=== PATIENT | male | born 1955 | race Caucasian/White ===

== ENCOUNTER → 2017-08-12 08:03 | Outpatient (CLI) | payer BC, SELFPAY ==
[2017-08-12 10:21] LABS: Anion Gap 4 (5-15); BUN 16 mg/dL (7-18); BUN/Creat Ratio 16.6 RATIO (10-20); Calcium,Total 8.4 mg/dL (8.5-10.1); Chloride 105 mmol/L (98-107); Creatinine, Serum 0.96 mg/dL (0.70-1.30); EST Glomerular Filtration Rate 84 mL/min (>60); Est Glom Filt Rate - Afr Amer 101 mL/min (>60); Glucose 102 mg/dL (74-106); Sodium Level 140 mmol/L (136-145)
== END ==
PROVIDERS: Family Provider Family Medicine; PCP Family Medicine; Visit Provider Family Medicine
DX: I10 Essential (primary) hypertension (principal)
CPT/HCPCS: 36415; 80048

== ENCOUNTER → 2018-01-27 08:00 | Outpatient (CLI) | payer OTHER, SELFPAY ==
[2018-01-27 10:52] LABS: ALB/GLOB Ratio 1.2 RATIO (0.9-2.4); AST(SGOT) 18 U/L (15-37); Alanine Aminotransfer ALT/SGPT 27 U/L (16-61); Albumin, Serum 3.8 g/dL (3.2-5.0); Alkaline Phosphatase 65 U/L (45-117); Anion Gap 6 (5-15); BUN 11 mg/dL (7-18); BUN/Creat Ratio 10.7 RATIO (10-20); Calcium,Total 8.5 mg/dL (8.5-10.1); Chloride 106 mmol/L (98-107); Cholesterol 149 mg/dL (200); Creatinine, Serum 1.03 mg/dL (0.70-1.30); EST Glomerular Filtration Rate 77 mL/min (>60); Est Glom Filt Rate - Afr Amer 94 mL/min (>60); Globulin 3.2 g/dL (2.2-4.2); Glucose 103 mg/dL (74-106); High Density Lipoprotein 64 mg/dL; PSA,Total - Annual Screen 0.63 ng/mL (0.00-4.00); Potassium 4.1 mmol/L (3.5-5.1); Sodium Level 142 mmol/L (136-145); Triglycerides 68 mg/dL; Very Low Density Lipoprotein 14 mg/dL (5-40)
== END ==
PROVIDERS: Family Provider Family Medicine; PCP Family Medicine; Visit Provider Family Medicine
DX: E78.5 Hyperlipidemia, unspecified (principal); Z12.5 Encounter for screening for malignant neoplasm of prostate
CPT/HCPCS: 36415; 80053; 80061; 84153; G0103

== ENCOUNTER → 2019-02-01 | Outpatient (CLI) | payer OTHER, SELFPAY ==
[2019-02-01 10:59] LABS: ALB/GLOB Ratio 1.3 RATIO (0.9-2.4); AST(SGOT) 16 U/L (15-37); Alanine Aminotransfer ALT/SGPT 25 U/L (16-61); Alkaline Phosphatase 67 U/L (45-117); Anion Gap 7 (5-15); BUN 11 mg/dL (7-18); BUN/Creat Ratio 11.1 RATIO (10-20); Calcium,Total 8.7 mg/dL (8.5-10.1); Chloride 106 mmol/L (98-107); Cholesterol 147 mg/dL (200); Creatinine, Serum 0.99 mg/dL (0.70-1.30); EST Glomerular Filtration Rate 80 mL/min (>60); Est Glom Filt Rate - Afr Amer 97 mL/min (>60); Globulin 3.1 g/dL (2.2-4.2); Glucose 96 mg/dL (74-106); High Density Lipoprotein 76 mg/dL; PSA,Total - Annual Screen 1.43 ng/mL (0.00-4.00); Potassium 3.8 mmol/L (3.5-5.1); Protein, Total 7.1 g/dL (6.4-8.2); Sodium Level 143 mmol/L (136-145); Triglycerides 74 mg/dL; Very Low Density Lipoprotein 15 mg/dL (5-40)
== END | disposition home or self-care (01) ==
LOC: MFPLAB 08:02
PROVIDERS: Family Provider Family Medicine; PCP Family Medicine; Referring Provider Family Medicine; Visit Provider Family Medicine
DX: I10 Essential (primary) hypertension (principal); Z12.5 Encounter for screening for malignant neoplasm of prostate
CPT/HCPCS: 36415; 80053; 80061; 84153; G0103

== ENCOUNTER → 2019-02-16 | Outpatient (CLI) | payer OTHER, SELFPAY ==
--- NOTE | 2019-02-18 17:04 | STRESSREP_ITS ---
Stress Test Report Date: 02/16/2019 Procedure: Exercise tolerance test/imaging study Indications: Chest pain Consent: Per the patient Procedure: The patient exercised on a Idris protocol for 9 minutes and 30 seconds achieving a peak heart rate of 164 bpm (105 % predicted maximal heart rate) with a peak blood pressure 184/62 mmHg and a peak MET capacity of 10.9 METs. The baseline ECG demonstrated normal sinus rhythm. The peak exercise ECG demonstrated sinus tachycardia with about [address] depression in the inferior and lateral leads. EKG during recovery revealed slow return of ST segments to baseline [There were no cardiac dysrhythmias pretest, during exercise, or recovery]. The functional capacity was considered above average for age. There was [no complaint of chest discomfort during exercise or recovery]. The examination was discontinued secondary to discomfort. Impression: 1. Technically adequate (percent predicted maximal heart rate greater than 85%) exercise tolerance test 2. Stress test is positive for exercise-induced EKG changes of ischemia 3. The test test is negative for exercise-induced chest pain 4. Functional capacity is above average 5. Nuclear images pending Myocardial perfusion imaging study: Technique: The patient was injected with 11.6 mCi of technetium 99m Cardiolite and s ubsequently rest SPECT Cardiolite nuclear imaging was obtained in the horizontal long, vertical long, and short axis views. The patient exercised on a Idris protocol. Please see above for details. The patient was injected with 33.9 mCi of technetium 99m Cardiolite and subsequently stress SPECT Cardiolite nuclear imaging was obtained in the horizontal long, vertical long, and short axis views. A gated Cardiolite study at peak stress was obtained. Interpretation: Rest and stress SPECT Cardiolite nuclear imaging status post realignment, normalization, and attenuation correction, demonstrates mildly decreased radioisotope uptake in the inferior wall on both the rest and stress images prior to attenuation correction. After attenuation correction there appears to be normal overall myocardial radioisotope uptake. The gated Cardiolite study demonstrates [no significant regional wall motion abnormalities]. The reported LVEF is 63 %. Impression: 1. There is[no evidence of significant ischemia or infarction on the nuclear portion of the test. There were however significant EKG changes suggestive of ischemia as noted above. Balanced ischemia can be considered in the differentia l diagnosis]. 2. The gated Cardiolite study reports an LVEF of 63 %. This note was generated with Dragon dictation software. It may contain incorrect words, spelling, and punctuation that were not noted in checking the note before signing.
== END | disposition home or self-care (01) ==
LOC: CVS 06:06
PROVIDERS: Family Provider Family Medicine; PCP Family Medicine; Referring Provider Family Medicine; Visit Provider Family Medicine
DX: R07.9 Chest pain, unspecified (principal)
CPT/HCPCS: 78452; 93017; A9500; A4216

== ENCOUNTER → 2020-02-06 | Outpatient (CLI) | payer MEDICARE, OTHER, SELFPAY ==
[2020-02-06 10:12] LABS: ALB/GLOB Ratio 1.4 RATIO (0.9-2.4); AST(SGOT) 21 U/L (15-37); Alanine Aminotransfer ALT/SGPT 36 U/L (16-61); Alkaline Phosphatase 66 U/L (45-117); Anion Gap 6 (5-15); BUN 14 mg/dL (7-18); Calcium,Total 8.7 mg/dL (8.5-10.1); Chloride 103 mmol/L (98-107); Creatinine, Serum 0.82 mg/dL (0.70-1.30); EST Glomerular Filtration Rate 100 mL/min (>60); Est Glom Filt Rate - Afr Amer 120 mL/min (>60); Globulin 2.9 g/dL (2.2-4.2); Glucose 104 mg/dL (74-106); PSA,Total - Annual Screen 1.03 ng/mL (0.00-4.00); Potassium 4.1 mmol/L (3.5-5.1); Protein, Total 6.9 g/dL (6.4-8.2); Sodium Level 139 mmol/L (136-145)
== END | disposition home or self-care (01) ==
LOC: MFPLAB 08:57
PROVIDERS: PCP Family Medicine; Referring Provider Family Medicine; Visit Provider Family Medicine
DX: E78.5 Hyperlipidemia, unspecified (principal); Z12.5 Encounter for screening for malignant neoplasm of prostate
CPT/HCPCS: 36415; 80053; 84153; G0103

== ENCOUNTER → 2020-02-16 | Outpatient (CLI) | payer MEDICARE, OTHER, SELFPAY ==
--- NOTE | 2020-02-16 08:35 | US_ITS ---
PROCEDURES: ULTRASOUND AORTA REASON FOR EXAM: Male, 64 years old. AAA SCREENING TECHNIQUE: Ultrasound evaluation of the aorta was performed with real-time and static bobo-scale imaging. COMPARISON: None. FINDINGS: There is atherosclerotic plaque formation of the abdominal aorta. Aorta measures: Proximal 1.9 cm. Middle 1.8 cm. Distal 1.8 cm. Aorta measure transversely: Proximal 1.8 cm. Middle 1.5 cm. Distal 1.6 cm. Right iliac artery measures: 1.1 cm. Right iliac artery measure transversely: 1.2 cm. Left iliac artery measures: 1.1 cm. Left iliac artery measure transversely: 1.3 cm. There is no demonstrated aneurysm.. US/Aorta IMPRESSION: Normal abdominal aorta. Electronically Signed: Bobby Hawthorne, at 12:37 EDT , Service support ,
== END | disposition home or self-care (01) ==
LOC: US 08:34
PROVIDERS: PCP Family Medicine; Referring Provider Family Medicine; Visit Provider Family Medicine
DX: Z00.00 Encounter for general adult medical examination without abnormal findings (principal); I10 Essential (primary) hypertension
CPT/HCPCS: 76775

== ENCOUNTER → 2021-02-12 07:16 | Outpatient (CLI) | payer MEDICARE, OTHER, SELFPAY ==
[2021-02-12 10:49] LABS: ALB/GLOB Ratio 1.3 RATIO (0.9-2.4); AST(SGOT) 22 U/L (15-37); Alanine Aminotransfer ALT/SGPT 32 U/L (16-61); Albumin, Serum 3.9 g/dL (3.2-5.0); Alkaline Phosphatase 59 U/L (45-117); Anion Gap 2 (5-15); BUN 17 mg/dL (7-18); BUN/Creat Ratio 18.2 RATIO (10-20); Calcium,Total 8.7 mg/dL (8.5-10.1); Chloride 105 mmol/L (98-107); Cholesterol 165 mg/dL (200); Creatinine, Serum 0.93 mg/dL (0.70-1.30); EST Glomerular Filtration Rate 86 mL/min (>60); Est Glom Filt Rate - Afr Amer 104 mL/min (>60); Glucose 103 mg/dL (74-106); High Density Lipoprotein 80 mg/dL; PSA,Total - Annual Screen 0.77 ng/mL (0.00-4.00); Potassium 3.9 mmol/L (3.5-5.1); Protein, Total 6.9 g/dL (6.4-8.2); Sodium Level 138 mmol/L (136-145); Triglycerides 54 mg/dL; Very Low Density Lipoprotein 11 mg/dL (5-40)
== END ==
PROVIDERS: PCP Family Medicine; Referring Provider Family Medicine; Visit Provider Family Medicine
DX: I10 Essential (primary) hypertension (principal); Z12.5 Encounter for screening for malignant neoplasm of prostate
CPT/HCPCS: 36415; 80053; 80061; 84153; G0103

== ENCOUNTER → 2022-02-12 | Outpatient (CLI) | payer MEDICARE, OTHER, SELFPAY ==
[2022-02-12 11:01] LABS: ALB/GLOB Ratio 1.2 RATIO (0.9-2.4); AST(SGOT) 18 U/L (15-37); Alanine Aminotransfer ALT/SGPT 29 U/L (16-61); Albumin, Serum 3.7 g/dL (3.2-5.0); Alkaline Phosphatase 53 U/L (45-117); Anion Gap 7 (5-15); BUN 15 mg/dL (7-18); BUN/Creat Ratio 16.1 RATIO (10-20); Calcium,Total 8.8 mg/dL (8.5-10.1); Chloride 106 mmol/L (98-107); Cholesterol 147 mg/dL (200); Creatinine, Serum 0.93 mg/dL (0.70-1.30); EST Glomerular Filtration Rate 86 mL/min (>60); Est Glom Filt Rate - Afr Amer 104 mL/min (>60); Glucose 104 mg/dL (74-106); High Density Lipoprotein 67 mg/dL; PSA,Total - Annual Screen 0.84 ng/mL (0.00-4.00); Potassium 3.5 mmol/L (3.5-5.1); Protein, Total 6.7 g/dL (6.4-8.2); Sodium Level 142 mmol/L (136-145); Triglycerides 71 mg/dL; Very Low Density Lipoprotein 14 mg/dL (5-40)
== END | disposition home or self-care (01) ==
LOC: MFPLAB 07:59
PROVIDERS: PCP Family Medicine; Visit Provider Family Medicine
DX: Z00.00 Encounter for general adult medical examination without abnormal findings (principal); Z12.5 Encounter for screening for malignant neoplasm of prostate; I10 Essential (primary) hypertension
CPT/HCPCS: 36415; 80053; 80061; 84153; G0103

== ENCOUNTER 2022-05-23 06:55 | Day surgery (SDC) | payer MEDICARE, OTHER, SELFPAY ==
[2022-05-23 07:17] VITALS: BP 157/68; PULSE 64; RESP 16; TEMP 36.2; O2SAT 100; BMI 21.4
[2022-05-23] MEDS: Lactated Ringers 1,000 ML 15 ML IV (07:20)
--- NOTE | 2022-05-23 07:46 | H&P.OPEN ---
HPI - General HPI Narrative DENYS AGUILAR, is a 67 M who presents for colonoscopy. His last colonoscopy was 10 years ago and was normal. He denies any abdominal pain or blood in the stool. He has no family history of colon cancer. [facility] Medical History (Updated 05/21/22 @ 11:52 by Sherie Potts) Alcohol use Benign essential HTN High cholesterol History of echocardiogram History of stress test Hyperlipidemia, unspecified Hypertension Non-smoker Wears contact lenses Wears glasses Home Medications atorvastatin 10 mg tablet 10 mg PO QHS 12/31/16 [History Last Taken 12/31/16] epinephrine 0.3 mg/0.3 mL injection, auto-injector 0.3 mg (0.3 mL) IM X1 #2 syringes 12/31/16 [Rx Last Taken Unknown] ramipril 10 mg capsule 20 mg PO DAILY 12/31/16 [History Last Taken 05/23/22 05:00] amlodipine 10 mg tablet (Norvasc) 10 mg PO DAILY 04/17/22 [History Last Taken 05/23/22 05:00] aspirin 81 mg tablet,delayed release (Adult Low Dose Aspirin) 81 mg PO DAILY 04/17/22 [History Last Taken Unknown] latanoprost 0.005 % eye drops 1 drp ophthalmic (eye) DAILY 04/17/22 [History Last Taken Unknown] multivitamin 1 tab PO DAILY 04/17/22 [History Last Taken Unknown] omega 8-jtc-lps-fish oil 300 mg-1,000 mg capsule (Fish Oil) 1 cap PO DAILY 04/17/22 [History Last Taken Unknown] psyllium husk 0.4 gram capsule (Daily Fiber) 0.8 g PO DAILY 04/17/22 [History Last Taken Unknown] hydrochlorothiazide 12.5 mg tablet 12.5 mg PO DAILY 05/21/22 [History Last Taken Unknown] Allergy/AdvReac Type Severity Reaction Status Date / Time hornet venom Allergy Swelling Verified 05/23/22 07:16 venom-honey bee Allergy Swelling Verified 05/23/22 07:16 Family History (Updated 04/17/22 @ 08:43 by Sherice Hutson) Brother Renal failure Leukemia Brother Throat cancer Father Lung cancer Mother Heart disease Surgical History (Updated 05/21/22 @ 11:52 by Sherie Potts) History of colonoscopy History of eye surgery History of removal of skin mole History of right knee surgery Social History (Updated 04/17/22 @ 08:44 by Sherice Hutson) household members: spouse current occupational status: retired Smoking Status: Never smoker Past Medical/Surgical History Planned Operation Planned Operative Procedure/s: CSCOPE Previous Hospitalizations/Surgeries HX Hospitalizations: No Any Problems With Anesthesia: No You/Your Family Experience Fever (Hyperthermia) With Anes: No Cholinesterase deficiency: No Cardiovascular Hx Hypertension: Yes (COTNROLLED WITH MED) Hx Cardiac Catheterization: No Respiratory Hx Chronic Obstructive Pulmonary Disease (COPD): No Hx Asthma: No Hx Emphysema: No Hx Sleep Apnea: No Hx Respiratory Tract Infection/Cold (presently): No Do You Snore Loudly (louder than talking or can be heard): No Do You Often Feel Tired/ Fatigued/ Sleepy Dring Daytime?: No Has Anyone Observed You Stop Breathing During Sleep?: No Result (for STOP score): Negative Smoking Status: Never smoker Neurological Hx Seizures: No Hx Back Injury/Pain: No Does patient have nerve stimulator: No Blood Disorder Hx High Cholesterol: No Hx Hepatitis: No Hx Cirrhosis: No Endocrine Hx Diabetes: No Psycho/Social Hx Substance Use: No Hx Alcohol Use: Yes (24 FL OZ OF WINE OR BEER) Hx Anxiety: No Hx Depression: No Miscellaneous Recent Exposure to Contagious Disease: No Allergies hornet venom Allergy (Verified 05/23/22 07:16) Swelling Has Epipen venom-honey bee Allergy (Verified 05/23/22 07:16) Swelling Has Epipen Discharge Is Pt Admitted From a Long Term, or a Chcf: No After D/C, Where Do you Plan to Go: Return Home From the [facility] History Number of Risk Factors: 1 Vital Signs Vital Signs Vital Signs: 05/23/22 07:17 05/23/22 07:17 Temperature 97.1 F L Temperature Source Temporal Pulse Rate 64 Respiratory Rate 16 Respiratory Pattern Normal Blood Pressure 157/68 H Blood Pressure Mean 97 Blood Pressure Source Monitor Blood Pressure Position Sitting Blood Pressure Location Right Arm Pulse Ox 100 Oxygen Delivery Method Room Air Weight Weight: 145 lb 8.081 oz Body Mass Index (BMI) 21.4 Physical Exam Const alert and oriented x3 HEENT normocephalic Eyes PERRL Resp normal respiratory effort and normal air movement Cardio regular rate and regular rhythm GI soft to palpation, non-tender and non-distended Extremity normal to inspection Assessment & Plan Assessment/Plan (1) Encounter for screening for malignant neoplasm of colon: PLAN: I explained endoscopy in detail to the patient. I explained the risks including but not limited to stroke or heart attack with anesthesia, perforation of the GI tract, bleeding, infection. I explained that any of these could necessitate further emergency surgery. The patient understands and all questions were answered sufficiently. The patient wishes to proceed with procedure. Thomas Montoya MD Pager: [facility] [address] [place] [address] [address] [place] [address] Office: Surgery Risks - Colonoscopy Risks Include but are not Limited To: Risks include but are not limited to: Bleeding, perforation requiring further surgery, inability to complete colonoscopy requiring barium enema.
[2022-05-23 08:20] VITALS: BP 157/68; BP 99/60; PULSE 61; RESP 18; TEMP 36.3; O2SAT 98
[2022-05-23 08:25] VITALS: BP 157/68; BP 96/59; PULSE 59; RESP 12; O2SAT 99
[2022-05-23 08:30] VITALS: BP 102/65; BP 157/68; PULSE 61; RESP 12; O2SAT 99
--- NOTE | 2022-05-23 08:32 | OP.COLON_ITS ---
Patient Name: Sohan Sargent Procedure Date: 05/23/2022 7:51 AM Date of : 1955 Age: 67 Procedure: Colonoscopy Indications: Screening for colorectal malignant neoplasm Providers: Thomas Montoya MD Referring MD: Kenny Carlson Medicines: Monitored Anesthesia Care Patient Profile: This is a 67 year old male. Refer to note in patient chart for documentation of history and physical. Last Colonoscopy: none. The patient's first colonoscopy is today. Complications: No immediate complications. Procedure: Pre-Anesthesia Assessment: - Prior to the procedure, a History and Physical was performed, and patient medications and allergies were reviewed. The patient's tolerance of previous anesthesia was also reviewed. The risks and benefits of the procedure and the sedation options and risks were discussed with the patient. All questions were answered, and informed consent was obtained. Prior Anticoagulants: The patient has taken no previous anticoagulant or antiplatelet agents. After reviewing the risks and benefits, the patient was deemed in satisfactory condition to undergo the procedure. After I obtained informed consent, the scope was passed under direct vision. Throughout the procedure, the patient's blood pressure, pulse, and oxygen saturations were monitored continuously. The pediatric colonoscope was introduced through the anus and advanced to the cecum, identified by appendiceal orifice and ileocecal valve. The colonoscopy was performed without difficulty. The patient tolerated the procedure well. The quality of the bowel preparation was good. Scope In: 7:57:34 AM Scope Withdrawal Time 0 hours 5 minutes 6 seconds Scope Out: 8:11:22 AM Total Procedure Duration Time 0 hours 13 minutes 48 seconds Findings: The entire examined colon appeared normal on direct and retroflexion views. Impression: - The entire examined colon is normal on direct and retroflexion views. - No specimens collected. Recommendation: - Discharge patient to home. - Resume previous diet. - Continue present medications. - Repeat colonoscopy in 10 years for screening purposes. Procedure Code(s): --- Professional --- G0121, Colorectal cancer screening; colonoscopy on individual not meeting criteria for high risk Diagnosis Code(s): --- Professional --- Z12.11, Encounter for screening for malignant neoplasm of colon CPT copyright 2017 [employer]. All rights reserved. The codes documented in this report are preliminary and upon certified coder review may be revised to meet current compliance requirements. Thomas Montoya MD 05/23/2022 8:31:54 AM This report has been signed electronically. Number of Addenda: 0 Note Initiated On: 05/23/2022 7:51 AM
--- NOTE | 2022-05-23 08:33 | OP.CCLET_ITS ---
05/23/2022 Kenny Carlson [address] [place] [address] Re : Colonoscopy procedure for Sohan Sargent Dear Dr. Carlson This procedure was performed on Monday, May 23, 2022. My impressions and recommendations are as follows: Impressions : - The entire examined colon is normal on direct and retroflexion views. - No specimens collected. Recommendations : - Discharge patient to home. - Resume previous diet. - Continue present medications. - Repeat colonoscopy in 10 years for screening purposes. My findings are described in the full procedure note, which is enclosed. If I can be of further assistance, please feel free to contact me at Doctor phone number(s): , Work: . Sincerely, Thomas Montoya MD 05/23/2022 8:31:54 AM This report has been signed electronically.
[2022-05-23 08:35] VITALS: BP 107/69; BP 157/68; PULSE 64; RESP 18; TEMP 36.5; O2SAT 100
[2022-05-23 08:59] VITALS: BP 157/68
== END 2022-05-23 09:04 | disposition home or self-care (01) ==
LOC: EN 06:58 → AC 07:00
PROVIDERS: PCP Family Medicine; Referring Provider Family Medicine; Visit Provider Surgery
PROC: 0DJD8ZZ Inspection of Lower Intestinal Tract, Via Natural or Artificial Opening Endoscopic (ICD-10-PCS; CPT 45378; principal; 2022-05-23 07:55)
DX: Z12.11 Encounter for screening for malignant neoplasm of colon (principal); I10 Essential (primary) hypertension; E78.00 Pure hypercholesterolemia, unspecified; Z79.82 Long term (current) use of aspirin; Z79.899 Other long term (current) drug therapy
CPT/HCPCS: G0121; J7120; J2405

== ENCOUNTER → 2023-02-12 | Outpatient (CLI) | payer MEDICARE, OTHER, SELFPAY ==
[2023-02-12 12:59] LABS: ALB/GLOB Ratio 1.2 RATIO (0.9-2.4); AST(SGOT) 22 U/L (15-37); Alanine Aminotransfer ALT/SGPT 37 U/L (16-61); Albumin, Serum 3.9 g/dL (3.2-5.0); Alkaline Phosphatase 62 U/L (45-117); Anion Gap 5 (5-15); BUN 13 mg/dL (7-18); BUN/Creat Ratio 14.9 RATIO (10-20); Chloride 105 mmol/L (98-107); Cholesterol 157 mg/dL (200); Creatinine, Serum 0.87 mg/dL (0.70-1.30); EST Glomerular Filtration Rate 92 mL/min (>60); Est Glom Filt Rate - Afr Amer 112 mL/min (>60); Globulin 3.2 g/dL (2.2-4.2); Glucose 107 mg/dL (74-106); High Density Lipoprotein 72 mg/dL; PSA,Total - Annual Screen 1.26 ng/mL (0.00-4.00); Potassium 3.9 mmol/L (3.5-5.1); Protein, Total 7.1 g/dL (6.4-8.2); Sodium Level 139 mmol/L (136-145); Triglycerides 69 mg/dL; Very Low Density Lipoprotein 14 mg/dL (5-40)
== END | disposition home or self-care (01) ==
LOC: MTLAB 10:12
PROVIDERS: PCP Family Medicine; Visit Provider Family Medicine
DX: E78.5 Hyperlipidemia, unspecified (principal); Z12.5 Encounter for screening for malignant neoplasm of prostate
CPT/HCPCS: 36415; 80053; 80061; 84153; G0103

== ENCOUNTER → 2024-03-10 | Outpatient (CLI) | payer MEDICARE, OTHER, SELFPAY ==
[2024-03-10 12:54] LABS: ALB/GLOB Ratio 1.3 RATIO (0.9-2.4); AST(SGOT) 19 U/L (15-37); Alanine Aminotransfer ALT/SGPT 26 U/L (16-61); Albumin, Serum 4.2 g/dL (3.2-5.0); Alkaline Phosphatase 58 U/L (45-117); Anion Gap 4 (5-15); BUN 14 mg/dL (7-18); BUN/Creat Ratio 15.1 RATIO (10-20); Calcium,Total 9.5 mg/dL (8.5-10.1); Chloride 103 mmol/L (98-107); Cholesterol 171 mg/dL (200); Creatinine, Serum 0.93 mg/dL (0.70-1.30); EST Glomerular Filtration Rate 86 mL/min (>60); Est Glom Filt Rate - Afr Amer 104 mL/min (>60); Globulin 3.2 g/dL (2.2-4.2); Glucose 112 mg/dL (74-106); High Density Lipoprotein 88 mg/dL; PSA,Total - Annual Screen 1.13 ng/mL (0.00-4.00); Potassium 3.9 mmol/L (3.5-5.1); Protein, Total 7.4 g/dL (6.4-8.2); Sodium Level 137 mmol/L (136-145); Triglycerides 59 mg/dL; Very Low Density Lipoprotein 12 mg/dL (5-40)
== END | disposition home or self-care (01) ==
LOC: MFPLAB 10:46
PROVIDERS: PCP Family Medicine; Referring Provider Family Medicine; Visit Provider Family Medicine
DX: I10 Essential (primary) hypertension (principal); Z12.5 Encounter for screening for malignant neoplasm of prostate
CPT/HCPCS: 36415; 80053; 80061; 84153; G0103

== ENCOUNTER → 2024-05-18 | Outpatient (CLI) | payer MEDICARE, OTHER, SELFPAY ==
--- NOTE | 2024-05-18 16:20 | STRESSREP ---
Stress Test Report Exercise myocardial perfusion stress test. 69-year-old man with an abnormal calcium score Stress protocol: Resting EKG demonstrates normal sinus rhythm with a rate of 59 bpm resting blood pressure is 152/76 mmHg. The patient exercised according to the regular Idris protocol for a total duration of 10 minutes attaining a maximum heart rate of 176 bpm which was 117 of maximum predicted heart rate; the maximum workload was 13.4 metabolic equivalents. At rest there were no ST or T wave changes noted to suggest ischemia and at peak exercise upsloping ST changes were noted which were suggestive but not diagnostic of ischemia. During early recovery there was approximately [address] depression noted in V5 and V6. No clinical angina was noted the test was terminated due to the target heart rate being achieved/fatigue. The peak blood pressure was 174/76 mmHg. Rate-pressure product was 23,300. Myocardial perfusion protocol. 11.8 mCi of technetium 99m sestamibi was injected at rest. The patient exercised according to regular Idris protocol for total duration of 10 minutes and at peak exercise 34.3 mCi of technetium 99m sestamibi was injected stress images were obtained stress and rest images were reconstructed in comparing the short axis vertical long and horizontal long axis. Gated images were also obtained. Perfusion SPECT analysis: Review of the stress images demonstrate normal uptake of tracer noted in all areas of the myocardium. The resting images similarly demonstrate normal uptake of tracer noted in all areas of the myocardium. No areas of reversibility are noted to suggest ischemia no previous infarct was noted. Gated SPECT analysis: The gated ejection fraction is 59%. Conclusion: Normal exercise myocardial perfusion stress test at a high workload Preserved ejection fraction. Suggestive but nondiagnostic EKG changes
== END | disposition home or self-care (01) ==
LOC: CVS 05:59
PROVIDERS: PCP Family Medicine; Referring Provider Family Medicine; Visit Provider Family Medicine
DX: I25.10 Atherosclerotic heart disease of native coronary artery without angina pectoris (principal)
CPT/HCPCS: 78452; 93017; A9500; A4216

== ENCOUNTER → 2024-07-06 | Outpatient (CLI) | payer MEDICARE, OTHER, SELFPAY ==
[2024-07-06 11:43] LABS: Hematocrit 37.4 % (40-54); Hemoglobin 13.5 g/dL (13.0-16.5); Mean Corp Hgb Conc 36.1 g/dL (32-36); Mean Corpuscular Volume 91.4 fL (80-94); Platelet Count 197 K/mm3 (150-450); RBC Distribution Width CV 14.9 % (11.6-14.6); RBC Distribution Width SD 49.6 fl (35.1-43.9); Red Blood Count 4.09 M/mm3 (4.6-6.2); White Blood Count 6.2 K/mm3 (4.4-11.0)
[2024-07-06 12:07] LABS: Anion Gap 5 (5-15); BUN 14 mg/dL (7-18); BUN/Creat Ratio 15.9 RATIO (10-20); Calcium,Total 9.3 mg/dL (8.5-10.1); Chloride 102 mmol/L (98-107); Creatinine, Serum 0.88 mg/dL (0.70-1.30); EST Glomerular Filtration Rate 91 mL/min (>60); Est Glom Filt Rate - Afr Amer 110 mL/min (>60); Glucose 105 mg/dL (74-106); Potassium 3.8 mmol/L (3.5-5.1); Sodium Level 139 mmol/L (136-145)
== END | disposition home or self-care (01) ==
LOC: LAB 10:58
PROVIDERS: PCP Family Medicine; Referring Provider Internal Medicine Cardiovascular Disease; Visit Provider Internal Medicine Cardiovascular Disease
DX: I25.10 Atherosclerotic heart disease of native coronary artery without angina pectoris (principal); I10 Essential (primary) hypertension; R93.1 Abnormal findings on diagnostic imaging of heart and coronary circulation; E78.5 Hyperlipidemia, unspecified
CPT/HCPCS: 36415; 80048; 85027

== ENCOUNTER 2024-07-18 08:06 | Day surgery (SDC) | payer MEDICARE, OTHER, SELFPAY ==
[2024-07-15 08:23] VITALS: BMI 25.4
--- NOTE | 2024-07-18 10:19 | CL.D_ITS ---
Patient Name: DENYS AGUILAR Study Date: 07/18/2024 Performing: James Norris MD Ht: 63 inches 160.02 cm : 1955 Wt: 144.01 lbs 65.32 kg Age: 69 Gender: male BSA: 1.68 PROCEDURE(S) PERFORMED DC01-(99205)LHC/COR/LV IC12-(74117/C9600)MANJIT W/WO PTCA, SINGLE CORONARY ARTERY CLINICAL PROFILE AND INDICATIONS Indications: Suspected CAD Heart Failure: None Stress/Imaging Coronary Calcium Score: Yes Calcium Score: 2300Calcium Score: 2300 CAD Presentations: No Sxs, no angina. CONCLUSIONS Severe two-vessel disease with high-grade stenosis noted of the mid right coronary artery and moderate left anterior descending artery stenosis with calcification. RECOMMENDATIONS Consider PCI to the right coronary artery and aggressively manage the rest of the vessels with medical therapy. DESCRIPTION OF PROCEDURE The patient arrived to the procedure lab. The risks and benefits of the procedure as well as a full description of our services here and current unavailability of surgical backup were fully explained to the patient and/or their significant other prior to the catheterization. The Timeout was completed, verifying the correct patient and procedure. The patient's procedural site was prepped and draped in the usual fashion. Local anesthetic was given subcutaneously to right radial region with Lidocaine 2%. Using a modified Seldinger technique, arterial access was obtained via the right radial artery, a 6Fr sheath was inserted. Left Coronary Artery selective angiography was performed in multiple views using a 5 Fr. 4.0 [place] catheter. Right Coronary Artery selective angiography was then performed in multiple views using a 5 Fr. 4.0 [place] catheter. Left Ventriculography was performed in HAYES projection using a 5 Fr. [place] catheter. LV to AO pullback pressures were then recorded. CORONARY ANGIOGRAPHY DOMINANCE: Right Dominant LEFT HEART ASSESSMENT Left Ventricular Ejection Fraction: by LV Gram 65 % Normal LV wall motion Normal Left Ventricular systolic function LEFT MAIN: Mild calcification, Mild luminal irregularities LEFT ANTERIOR DESCENDING ARTERY: Moderate calcification, Medium size vessel with 3 diagonal branches with no significant stenosis and calcification noted in the proximal and mid regions. At the takeoff of the third diagonal branch there is an area of stenosis of approximately 60 to 70%. CIRCUMFLEX ARTERY: Mild luminal irregularities less than 30% RIGHT CORONARY ARTERY: Dominant vessel with significant calcification in the midsegment irregular lesion of approximately 80%. The vessel then continues and gives of a posterior descending into posterolateral vessels with mild disease only. COMPLICATIONS PROCEDURE MEDICATIONS Fentanyl 50 mcg IV Versed 1 mg IV Versed 1 mg IV Oxygen: 2 L/min via nasal cannula Brilinta 180 mg PO @ 07/18/2024 10:11:01 Heparin given IA 07/18/2024 09:24:05 Heparin 3000 unit(s) IV 07/18/2024 10:13:10 Verapamil 2.5mg, Ntg 100mcgs, 3000 units of Heparin given IA 07/18/2024 09:24:05 SUMMARY OF HEMODYNAMIC DATA Time AIR REST ECG 08:25:45 AO 156/75 (107) SA 09:50:06 AO 123/66 (91) 09:52:24 LV 135/11, 22 09:56:55 LV 133/11, 21 09:57:00 LV 130/9, 22 09:57:29 LV 122/10, 22 09:57:38 LVp 126/9, 28 09:57:42 AOp 138/63 (95) 09:57:49 AO 139/63 (91) 10:14:24 10:14:33 Signed By James Norris MD On 07/18/2024 10:18:16 James Norris MD
--- NOTE | 2024-07-18 11:03 | CRPHASE1 ---
Patient Communication Patient Information Former Patient:: Phase II PHII Cardiac Rehab Discussed with Patient:: Yes Guide to Cardiac Rehab Given to Patient:: Yes Cardiac Rehab Facility Choice List Given to Patient:: Yes Communication to Cardiac Rehab Choice Program Other:: Communication Given to CR Management Architect:: Hammad Zuñiga Refer Phase II Cardiac Rehab:: Yes Sessions:: 36 sessions - 2 days/wk, 18 weeks Post Discharge Phase I Charge:: Level I - Education Medical/Surgical History Medical History HI:: No Angina:: No CAD:: Yes Congestive Heart Failure: Cardiomyopathy:: No Valve Disease/Replacement:: No Pulmonary:: No COPD:: No Asthma:: No YARY:: No Diabetes:: No Diabetes Type I:: No Diabetes Type II:: No Hypertension:: Yes Dyslipidemia:: Yes Arrhythmias:: No EPS:: No CVA/TIA: CEA:: No PE:: No DVT:: No PVD:: No PAD:: No Arthritis:: No GI:: No GERD:: No Cancer:: No Renal:: No Thyroid:: No Depression:: No Anxiety:: No Surgical History CABG: No PTCA:: Yes ICD:: No Pacemaker:: No Orthopedic:: No Cardiac Rehabilitation Info Program Information Cardiac Rehabilitation Program Information: Cardiac Rehab The cardiac rehab team at [facility] consists of highly skilled exercise physiologists, nurses, respiratory therapists and physicians working together with you. Our purpose is to help you have a full recovery and achieve the goals you set for yourself. Over the years many of our patients have returned to activities they assumed they would never do again! We can help restore your confidence and motivation to make lifestyle changes that can have a significant impact on your health and quality of life! We can help answer questions and concerns you may have about exercise, lifestyle, medications, diet, stress and anxiety which are common following a hospitalization. WE monitor ECG and vital signs during exercise and discuss your progress with you and report to your physician(s). Cardiac Rehab is proven to help reduce readmissions, improve functional capacity and lower recurrence of problems with your heart. Our Cardiac Rehab program is Certified by the [place] [employer] Pulmonary [employer] (AACVPR) and Accredited by the [employer] through our [facility]. You can contact us at . We invite you to call us with your questions or to get started in our program. If you have other questions or concerns be sure to ask your physician/provider during your follow-up visit. WE look forward to seeing you!
--- NOTE | 2024-07-18 11:05 | CRPHASE1 ---
Cardiac Rehabilitation Info Program Information Cardiac Rehabilitation Program Information: Cardiac Rehab The cardiac rehab team at [facility] consists of highly skilled exercise physiologists, nurses, respiratory therapists and physicians working together with you. Our purpose is to help you have a full recovery and achieve the goals you set for yourself. Over the years many of our patients have returned to activities they assumed they would never do again! We can help restore your confidence and motivation to make lifestyle changes that can have a significant impact on your health and quality of life! We can help answer questions and concerns you may have about exercise, lifestyle, medications, diet, stress and anxiety which are common following a hospitalization. WE monitor ECG and vital signs during exercise and discuss your progress with you and report to your physician(s). Cardiac Rehab is proven to help reduce readmissions, improve functional capacity and lower recurrence of problems with your heart. Our Cardiac Rehab program is Certified by the [employer]-Vascular and Pulmonary Rehabilitation (AACVPR) and Accredited by the [employer] through our [facility]. You can contact us at . We invite you to call us with your questions or to get started in our program. If you have other questions or concerns be sure to ask your physician/provider during your follow-up visit. WE look forward to seeing you!
--- NOTE | 2024-07-18 11:06 | CRPH1.INST_ITS ---
General Education Discussed with Patient CAD and cardiac anatomy and function:: Patient communicates acknowledgment and Family communicates acknowledgment Explanation of diagnoses and procedures:: Patient communicates acknowledgment and Family communicates acknowledgment Sign/Symptoms of UT:: Patient communicates acknowledgment and Family communicates acknowledgment Antiplatelet therapy: Patient communicates acknowledgment and Family communicates acknowledgment Proper use of NTG-SL: Patient communicates acknowledgment and Family communicates acknowledgment Emergency procedures and activation of EMS: Patient communicates acknowledgment and Family communicates acknowledgment Compliance of all prescribed medications: Patient communicates acknowledgment and Family communicates acknowledgment Smoking Risk Factors Patient Nicotine/Smoking Risk Factors Are:: Never smoked Dyslipidemia Risk Factors Patient Dyslipidemia Risk Factors Are:: Total Cholesterol Recommendations Recommendations Include:: Lipid profile not available Response Code Dyslipidemia Response Code:: Patient communicates acknowledgment and Family communicates acknowledgment Overweight/Obesity Risk Factors Patient Overweight/Obesity Risk Factors Are:: BMI Normal [18-25 & < 65 years o ld] Recommendations Recommendations Include:: Exercise 5-7 times/week Response Code Overweight/Obesity:: Patient communicates acknowledgment Hypertension Recommendations Recommendations Include:: Maintain BP <130/85 and Decrease/maintain normal body weight Response Code Hypertension:: Patient communicates acknowledgment and Family communicates acknowledgment Heart Disease Risk Factors Patient Heart Disease Risk Factors Are:: Previous cardiac event Recommendations Recommendations Include:: Educated family members of their risk and Educated family members of importance of prevention of heart disease Response Code Heart Disease Response Code:: Patient communicates acknowledgment and Family communicates acknowledgment Diabetes Risk Factors Patient Diabetes Risk Factors Are:: No documented hx of diabetes Metabolic Syndrome Recommendations Recommendations Include:: Reinforce compliance to risk factor modifications Response Code Metabolic Syndrome Response Code:: Patient communicates acknowledgment and Family communicates acknowledgment Sedentary Recommendations Recommendations Include:: Benefits of regular exercise Response Code Sedentary Response Code:: Patient communicates acknowledgment and Family communicates acknowledgment Stress Risk Factors Patient Stress Risk Factors Are:: Patient denies stress as a risk factor
--- NOTE | 2024-07-20 11:59 | CL.I_ITS ---
Patient Name: DENYS AGUILAR Study Date: 07/18/2024 Performing: Regan Zuñiga MD Ht: 63 inches 160.02 cm : 1955 Wt: 144.2 lbs 65.32 kg Age: 69 Gender: male BSA: 1.68 PROCEDURE(S) PERFORMED IC12-(12244/C9600)MANJIT W/WO PTCA, SINGLE CORONARY ARTERY CLINICAL PROFILE AND CO-MORBIDITIES Indications: Suspected CAD Heart Failure: None Stress/Imaging Coronary Calcium Score: Yes Calcium Score: 2300 Calcium Score: 2300 CAD Presentations: No Sxs, no angina. CONCLUSIONS Successful MANJIT to mRCA RECOMMENDATIONS DESCRIPTION OF PROCEDURE The patient arrived to the procedure lab. The risks and benefits of the procedure as well as a full description of our services here and current unavailability of surgical backup were fully explained to the patient and/or their significant other prior to the catheterization. The Timeout was completed, verifying the correct patient and procedure. The patient's procedural site was prepped and draped in the usual fashion. Local anesthetic was given subcutaneously to right radial region with Lidocaine 2% Using a modified Seldinger technique,arterial access was obtained via the right radial artery, a 6Fr sheath was inserted. Left Coronary Artery selective angiography was performed in multiple views using a 5 Fr. 4.0 [place] catheter. Right Coronary Artery selective angiography was then performed in multiple views using a 5 Fr. 4.0 [place] catheter. Left Ventriculography was performed in HAYES projection using a 5 Fr. Pigtail catheter. LV to AO pullback pressures were then recorded.The images were reviewed and options discussed. A decision was then made to proceed with an Intervention, IVUS or other adjunct procedure. AR 2 Guide catheter was inserted and engaged into the RCA. {L1} BMW Guide wire was advanced to the RCA. Angiogram performed pre balloon dilatation. EMERGE 2.5 X 15 Balloon catheter was inserted. Balloon catheter was advanced across lesion in the right coronary, mid. PTCA balloon inflated at 10 atms for 24 secs. PTCA balloon inflated at 10 atms for 20 secs. PTCA balloon inflated at 12 atms for 18 secs. PTCA balloon inflated at 12 atms for 12 secs. Angiogram performed post balloon dilatation. KELSEA FRONTIER 2.75 X 22 Drug Eluting stent was inserted. Drug Eluting stent was advanced across the lesion in the right coronary, mid. Angiogram performed post stent deployment. The arterial sheath was pulled and a TR Band was applied for hemostasis 10 ml of air INTERVENTION INFORMATION LESION SITE: RCA (Mid) Lesion Complexity: High/C, chronic total occlusion: No, lesion at bifurcation: No, thrombus present: No, lesion length: 21 mm, culprit lesion: Yes, Previously treated lesion: No Pre Stenosis: 85 % Pre intervention LEROY flow: 3 PROCEDURE: Drug Eluting Stent with pre dilatation. Post Stenosis: 0 % Post intervention LEROY flow: 3 Lesion Devices: [place] .014 190cm BMW Shaw Straight Cordis 6 Fr AR2 100cm Guide Catheter Jayme Sci EMERGE MR 2.50x15 BALLOON Medtronic 2.75 x 22 KELSEA FRONTIER MANJIT COMPLICATIONS No Complications PROCEDURE MEDICATIONS Fentanyl 50 mcg IV Versed 1 mg IV Versed 1 mg IV Oxygen: 2 L/min via nasal cannula Brilinta 180 mg PO @ 07/18/2024 10:11:01 Heparin given IA 07/18/2024 09:24:05 Heparin 3000 unit(s) IV 07/18/2024 10:13:10 Plavix 300 mg PO 07/18/2024 16:36:55 Verapamil 2.5mg, Ntg 100mcgs, 3000 units of Heparin given IA 07/18/2024 09:24:05 SUMMARY OF HEMODYNAMIC DATA Time AIR REST ECG 08:25:45 AO 156/75 (107) SA 09:50:06 AO 123/66 (91) 09:52:24 LV 135/11, 22 09:56:55 LV 133/11, 21 09:57:00 LV 130/9, 22 09:57:29 LV 122/10, 22 09:57:38 LVp 126/9, 28 09:57:42 AOp 138/63 (95) 09:57:49 AO 139/63 (91) 10:14:24 AIR REST 10:14:33 Signed By Regan Zuñiga MD On 07/20/2024 11:58:47 Regan Zuñiga MD
== END 2024-07-18 16:37 | disposition home or self-care (01) ==
PROVIDERS: PCP Family Medicine; Referring Provider Internal Medicine Cardiovascular Disease; Visit Provider Internal Medicine Cardiovascular Disease
DX: I25.10 Atherosclerotic heart disease of native coronary artery without angina pectoris (principal); I10 Essential (primary) hypertension; E78.5 Hyperlipidemia, unspecified; R93.1 Abnormal findings on diagnostic imaging of heart and coronary circulation; Z82.49 Family history of ischemic heart disease and other diseases of the circulatory system; Z79.82 Long term (current) use of aspirin; Z79.899 Other long term (current) drug therapy
CPT/HCPCS: 92928; 93005; 93458; 99152; 99153; C1887; Q9967; C1725; C1769; C1874; C1894; C9600; J1327

== ENCOUNTER → 2024-07-21 | Outpatient (CLI) | payer MEDICARE, OTHER, SELFPAY ==
--- NOTE | 2024-07-21 08:00 | CR.HP_ITS ---
CR - History & Physical General Arrival date:: 07/21/24 Arrival time:: 08:01 Date of Referral:: 07/18/24 Date of CR Evaluation:: 07/21/24 Referring Physician: Dr. Norris Primary Diagnosis: PCI with stent History of Present Cardiac Event Onset Date PTCA or coronary stenting:: Yes (07/18/24 onset) Medications Ambulatory Orders ?Medication ?Instructions ?Recorded epinephrine 0.3 mg/0.3 mL 0.3 mg (0.3 mL) IM X1 #2 syr inges 12/31/16 injection, auto-injector ramipril 10 mg capsule 20 mg PO DAILY 12/31/16 amlodipine 10 mg tablet (Norvasc) 10 mg PO DAILY 04/17 aspirin 81 mg tablet,delayed 81 mg PO DAILY 04/17/22 release (Adult Low Dose Aspirin) latanoprost 0.005 % eye drops 1 drp ophthalmic (eye) D AILY 04/17/22 omega 1-lcm-xgh-fish oil 300 1 cap PO DAILY 04/17/22 mg-1,000 mg capsule (Fish Oil) psyllium husk 0.4 gram capsule 0.8 g PO DAILY 04/17/22 (Daily Fiber) hydrochlorothiazide 12.5 mg tablet 12.5 mg PO DAILY multivitamin 1 tab PO DAILY 07/06/24 timolol maleate 0.5 % eye drops drp ophthalmic (eye) c ontrol eye 07/06/24 pressure atorvastatin 40 mg tablet 40 mg PO DAILY control coles terol 07/18/24 #60 tabs clopidogrel 75 mg tablet (Plavix) 75 mg PO QDAY #90 ta bs 07/18/24 Allergies Allergies hornet venom Allergy (Verified 07/06/24 10:01) Swelling Has Epipen venom-honey bee Allergy (Verified 07/06/24 10:01) Swelling Has Epipen Sleep Disorder Evaluation Hx of Sleep Apnea: No Do you snore loudly (louder than talking or can be heard through closed doors)?: No
--- NOTE | 2024-07-21 08:00 | PCM.CR.HP2 ---
CR - History & Physical General Arrival date:: 07/21/24 Arrival time:: 08:01 Date of Referral:: 07/18/24 Date of CR Evaluation:: 07/21/24 Referring Physician: Dr. Norris Primary Diagnosis: PCI with stent History of Present Cardiac Event Onset Date PTCA or coronary stenting:: Yes (07/18/24 onset) Medications Ambulatory Orders ?Medication ?Instructions ?Recorded epinephrine 0.3 mg/0.3 mL 0.3 mg (0.3 mL) IM X1 #2 syringes 12/31/16 injection, auto-injector ramipril 10 mg capsule 20 mg PO DAILY 12/31/16 amlodipine 10 mg tablet (Norvasc) 10 mg PO DAILY 04/17/22 aspirin 81 mg tablet,delayed 81 mg PO DAILY 04/17/22 release (Adult Low Dose Aspirin) latanoprost 0.005 % eye drops 1 drp ophthalmic (eye) DAILY 04/17/22 omega 8-uus-dsc-fish oil 300 1 cap PO DAILY 04/17/22 mg-1,000 mg capsule (Fish Oil) psyllium husk 0.4 gram capsule 0.8 g PO DAILY 04/17/22 (Daily Fiber) hydrochlorothiazide 12.5 mg tablet 12.5 mg PO DAILY 05/21/22 multivitamin 1 tab PO DAILY 07/06/24 timolol maleate 0.5 % eye drops drp ophthalmic (eye) control eye 07/06/24 pressure atorvastatin 40 mg tablet 40 mg PO DAILY control colesterol 07/18/24 #60 tabs clopidogrel 75 mg tablet (Plavix) 75 mg PO QDAY #90 tabs 07/18/24 Allergies Allergies hornet venom Allergy (Verified 07/06/24 10:01) Swelling Has Epipen venom-honey bee Allergy (Verified 07/06/24 10:01) Swelling Has Epipen Sleep Disorder Evaluation Hx of Sleep Apnea: No Do you snore loudly (louder than talking or can be heard through closed doors)?: No Do you often feel tired/ fatigued/ sleepy during daytime?: No Has anyone observed you stop breathing during sleep?: No History of Hypertension (for STOP score): Yes STOP Results: Negative Advanced Directives Advanced Directives Power of 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: Yes Living Will: Yes Advance Directives Information Provided: Yes Advance Directives on File: No DNR Order?:: No Past Medical History Covid-19 Screening Physicial Symptoms Other Clinical Concerns Exposure Risk Pertinent Comorbidities 65 years or older:: Yes Has a serious heart condition:: Yes Past Medical Illness Past Medical History Arteriosclerotic cardiovascular disease (ASCVD) I25.10 Elevated coronary artery calcium score R93.1 Hyperlipidemia, unspecified E78.5 Benign essential HTN I10 Past Surgical History Past Surgical History (Updated 07/18/24 @ 17:01 by Helga Cuellar) Stented coronary artery (07/18/24) Z95.5 2.75 X [address] MANJIT to RCA History of removal of skin mole Z98.890, Z87.2 History of right knee surgery Z98.890 History of eye surgery Z98.890 History of colonoscopy Z98.890 Family History Summary Family History Brother Renal failure Leukemia Brother Throat cancer Father Lung cancer Mother Heart disease History of coronary artery bypass graft x 3, Onset Age: 51 Social History Smoking History Smoking Status: Never smoker Alcohol Use Alcohol Usage: Yes Substance Abuse Hx Substance Use: No Occupation Occupation (List type of work in comments):: Retired Social Environment Status Marital Status: Current Living Arrangements Living Environment:: Spouse Children How many children do you have?: 2 Do any of your children live nearby?: Yes Safety Do you feel safe in your surroundings?: Yes Assistance Do you need any assistance at home?: no Review of Systems Review of Systems Hints Review of Present Symptoms: Reports Appetite - Normal, Appetite - Special Diet and Sleep - Normal; Denies Shortness of Breath at Rest, Shortness of Breath with Exertion, PVD, Operative Discomfort, Angina, Wound Healing, Dizziness/Lightheadedness, Fatigue, Heart Arrhythmia/Irregularities or Sexual Changes Pain Is Patient Pain Free?: Yes Risk Factor Assessment Chief Complaint Chief Complaint: PCI with stent Vital Signs Pulse Ox: 100 Blood Pressure: 142/70 Pulse Pulse Rate: 55 Hypertension How long have you been treated?: 20 years Blood Pressure Sitting - Right Arm: 142/70 Obesity Height: 5 ft 8 in Weight:: 144 lb Weight in Pounds: 144.0 lbs Body Mass Index (BMI): 21.9 Nutritional Referral for Obesity: No Physical Inactivity Physical Inactivity: Reg Exercise 30 min/day Risk Stratification Risk Guidelines: Lowest Risk: Risk Factor for Smoking, Moderate Risk: Risk Factor for Diabetes, Risk Factor for Obesity, Risk Factor for Sedentary Lifestyle and Risk Factor for Depression and Highest Risk: Risk Factor for Dyslipidemia and Risk Factor for Hypertension For Smoking Smoking Risk Guidelines For Dyslipidemia Dyslipidemia Risk Guidelines For Diabetes Mellitus Diabetes Risk Guidelines For Obesity/Overweight Obesity/Overweight Risk Guidelines For Hypertension Hypertension Risk Guidelines For Sedentary Lifestyle Sedentary Lifestyle Risk Guidelines For Depression Depression Risk Guidelines Family History Family History Brother Renal failure Leukemia Brother Throat cancer Father Lung cancer Mother Heart disease History of coronary artery bypass graft x 3, Onset Age: 51 Motivation Motivation to Participate On a scale of 1 to 10, how prepared are you to commit to attending program?: 8 What do you see as barriers to successfully being able to complete the program?: nothing What do you see as the benefits of succesfully completing the program? In other words, what do you hope to get out of participating in the program?: knowledge Are there issues you are dealing with that will interfere with completing the program?: no Do you have a spouse or signficant other, family or friends who will help support you to complete the program?: yes
--- NOTE | 2024-07-21 08:06 | CR.ITP_ITS ---
Diagnosis General Information Admitting Diagnosis: PCI with stent Personal Learning Style:: Audio/Visual Barriers to Learning: No Barriers Stage of change r/t lifestyle modifications:: Contemplation Gave educational material for:: Treating Heart Disease, How The Heart Works, What it means to have Heart Disease, How Coronary Artery Disease is Diagnosed, Heart Procedures, What Heart Medications Do, Risk Factors & Modifications, Living an Active Life, Nutrition, Emotions & Heart Disease, Stress Management & Relaxation and Sleep Disorders & Heart Disease Education/Goals Cardiac Rehabilitation Goals Personal Goals: Initial Assessment: Improve management of stress and emotions, Improve knowledge of cardiac disease, Improve diet and eating habits (eat healthier) and Control risk factors (learn risk factor modification) Scale for measuring improvement of personal goals Diagnosis & Disease Process Outcomes/Goals: Pt IDs own risk factors & lifestyle modifications by Session 10, Verbalizes symptoms of angina & response by session 3., Pt independently manages and Other Additional Outcomes/Goals: Plan/Interventions: Assist Pt to ID & engage in lifestyle modification to reduce CVD risk, Instruct on individual risk factors, Review symptoms of angina & emergency actions, Review secondary diagnosis & identify educational needs. and Other see comment 30 day Reassessments:: Not Met 30 day Reassessments:: Not Met 30 day Reassessments:: Not Met 30 day Reassessments:: Not Met Final Reassessments:: Not Met Safety Referral to Physical Therapy: No Referral to [facility] Case Management: No Fall Risk Assessed:: Yes Assistive Devices:: None Exercise - Initial Assessment Visit Date of Eval: 07/21/24 (initial eval) Mets: Pre-: >3 METS for 30 minutes by discharge, >5 METS for 30 minutes by discharge, >7 METS for 30 minutes by discharge and Unable to meet goal due to: (see comment below) Physician Prescribed Exercise Modalities: Treadmill, Rower, Schwinn Airdyne AD-7, SciFit Stepper, SciFit Pro- II Ergometer and SciFit Lateral [place] Frequency: 3x/week for 12 weeks [36 sessions] Intensity: 60-80% of age predicted maximum heart rate reserve Duration: 30 - 45 minutes Current METSs:: 3 Target Heart Rate:: 90-113 Resting Blood Pressure: 142/70 EKG Type: SB Outcomes & Goals Goals:: Verbalizes understanding of THR, RPE & goal METS by session 6, Documents in home exercise log/reports 30 min aerobic 5 day/wk by DC, Demonstrates accurate pulse taking by DC and Other additional outcome/goals: see below Intervention & Plan Exercise Program Goals: Instruct on personal THR & RPE, Instruct on MET level & personal MET goal, Show patient to take own pulse /validate performance until accurate, Instruct on home exercise and Other additional plan/int Physical Activity Home Exercise Physical Activity - Home Exercise: Safe Exercise, Warm-up, Self-monitoring, Cool-Down, Home Exercise > 30 min Daily and Sitting Time <3 hours/daily Outcomes & Goals Outcomes/Goals: Demonstrates correct Warm-up/exercise Cool-Down (S3) if = 2.5 METs, Verbalizes symptoms of exercise intolerance by Session 3 (S3), Demonstrate safe equipment use (S3) & follows exercise prescrition (6) and Other: See below Intervention & Plan Plan/Intervention: Instruct warm-up & cool-down if exercising at > 2 METs, Instruct on symptoms of exercise intolerance & actions to take, Instruct & monitor on saf, Assess intial functional capacity & safety risk and Other See below Nutrition - Initial Assessment Program Goals Nutrition Program Goals Patient has diagnosis of Hyperlipidemia (ICD E78)?: Yes Visit Date of Eval: 07/21/24 (initial eval ) Cholesterol/Lipids (Other Core Measures) Determine presence & major risk factors that modify LDL goal: Hypertension or hypertensive medication, Low HDL cholesterol <40 mg/dL*, Family history of premature CHD in Male < 55 years: female <65 yearsFa and Age men > 45 years; women >/= 55 years Outcomes/Goals: Pt IDs own risk factors & lifestyle modifications by Session 10, Verbalizes symptoms of angina & response by session 3., Pt independently manages and Other Additional Outcomes/Goals: Intervention/Plan: Advocate for lipid panel cholesterol medication if applicable, Instruct on personal lipid levels & lipid goals/NCEP guidelines, Instruct on cholesterol and Other additional plan/int Referral to dietitian:: No Diabetes (Other Core Measures) Diabetes Type: Not Applicable Weight Mgt (Other Care) Height: 5 ft 8 in Weight:: 144 lb BMI: 21.9 Diagnosis Overweight/Obesity BMI> 30% ICD-10 E66: No Diagnosis High BMI/Morbid Obesity BMI> 35% ICD-10 Z68: No Outcomes/Goals: Pt sets, maintains & shows weight loss goal & trend during rehab and Other additional outcomes/goals Intervention/Plan: Instruct on ideal BMI & set weight loss goal w/patient, Assist pt to ID & incorporate diet changes for weight loss by S9, Refer to Structured Weight Loss program as appropriate, Encourage goal of using 250- 300dcal per session for weight loss and Other additional plan/interventions Healthy Eating Habits Will attend diet classes:: Yes Outcomes/Goals:: Consume diet rich in vegs,fruits,whole grain/high fiber,fish,lean meat, Limit sat/trans fats,cholesterol & added salts & sugars and Other additional outcome/goals: Intervention/Plan:: Assess current eating habits and Other Additional plan/interventions Education Gave educational materials for:: Signs & symptoms of hypoglycemia, Signs & symptoms of hyperglycemia, Relate diabetes to coronary artery disease and Healthy eating Core - Initial Assessment Visit Date of Eval: 07/21/24 (initial eval ) Medication Compliance Preventative Medication(s):: Aspirin, Clopidogrel/P2Y12 inhibit and Statin/lipid H/O mental health issues: depression, anxiety, or addiction?: No Doesn?t believe in the benefits of treatment?: No Believes medications are unnecessary or harmful?: No Has a concern about medication side effects?: No Expresses concern over the cost of medications?: No Outcomes/Goals: Verbalizes medications,desired effect & common side effects @ DC, Pt self-reports following medication regimen, Keeps card in wallet w/medications listed by DC and Other additional outcome/goals: Interventions/plans: Instruct on medication effects & side effects, Review medication list w/patient every two weeks, Instruct importance of taking meds as ordered & assist problem solving and Other additional Tobacco Use Tobacco Use: Non-smoker Hypertension Hypertension Diagnosis:: Hypertension ICD-10 I10 Resting Blood Pressure:: 142/70 [place] [employer] Hypertension Guidelines Outcomes/Goals: Able to verbalize/achieve optimal blood pressure <130/80, Incorporates diet changes & exercise for blood pressure control by DC and Other additional outcomes/goals Interventions/plan: Instruct on optimal blood pressure, hypertension & medications, Instruct on effects of sodium, alcohol, stress, exercise &hypertension and Other additional plan/interventions Tobacco Cessation Referral Smoking Cessation Referral:: No Individual Education/Counseling:: No Education Schedule Given:: Yes Psychosocial - Initial Assess VIsit Date of Eval: 07/21/24 (initial eval) History of previous Mental disease:: No Target Goals Target Goals Psychosocial Test Tool Used:: [employer] QOL Cardiac and PHQ-9 Questionnaire phq-9 Severity Referral to Behavioral Health PS - Interventions: Yes: Attend Stress Management Classes Outcomes/Goals: See list Psychosocial Outcomes/Goals:: ID's personal stressors & 2 strategies to manage stress by discharge and Other Additional outcome/goals: Intervention/Plan: See List Interventions/Plan:: Assess stressors,coping strategies & signs of derpression on admission, Instruct/assist pt to develop coping & personal stress Mgt strategies, Refer to Behavioral Health if appropriate, Refer to Physician if appropriate, Instruct patient to recognize signs & symptoms of depression, In struct patient to recog and Other additional plan/intervention Patient Health Questionnaire PHQ-9 Screening Initial Assessment: 1. Little interest or pleasure in doing things: Not at all 2. Feeling down, depressed, or hopeless: Not at all 3. Trouble falling or staying asleep, or sleeping too much: Not at all 4. Feeling tired or having little energy: Not at all 5. Poor appetite or overeating: Not at all 6. Feeling bad about yourself -- or that you are a failure or have let yourself or your family down: Not at all 7. Trouble concentrating on things, such as reading the newspaper or watching television: Not at all 8. Moving or speaking so slowly that other people could have noticed. Or the opposite - being so fidgety or restless that you have been moving around a lot more than usual: Not at all 9. Thoughts that you would be better off , or of hurting yourself in some way: Not at all How difficult have these problems made it for you to do your work, take care of things at home, or get along with other people?: Not difficult at all Total Score: 0 STEFAN-Q SV Test Statements CAD is a disease of the arteries in the heart: False Examples of risk factors for heart disease: True Angina is chest pain or discomfort: I Don't Know The benefits of resistance training include: True Eating more meat and dairy products: False Anti-platelet medications such as aspirin are important: False The only effective way to manage stress: False An exercise warm-up slowly increases heart rate: True Prepared, processed foods usually have high sodium: True Depression is common after a heart attack: True The statin medications lower cholesterol: True To control blood pressure, lower the amount of sodium: True If someone gets chest discomfort during walking: False Transfats are partially hydrogenated vegetable oils: True Sleep apnea that is not treated increases the risk: False To control cholesterol, one should become a vegetarian: False Someone knows if he/she is exercising at the right level: True Diabetes cannot be prevented with exercise & health eating: I Don't Know Stress is a large risk for heart attack: True A diet that can help lower blood pressure is rich in: True Total Score Total Correct Responses: 17 Self-Efficacy 6-Item Scale Initial Assessment: We would like to know how confident you are in doing certain activities. Please select your confidence level for: Fatigue Select Number: 8 Physical Discomfort or Pain Select Number: 7 Emotional Distress Select Number: 9 Other Symptoms or Health Problems Select Number: 7 Different Tasks and Activities Select Number: 8 Medication Select Number: 8 Total Score:: 7 Nutrition Survey Nutrition Survey Instructions Scoring Instructions Nutrition Survey Initial: Have you lost >10 lbs over the past 2 months without trying?: No Are you following a special diet at home for diabetes, low fat, or low salt?: No Are you interested in meeting with a dietitian for help understanding your diet?: Yes Do you eat less than 3 meals a day?: No Do you eat fatty meats (boss, sausage, ribs, etc), fried foods, desserts, large amounts of salad dressings, margarine, butter, or cheese most days?: No Do you have food allergies? [Enter types in comment field]: No Do you eat in restaurants more than 3 times a week?: No Do you season food with salt, seasoning salt, or garlic salt?: No Do you used canned, boxed, frozen meals, or soups, seasoning packets?: Yes Total Score:: 2 Exercise - 30-day Assessment Physician Prescribed Exercise Modalities: Treadmill, Rower, Schwinn Airdyne AD-7, SciFit Stepper, SciFit Pro- II Ergometer and SciFit Lateral Wind Turbine Engineer Exercise - 60-day Assessment Physician Prescribed Exercise Modalities: Treadmill, Rower, Schwinn Airdyne AD-7, SciFit Stepper, SciFit Pro- II Ergometer and SciFit Lateral [place] Exercise - 90-day Assessment Physician Prescribed Exercise Modalities: Treadmill, Rower, Schwinn Airdyne AD-7, SciFit Stepper, SciFit Pro- II Ergometer and SciFit Lateral Wind Turbine Engineer Exercise - Final/Discharge Physician Prescribed Exercise Modalities: Treadmill, Rower, Cara Airdyne AD-7, SciFit Stepper, SciFit Pro- II Ergometer and SciFit Lateral [place] Frequency: 3x/week for 12 weeks [36 sessions] Intensity: 60-80% of age predicted maximum heart rate reserve Current METSs:: 3 Target Heart Rate:: 90-113 Nutrition - 30-Day Assessment Weight Mgt (Other Care) Height: 5 ft 8 in Weight:: 144 lb BMI: 21.9 Nutrition - 60-Day Assessment Weight Mgt (Other Care) Height: 5 ft 8 in Weight:: 144 lb BMI: 21.9 Core - Final Assessment Hypertension Resting Blood Pressure:: 142/70 [place] [employer] Hypertension Guidelines Core - 60-Day Assessment Hypertension Resting Blood Pressure:: 142/70 [place] [employer] Hypertension Guidelines Psychosocial - 30-Day Assess Target Goals Target Goals Referral to Behavioral Health PS - Interventions: Yes: Attend Stress Management Classes Psychosocial - 60-Day Assess Target Goals Target Goals Referral to Behavioral Health PS - Interventions: Yes: Attend Stress Management Classes Psychosocial - 90-Day Assess Target Goals Target Goals Referral to Behavioral Health PS - Interventions: Yes: Attend Stress Management Classes Psychosocial - Final Assessmen Target Goals Target Goals Referral to Behavioral Health PS - Interventions: Yes: Attend Stress Management Classes Nutrition - 90-Day Assessment Weight Mgt (Other Care) Height: 5 ft 8 in Weight:: 144 lb BMI: 21.9 Nutrition - Final Assessment Program Goals Patient has diagnosis of Hyperlipidemia (ICD E78)?: Yes Weight Mgt (Other Care) Height: 5 ft 8 in Weight:: 144 lb BMI: 21.9
[2024-07-21 08:20] VITALS: BP 142/70; PULSE 55; O2SAT 100; BMI 21.9
[2024-07-21 08:57] VITALS: BP 142/70; BMI 21.9
== END | disposition home or self-care (01) ==
PROVIDERS: PCP Family Medicine; Referring Provider Internal Medicine Cardiovascular Disease; Visit Provider Internal Medicine Cardiovascular Disease
DX: I25.10 Atherosclerotic heart disease of native coronary artery without angina pectoris (principal); E78.5 Hyperlipidemia, unspecified; I10 Essential (primary) hypertension; Z95.5 Presence of coronary angioplasty implant and graft; Z79.82 Long term (current) use of aspirin; Z79.02 Long term (current) use of antithrombotics/antiplatelets; Z79.899 Other long term (current) drug therapy

== ENCOUNTER 2024-07-25 08:03 | Outpatient (RCR) | payer MEDICARE, OTHER, SELFPAY ==
[2024-07-21 08:57] VITALS: BMI 21.9
== END 2024-08-05 23:59 ==
LOC: CR 08:03
PROVIDERS: PCP Family Medicine; Referring Provider Internal Medicine Cardiovascular Disease; Visit Provider Internal Medicine Cardiovascular Disease
DX: Z95.5 Presence of coronary angioplasty implant and graft (principal); I25.10 Atherosclerotic heart disease of native coronary artery without angina pectoris; R93.1 Abnormal findings on diagnostic imaging of heart and coronary circulation; E78.5 Hyperlipidemia, unspecified; I10 Essential (primary) hypertension
CPT/HCPCS: 93798

== ENCOUNTER 2024-09-05 08:00 | Outpatient (RCR) | payer MEDICARE, OTHER, SELFPAY ==
[2024-07-21 08:57] VITALS: BMI 21.9
--- NOTE | 2024-08-18 08:02 | CR.ITP_ITS ---
Exercise - Initial Assessment Visit Session #:: 5 Physician Prescribed Exercise Modalities: Treadmill, Schwinn Airdyne AD-7 and SciFit Stepper Nutrition - Initial Assessment Weight Mgt (Other Care) Height: 5 ft 8 in Weight:: 143 lb BMI: 21.7 Psychosocial - Initial Assess Target Goals Target Goals Referral to Behavioral Health PS - Interventions: Yes: Attend Stress Management Classes Patient Health Questionnaire PHQ-9 Screening 30-Day Re-eval Assessment: 1. Little interest or pleasure in doing things: Not at all 2. Feeling down, depressed, or hopeless: Not at all 3. Trouble falling or staying asleep, or sleeping too much: Not at all 4. Feeling tired or having little energy: Not at all 5. Poor appetite or overeating: Not at all 6. Feeling bad about yourself -- or that you are a failure or have let yourself or your family down: Not at all 7. Trouble concentrating on things, such as reading the newspaper or watching television: Not at all 8. Moving or speaking so slowly that other people could have noticed. Or the opposite - being so fidgety or restless that you have been moving around a lot more than usual: Not at all 9. Thoughts that you would be better off , or of hurting yourself in some way: Not at all How difficult have these problems made it for you to do your work, take care of things at home, or get along with other people?: Not difficult at all Total Score: 0 Self-Efficacy 6-Item Scale 30-Day Re-eval Assessment: We would like to know how confident you are in doing certain activities. Please select your confidence level for: Fatigue Select Number: 8 Physical Discomfort or Pain Select Number: 7 Emotional Distress Select Number: 9 Other Symptoms or Health Problems Select Number: 7 Different Tasks and Activities Select Number: 8 Medication Select Number: 8 Total Score:: 7 Nutrition Survey Nutrition Survey Instructions Scoring Instructions Exercise - 30-day Assessment Visit Date of Eval: 08/18/24 Session #:: 5 Physician Prescribed Exercise Modalities: Treadmill, Schwinn Airdyne AD-7 and SciFit Stepper Frequency: 3x/week for 12 weeks [36 sessions] Intensity: 60-80% of age predicted maximum heart rate reserve Duration: 30 - 45 minutes Current METSs:: 6.4 Target Heart Rate:: 90-113 Current RPE:: 10-11 Maximum Excercise HR:: 87 Resting Blood Pressure: 124/48 Maximum Exercise Blood Pressure: 130/64 EKG Type: NSR-STrare PVC, PAC Outcomes & Goals Goals:: Verbalizes understanding of THR, RPE & goal METS by session 6, Documents in home exercise log/reports 30 min aerobic 5 day/wk by DC, Demonstrates accurate pulse taking by DC and Other additional outcome/goals: see below Intervention & Plan Exercise Program Goals: Instruct on personal THR & RPE, Instruct on MET level & personal MET goal, Show patient to take own pulse /validate performance until accurate, Instruct on home exercise and Other additional plan/int Physical Activity Home Exercise Physical Activity - Home Exercise: Safe Exercise, Warm-up, Self-monitoring, Cool-Down, Home Exercise > 30 min Daily and Sitting Time <3 hours/daily Outcomes & Goals Outcomes/Goals: Demonstrates correct Warm-up/exercise Cool-Down (S3) if = 2.5 METs, Verbalizes symptoms of exercise intolerance by Session 3 (S3), Demonstrate safe equipment use (S3) & follows exercise prescrition (6) and Other: See below Intervention & Plan Plan/Intervention: Instruct warm-up & cool-down if exercising at > 2 METs, Instruct on symptoms of exercise intolerance & actions to take, Instruct & monitor on saf, Assess intial functional capacity & safety risk and Other See below 30-day Reassessments 30 day Reassessments:: Progressing Reassessment Notes & Comments:: RPE explained to pt. Pt demonstrates understand ing. Exercise - 60-day Assessment Physician Prescribed Exercise Modalities: Treadmill, Schwinn Airdyne AD-7 and SciFit Stepper Exercise - 90-day Assessment Physician Prescribed Exercise Modalities: Treadmill, Schwinn Airdyne AD-7 and SciFit Stepper Exercise - Final/Discharge Physician Prescribed Exercise Modalities: Treadmill, Schwinn Airdyne AD-7 and SciFit Stepper Nutrition - 30-Day Assessment Program Goals Nutrition Program Goals Patient has diagnosis of Hyperlipidemia (ICD E78)?: Yes Visit Date of Eval: 08/18/24 Session #:: 5 Cholesterol/Lipids (Other Core Measures) Determine presence & major risk factors that modify LDL goal: Hypertension or hypertensive medication, Low HDL cholesterol <40 mg/dL*, Family history of premature CHD in Male < 55 years: female <65 yearsFa and Age men > 45 years; women >/= 55 years Outcomes/Goals: Pt IDs own risk factors & lifestyle modifications by Session 10, Verbalizes symptoms of angina & response by session 3., Pt independently manages and Other Additional Outcomes/Goals: Intervention/Plan: Advocate for lipid panel cholesterol medication if applicab le, Instruct on personal lipid levels & lipid goals/NCEP guidelines, Instruct on cholesterol and Other additional plan/int Referral to dietitian:: No Diabetes (Other Core Measures) Diabetes Type: Not Applicable Weight Mgt (Other Care) Height: 5 ft 8 in Weight:: 143 lb BMI: 21.7 Diagnosis Overweight/Obesity BMI> 30% ICD-10 E66: No Diagnosis High BMI/Morbid Obesity BMI> 35% ICD-10 Z68: No Outcomes/Goals: Pt sets, maintains & shows weight loss goal & trend during rehab and Other additional outcomes/goals Intervention/Plan: Instruct on ideal BMI & set weight loss goal w/patient, Assist pt to ID & incorporate diet changes for weight loss by S9, Refer to Structured Weight Loss program as appropriate, Encourage goal of using 250-30 0dcal per session for weight loss and Other additional plan/interventions Healthy Eating Habits Will attend diet classes:: Yes Outcomes/Goals:: Consume diet rich in vegs,fruits,whole grain/high fiber,fish,lean meat, Limit sat/trans fats,cholesterol & added salts & sugars and Other additional outcome/goals: Intervention/Plan:: Assess current eating habits and Other Additional plan/interventions 30-day Reassessments:: Progressing Reassessment Notes & Comments:: Pt is scheduled to attend nutrition class. Low sodium heart healthy diet encouraged. Education Gave educational materials for:: Signs & symptoms of hypoglycemia, Signs & symptoms of hyperglycemia, Relate diabetes to coronary artery disease and Healthy eating Nutrition - 60-Day Assessment Weight Mgt (Other Care) Height: 5 ft 8 in Weight:: 143 lb BMI: 21.7 Core - 30-Day Assessment Visit Date of Eval: 08/18/24 Session #:: 5 Medication Compliance Preventative Medication(s):: Aspirin, Clopidogrel/P2Y12 inhibit and Statin/lipid H/O mental health issues: depression, anxiety, or addiction?: No Doesn?t believe in the benefits of treatment?: No Believes medications are unnecessary or harmful?: No Has a concern about medication side effects?: No Outcomes/Goals: Verbalizes medications,desired effect & common side effects @ DC, Pt self-reports following medication regimen, Keeps card in wallet w/medications listed by DC and Other additional outcome/goals: Interventions/plans: Instruct on medication effects & side effects, Review medication list w/patient every two weeks, Instruct importance of taking meds as ordered & assist problem solving and Other additional Tobacco Use Tobacco Use: Non-smoker Hypertension Hypertension Diagnosis:: Hypertension ICD-10 I10 Resting Blood Pressure:: 124/48 [place] [employer] Hypertension Guidelines Peak Exercise Blood Pressure:: 130/64 Outcomes/Goals: Able to verbalize/achieve optimal blood pressure <130/80, Incorporates diet changes & exercise for blood pressure control by DC and Other additional outcomes/goals Interventions/plan: Instruct on optimal blood pressure, hypertension & medications, Instruct on effects of sodium, alcohol, stress, exercise &hypertension and Other additional plan/interventions 30 day Reassessments:: Progressing Reassessment Notes & Comments:: BP's are slightly elevated. Low sodium diet encouraged to help lower BP. Tobacco Cessation Referral Smoking Cessation Referral:: No Individual Education/Counseling:: No Education Schedule Given:: Yes Psychosocial - 30-Day Assess VIsit Date of Eval: 08/18/24 Session #:: 5 History of previous Mental disease:: No Target Goals Target Goals Psychosocial Test Tool Used:: [employer] QOL Cardiac and PHQ-9 Questionnaire phq-9 Severity Referral to Behavioral Health PS - Interventions: Yes: Attend Stress Management Classes Outcomes/Goals: See list Psychosocial Outcomes/Goals:: ID's personal stressors & 2 strategies to manage stress by discharge and Other Additional outcome/goals: Intervention/Plan: See List Interventions/Plan:: Assess stressors,coping strategies & signs of derpression on admission, Instruct/assist pt to develop coping & personal stress Mgt strategies, Refer to Behavioral Health if appropriate, Refer to Physician if a ppropriate, Instruct patient to recognize signs & symptoms of depression, Instruct patient to recog and Other additional plan/intervention 30-day Reassessments: 30 day Reassessments:: Met Reassessment Notes & Comments:: Pt denies any psychosocial issues. Psychosocial - 60-Day Assess Target Goals Target Goals Referral to Behavioral Health PS - Interventions: Yes: Attend Stress Management Classes Outcomes/Goals: See list Psychosocial Outcomes/Goals:: ID's personal stressors & 2 strategies to manage stress by discharge and Other Additional outcome/goals: Psychosocial - 90-Day Assess Target Goals Target Goals Referral to Behavioral Health PS - Interventions: Yes: Attend Stress Management Classes Psychosocial - Final Assessmen Target Goals Target Goals Referral to Behavioral Health PS - Interventions: Yes: Attend Stress Management Classes Nutrition - 90-Day Assessment Weight Mgt (Other Care) Height: 5 ft 8 in Weight:: 143 lb BMI: 21.7 Nutrition - Final Assessment Weight Mgt (Other Care) Height: 5 ft 8 in Weight:: 143 lb BMI: 21.7
[2024-08-18 08:10] VITALS: BP 124/48
[2024-08-18 08:16] VITALS: BP 124/48; BMI 21.7
== END 2024-09-05 23:59 ==
LOC: CR 08:00
PROVIDERS: PCP Family Medicine; Referring Provider Internal Medicine Cardiovascular Disease; Visit Provider Internal Medicine Cardiovascular Disease
DX: Z95.5 Presence of coronary angioplasty implant and graft (principal); I25.10 Atherosclerotic heart disease of native coronary artery without angina pectoris; R93.1 Abnormal findings on diagnostic imaging of heart and coronary circulation; E78.5 Hyperlipidemia, unspecified; I10 Essential (primary) hypertension
CPT/HCPCS: 93798

== ENCOUNTER 2024-10-05 08:00 | Outpatient (RCR) | payer MEDICARE, OTHER, SELFPAY ==
[2024-08-18 08:16] VITALS: BMI 21.7
[2024-09-06 00:49] VITALS: BP 124/48
--- NOTE | 2024-09-16 08:05 | PCM.CR.ITP ---
Exercise - Initial Assessment Physician Prescribed Exercise Modalities: Treadmill, Rower, Chrisinn Airdyne AD-7, SciFit Stepper, SciFit Pro-II Ergometer and SciFit Lateral Firepot Operator And Tender Nutrition - Initial Assessment Weight Mgt (Other Care) Height: 5 ft 8 in Weight:: 142 lb BMI: 21.6 Core - Initial Assessment Hypertension Resting Blood Pressure:: 104/54 [place] [employer] Hypertension Guidelines Psychosocial - Initial Assess Target Goals Target Goals Referral to Behavioral Health PS - Interventions: Yes: Attend Stress Management Classes and No: Referral to Behavioral Health if PHQ-9 score >9:, No: Referral to [facility] and No: Referral to Physician if PHQ-9 if score is 5-9: Patient Health Questionnaire PHQ-9 Screening 60-Day Re-eval Assessment: 1. Little interest or pleasure in doing things: Not at all 2. Feeling down, depressed, or hopeless: Not at all 3. Trouble falling or staying asleep, or sleeping too much: Not at all 4. Feeling tired or having little energy: Not at all 5. Poor appetite or overeating: Not at all 6. Feeling bad about yourself -- or that you are a failure or have let yourself or your family down: Not at all 7. Trouble concentrating on things, such as reading the newspaper or watching television: Not at all 8. Moving or speaking so slowly that other people could have noticed. Or the opposite - being so fidgety or restless that you have been moving around a lot more than usual: Not at all 9. Thoughts that you would be better off , or of hurting yourself in some way: Not at all How difficult have these problems made it for you to do your work, take care of things at home, or get along with other people?: Not difficult at all Total Score: 0 Self-Efficacy 6-Item Scale 60-Day Re-eval Assessment: We would like to know how confident you are in doing certain activities. Please select your confidence level for: Fatigue Select Number: 8 Physical Discomfort or Pain Select Number: 7 Emotional Distress Select Number: 9 Other Symptoms or Health Problems Select Number: 7 Different Tasks and Activities Select Number: 8 Medication Select Number: 8 Total Score:: 7 Nutrition Survey Nutrition Survey Instructions Scoring Instructions Exercise - 30-day Assessment Physician Prescribed Exercise Modalities: Treadmill, Rower, Schwinn Airdyne AD-7, SciFit Stepper, SciFit Pro-II Ergometer and SciFit Lateral Firepot Operator And Tender Exercise - 60-day Assessment Visit Date of Eval: 09/16/24 Session #:: 22 Physician Prescribed Exercise Modalities: Treadmill, Rower, Schwinn Airdyne AD-7, SciFit Stepper, SciFit Pro-II Ergometer and SciFit Lateral [place] Frequency: 3x/week for 12 weeks [36 sessions] Intensity: 60-80% of age predicted maximum heart rate reserve Duration: 30 - 45 minutes METs - Progression 0.5-1.0 weekly:: 0.5-1.0 Current METSs:: 6-7 Target Heart Rate:: 90-113 Target RPE 11-14 Current RPE:: 11-14 Current RPE:: 12 Maximum Excercise HR:: 96 Resting Blood Pressure: 136/54 Maximum Exercise Blood Pressure: 156/64 EKG Type: NSR-ST with PVCs, short periods of bigeminy, couplets, rare PAC Current Physical Activity or Exercising minutes: 35 Outcomes & Goals Goals:: Verbalizes understanding of THR, RPE & goal METS by session 6, Documents in home exercise log/reports 30 min aerobic 5 day/wk by DC and Demonstrates accurate pulse taking by DC Intervention & Plan Exercise Program Goals: Instruct on personal THR & RPE, Instruct on MET level & personal MET goal, Show patient to take own pulse /validate performance until accurate and Instruct on home exercise Exercise - 90-day Assessment Physician Prescribed Exercise Modalities: Treadmill, Rower, Schwinn Airdyne AD-7, SciFit Stepper, SciFit Pro-II Ergometer and SciFit Lateral Firepot Operator And Tender Exercise - Final/Discharge Physician Prescribed Exercise Modalities: Treadmill, Rower, Schwinn Airdyne AD-7, SciFit Stepper, SciFit Pro-II Ergometer and SciFit Lateral [place] Nutrition - 30-Day Assessment Weight Mgt (Other Care) Height: 5 ft 8 in Weight:: 142 lb BMI: 21.6 Nutrition - 60-Day Assessment Program Goals Nutrition Program Goals Patient has diagnosis of Hyperlipidemia (ICD E78)?: Yes Visit Date of Eval: 09/16/24 Session #:: 22 Cholesterol/Lipids (Other Core Measures) Total Triglycerides (mg/dL): 59 Total Cholesterol: 171 LDL Cholesterol (mg/dL): 71 HDL Cholesterol (mg/dL): 88 Lipid Medication: atorvastatin 40mg QD Determine presence & major risk factors that modify LDL goal: Hypertension or hypertensive medication and Age men > 45 years; women >/= 55 years Outcomes/Goals: Pt IDs own risk factors & lifestyle modifications by Session 10, Verbalizes symptoms of angina & response by session 3. and Pt independently manages Intervention/Plan: Advocate for lipid panel cholesterol medication if applicable, Instruct on personal lipid levels & lipid goals/NCEP guidelines and Instruct on cholesterol Referral to dietitian:: No 30-day Reassessments:: Met Reassessment Notes & Comments:: PT taking prescribed medication as prescribed Diabetes (Other Core Measures) Diabetes Type: Not Applicable Weight Mgt (Other Care) Height: 5 ft 8 in Weight:: 142 lb BMI: 21.6 Diagnosis Overweight/Obesity BMI> 30% ICD-10 E66: No Diagnosis High BMI/Morbid Obesity BMI> 35% ICD-10 Z68: No Outcomes/Goals: Pt sets, maintains & shows weight loss goal & trend during rehab Intervention/Plan: Instruct on ideal BMI & set weight loss goal w/patient and Assist pt to ID & incorporate diet changes for weight loss by S9 30 day Reassessments:: Met Reassessment Notes & Comments:: Pt at ideal BMI currently, instruct on healthy eating patterns and diet changes for weight loss if needed Healthy Eating Habits Will attend diet classes:: Yes Outcomes/Goals:: Consume diet rich in vegs,fruits,whole grain/high fiber,fish,lean meat and Limit sat/trans fats,cholesterol & added salts & sugars Intervention/Plan:: Assess current eating habits 30-day Reassessments:: Met Reassessment Notes & Comments:: Pt attending and participating in diet and healthy living classes Education Gave educational materials for:: Signs & symptoms of hypoglycemia, Signs & symptoms of hyperglycemia, Relate diabetes to coronary artery disease and Healthy eating Core - Final Assessment Hypertension Resting Blood Pressure:: 104/54 [place] [employer] Hypertension Guidelines Core - 60-Day Assessment Visit Date of Eval: 09/16/24 Session #:: 22 Medication Compliance Preventative Medication(s):: SOPHIA inhibitor, Clopidogrel/P2Y12 inhibit and Statin/lipid H/O mental health issues: depression, anxiety, or addiction?: No Doesn?t believe in the benefits of treatment?: No Believes medications are unnecessary or harmful?: No Has a concern about medication side effects?: No Expresses concern over the cost of medications?: No Outcomes/Goals: Verbalizes medications,desired effect & common side effects @ DC, Pt self-reports following medication regimen and Keeps card in wallet w/medications listed by DC Interventions/plans: Instruct on medication effects & side effects, Review medication list w/patient every two weeks and Instruct importance of taking meds as ordered & assist problem solving 30-day Reassessments:: Progressing Reassessment Notes & Comments:: Pt takes medications as prescribed, pt attending medication education classes Tobacco Use Tobacco Use: Non-smoker Hypertension Hypertension Diagnosis:: Hypertension ICD-10 I10 Resting Blood Pressure:: 136/54 Resting Blood Pressure:: 104/54 [place] [employer] Hypertension Guidelines Peak Exercise Blood Pressure:: 156/64 Outcomes/Goals: Able to verbalize/achieve optimal blood pressure <130/80 and Incorporates diet changes & exercise for blood pressure control by DC Interventions/plan: Instruct on optimal blood pressure, hypertension & medications and Instruct on effects of sodium, alcohol, stress, exercise &hypertension 30 day Reassessments:: Progressing Reassessment Notes & Comments:: Pt educated on heart healthy diet, low sodium, importance of taking BP medications Tobacco Cessation Referral Smoking Cessation Referral:: No Individual Education/Counseling:: No Education Schedule Given:: Yes Psychosocial - 30-Day Assess Target Goals Target Goals Referral to Behavioral Health PS - Interventions: Yes: Attend Stress Management Classes and No: Referral to Behavioral Health if PHQ-9 score >9:, No: Referral to [facility] and No: Referral to Physician if PHQ-9 if score is 5-9: Outcomes/Goals: See list Psychosocial Outcomes/Goals:: ID's personal stressors & 2 strategies to manage stress by discharge Psychosocial - 60-Day Assess VIsit Date of Eval: 09/16/24 Session #:: 22 Not Applicable: No History of previous Mental disease:: No History of Emotional Disorders: None Target Goals Target Goals Psychosocial Test Tool Used:: PHQ-9 Questionnaire phq-9 Severity See PHQ-9 Score: 0 Total Score:: 0 Referral to Behavioral Health PS - Interventions: Yes: Attend Stress Management Classes and No: Referral to Behavioral Health if PHQ-9 score >9:, No: Referral to [facility] and No: Referral to Physician if PHQ-9 if score is 5-9: Outcomes/Goals: See list Psychosocial Outcomes/Goals:: ID's personal stressors & 2 strategies to manage stress by discharge Intervention/Plan: See List Interventions/Plan:: Assess stressors,coping strategies & signs of derpression on admission, Instruct/assist pt to develop coping & personal stress Mgt strategies, Refer to Behavioral Health if appropriate, Refer to Physician if appropriate and Instruct patient to recognize signs & symptoms of depression 30-day Reassessments: 30 day Reassessments:: Met Psychosocial - 90-Day Assess Target Goals Target Goals Referral to Behavioral Health PS - Interventions: Yes: Attend Stress Management Classes and No: Referral to Behavioral Health if PHQ-9 score >9:, No: Referral to [facility] and No: Referral to Physician if PHQ-9 if score is 5-9: Psychosocial - Final Assessmen Target Goals Target Goals Referral to Behavioral Health PS - Interventions: Yes: Attend Stress Management Classes and No: Referral to Behavioral Health if PHQ-9 score >9:, No: Referral to [facility] and No: Referral to Physician if PHQ-9 if score is 5-9: Nutrition - 90-Day Assessment Weight Mgt (Other Care) Height: 5 ft 8 in Weight:: 142 lb BMI: 21.6 Nutrition - Final Assessment Weight Mgt (Other Care) Height: 5 ft 8 in Weight:: 142 lb BMI: 21.6
[2024-09-16 08:14] VITALS: BP 136/54
[2024-09-16 08:31] VITALS: BP 104/54; BP 136/54; BMI 21.6
== END 2024-10-05 23:59 ==
LOC: CR 08:00
PROVIDERS: PCP Family Medicine; Referring Provider Internal Medicine Cardiovascular Disease; Visit Provider Internal Medicine Cardiovascular Disease
DX: Z95.5 Presence of coronary angioplasty implant and graft (principal); I25.10 Atherosclerotic heart disease of native coronary artery without angina pectoris; R93.1 Abnormal findings on diagnostic imaging of heart and coronary circulation; E78.5 Hyperlipidemia, unspecified; I10 Essential (primary) hypertension
CPT/HCPCS: 93798

== ENCOUNTER 2024-11-04 08:00 | Outpatient (RCR) | payer MEDICARE, OTHER, SELFPAY ==
[2024-09-16 08:31] VITALS: BMI 21.6
[2024-10-06 00:18] VITALS: BP 104/54; BP 124/48; BP 136/54
--- NOTE | 2024-10-14 06:55 | CR.ITP_ITS ---
Exercise - Initial Assessment Physician Prescribed Exercise Modalities: Treadmill, Schwinn Airdyne AD-7 and SciFit Stepper Nutrition - Initial Assessment Weight Mgt (Other Care) Height: 5 ft 8 in Weight:: 142 lb BMI: 21.6 Psychosocial - Initial Assess Target Goals Target Goals Referral to Behavioral Health PS - Interventions: Yes: Attend Stress Management Classes Patient Health Questionnaire PHQ-9 Screening 90-Day Re-eval Assessment: 1. Little interest or pleasure in doing things: Not at all 2. Feeling down, depressed, or hopeless: Not at all 3. Trouble falling or staying asleep, or sleeping too much: Not at all 4. Feeling tired or having little energy: Not at all 5. Poor appetite or overeating: Not at all 6. Feeling bad about yourself -- or that you are a failure or have let yourself or your family down: Not at all 7. Trouble concentrating on things, such as reading the newspaper or watching television: Not at all 8. Moving or speaking so slowly that other people could have noticed. Or the opposite - being so fidgety or restless that you have been moving around a lot more than usual: Not at all 9. Thoughts that you would be better off , or of hurting yourself in some way: Not at all How difficult have these problems made it for you to do your work, take care of things at home, or get along with other people?: Not difficult at all Total Score: 0 Self-Efficacy 6-Item Scale 90-Day Re-eval Assessment: We would like to know how confident you are in doing certain activities. Please select your confidence level for: Fatigue Select Number: 8 Physical Discomfort or Pain Select Number: 7 Emotional Distress Select Number: 9 Other Symptoms or Health Problems Select Number: 7 Different Tasks and Activities Select Number: 8 Medication Select Number: 8 Total Score:: 7 Nutrition Survey Nutrition Survey Instructions Scoring Instructions Exercise - 30-day Assessment Physician Prescribed Exercise Modalities: Treadmill, Schwinn Airdyne AD-7 and SciFit Stepper Exercise - 60-day Assessment Physician Prescribed Exercise Modalities: Treadmill, Schwinn Airdyne AD-7 and SciFit Stepper Exercise - 90-day Assessment Visit Date of Eval: 10/14/24 Session #:: 28 Physician Prescribed Exercise Modalities: Treadmill, Schwinn Airdyne AD-7 and SciFit Stepper Frequency: 3x/week for 12 weeks [36 sessions] Intensity: 60-80% of age predicted maximum heart rate reserve Duration: 30 - 45 minutes Current METSs:: 8.5 Target Heart Rate:: 90-120 Current RPE:: 12-15 Maximum Excercise HR:: 120 Resting Blood Pressure: 140/60 Maximum Exercise Blood Pressure: 148/60 EKG Type: SB to ST w/ rare PVC and occas PAC's Outcomes & Goals Goals:: Verbalizes understanding of THR, RPE & goal METS by session 6, Documents in home exercise log/reports 30 min aerobic 5 day/wk by DC, Demonstrates accurate pulse taking by DC and Other additional outcome/goals: see below Intervention & Plan Exercise Program Goals: Instruct on personal THR & RPE, Instruct on MET level & personal MET goal, Show patient to take own pulse /validate performance until accurate, Instruct on home exercise and Other additional plan/int Physical Activity Home Exercise Physical Activity - Home Exercise: Safe Exercise, Warm-up, Self-monitoring, Cool-Down, Home Exercise > 30 min Daily and Sitting Time <3 hours/daily Outcomes & Goals Outcomes/Goals: Demonstrates correct Warm-up/exercise Cool-Down (S3) if = 2.5 METs, Verbalizes symptoms of exercise intolerance by Session 3 (S3), Demonstrate safe equipment use (S3) & follows exercise prescrition (6) and Other: See below Intervention & Plan Plan/Intervention: Instruct warm-up & cool-down if exercising at > 2 METs, Instruct on symptoms of exercise intolerance & actions to take, Instruct & monitor on saf, Assess intial functional capacity & safety risk and Other See below 30-day Reassessments 30 day Reassessments:: Progressing Reassessment Notes & Comments:: Pt has done very well. He continues to increase his exercise tolerance safely. Will continue to encourage and increase workloads as tolerated. Exercise - Final/Discharge Physician Prescribed Exercise Modalities: Treadmill, Schwinn Airdyne AD-7 and SciFit Stepper Nutrition - 30-Day Assessment Weight Mgt (Other Care) Height: 5 ft 8 in Weight:: 142 lb BMI: 21.6 Nutrition - 60-Day Assessment Weight Mgt (Other Care) Height: 5 ft 8 in Weight:: 142 lb BMI: 21.6 Core - 30-Day Assessment Hypertension [place] [employer] Hypertension Guidelines Reassessment Notes & Comments:: Pt's BP's are within AHA normal limits on some days. Will continue to monitor and send report to pt's physician if necessary. Core - Final Assessment Hypertension [place] [employer] Hypertension Guidelines Reassessment Notes & Comments:: Pt's BP's are within AHA normal limits on some days. Will continue to monitor and send report to pt's physician if necessary. Core - 90 Day Assessment Visit Date of Eval: 10/14/24 Session #:: 28 Medication Compliance Preventative Medication(s):: Aspirin, Clopidogrel/P2Y12 inhibit and Statin/lipid H/O mental health issues: depression, anxiety, or addiction?: No Doesn?t believe in the benefits of treatment?: No Believes medications are unnecessary or harmful?: No Has a concern about medication side effects?: No Expresses concern over the cost of medications?: No Outcomes/Goals: Verbalizes medications,desired effect & common side effects @ DC, Pt self-reports following medication regimen, Keeps card in wallet w/medications listed by DC and Other additional outcome/goals: Interventions/plans: Instruct on medication effects & side effects, Review medication list w/patient every two weeks, Instruct importance of taking meds as ordered & assist problem solving and Other additional 30-day Reassessments:: Met Reassessment Notes & Comments:: Pt is taking meds as prescribed. Tobacco Use Tobacco Use: Non-smoker Hypertension Hypertension Diagnosis:: Hypertension ICD-10 I10 Resting Blood Pressure:: 140/60 [place] [employer] Hypertension Guidelines Peak Exercise Blood Pressure:: 148/60 Outcomes/Goals: Able to verbalize/achieve optimal blood pressure <130/80, Incorporates diet changes & exercise for blood pressure control by DC and Other additional outcomes/goals Interventions/plan: Instruct on optimal blood pressure, hypertension & medications, Instruct on effects of sodium, alcohol, stress, exercise &hypertension and Other additional plan/interventions 30 day Reassessments:: Progressing Reassessment Notes & Comments:: Pt's BP's are within AHA normal limits on some days. Will continue to monitor and send report to pt's physician if necessary. Tobacco Cessation Referral Smoking Cessation Referral:: No Individual Education/Counseling:: No Education Schedule Given:: Yes Psychosocial - 30-Day Assess Target Goals Target Goals Referral to Behavioral Health PS - Interventions: Yes: Attend Stress Management Classes Psychosocial - 60-Day Assess Target Goals Target Goals Referral to Behavioral Health PS - Interventions: Yes: Attend Stress Management Classes Psychosocial - 90-Day Assess VIsit Date of Eval: 10/14/24 Session #:: 28 History of previous Mental disease:: No Target Goals Target Goals Psychosocial Test Tool Used:: [employer] QOL Cardiac and PHQ-9 Questionnaire phq-9 Severity See PHQ-9 Score: 0 Referral to Behavioral Health PS - Interventions: Yes: Attend Stress Management Classes Outcomes/Goals: See list Psychosocial Outcomes/Goals:: ID's personal stressors & 2 strategies to manage stress by discharge and Other Additional outcome/goals: Intervention/Plan: See List Interventions/Plan:: Assess stressors,coping strategies & signs of derpression on admission, Instruct/assist pt to develop coping & personal stress Mgt strategies, Refer to Behavioral Health if appropriate, Refer to Physician if appropriate, Instruct patient to recognize signs & symptoms of depression, Instruct patient to recog and Other additional plan/intervention 30-day Reassessments: 30 day Reassessments:: Met Reassessment Notes & Comments:: Pt has attended stress management class. Pt denies any psychosocial issues at this time. Psychosocial - Final Assessmen Target Goals Target Goals Referral to Behavioral Health PS - Interventions: Yes: Attend Stress Management Classes Nutrition - 90-Day Assessment Program Goals Nutrition Program Goals Patient has diagnosis of Hyperlipidemia (ICD E78)?: Yes Visit Date of Eval: 10/14/24 Session #:: 28 Cholesterol/Lipids (Other Core Measures) Determine presence & major risk factors that modify LDL goal: Hypertension or hypertensive medication, Low HDL cholesterol <40 mg/dL*, Family history of premature CHD in Male < 55 years: female <65 yearsFa and Age men > 45 years; wo men >/= 55 years Outcomes/Goals: Pt IDs own risk factors & lifestyle modifications by Session 10, Verbalizes symptoms of angina & response by session 3., Pt independently manages and Other Additional Outcomes/Goals: Intervention/Plan: Advocate for lipid panel cholesterol medication if applicable, Instruct on personal lipid levels & lipid goals/NCEP guidelines, Instruct on cholesterol and Other additional plan/int Diabetes (Other Core Measures) Diabetes Type: Not Applicable Weight Mgt (Other Care) Height: 5 ft 8 in Weight:: 142 lb BMI: 21.6 Diagnosis Overweight/Obesity BMI> 30% ICD-10 E66: No Diagnosis High BMI/Morbid Obesity BMI> 35% ICD-10 Z68: No Outcomes/Goals: Pt sets, maintains & shows weight loss goal & trend during rehab and Other additional outcomes/goals Intervention/Plan: Instruct on ideal BMI & set weight loss goal w/patient, Assist pt to ID & incorporate diet changes for weight loss by S9, Refer to Structured Weight Loss program as appropriate, Encourage goal of using 250- 300dcal per session for weight loss and Other additional plan/interventions 30 day Reassessments:: Met Reassessment Notes & Comments:: Pt is at a healthy weight. Healthy Eating Habits Will attend diet classes:: Yes Outcomes/Goals:: Consume diet rich in vegs,fruits,whole grain/high fiber,fish,lean meat, Limit sat/trans fats,cholesterol & added salts & sugars and Other additional outcome/goals: Intervention/Plan:: Assess current eating habits and Other Additional plan/interventions 30-day Reassessments:: Met Reassessment Notes & Comments:: Pt has attended nutrition classes. Pt understands the benefits of a heart healthy low sodium diet. Will continue to encourage. Education Gave educational materials for:: Signs & symptoms of hypoglycemia, Signs & symptoms of hyperglycemia, Relate diabetes to coronary artery disease and Healthy eating Nutrition - Final Assessment Weight Mgt (Other Care) Height: 5 ft 8 in Weight:: 142 lb BMI: 21.6
[2024-10-14 07:08] VITALS: BP 140/60; BMI 21.6
== END 2024-11-05 23:59 ==
LOC: CR 08:00
PROVIDERS: PCP Family Medicine; Referring Provider Internal Medicine Cardiovascular Disease; Visit Provider Internal Medicine Cardiovascular Disease
DX: Z95.5 Presence of coronary angioplasty implant and graft (principal); I25.10 Atherosclerotic heart disease of native coronary artery without angina pectoris; R93.1 Abnormal findings on diagnostic imaging of heart and coronary circulation; E78.2 Mixed hyperlipidemia; I10 Essential (primary) hypertension
CPT/HCPCS: 93798

== ENCOUNTER → 2024-11-11 | Outpatient (CLI) | payer MEDICARE, OTHER, SELFPAY ==
[2024-10-14 07:08] VITALS: BMI 21.6
--- OUTSIDE RECORDS SUMMARY | 2024-11-11 06:51 | XMS RPT_ITS | CCD ---
Author Organization [facility] ion Partnership [facility] Care Team Providers Care Diagnostic Imaging Manager Name Role Phone Rudy Howe Unavailable Dr. Kenny Carlson Primary Care Provider Sherice Hutson Attending Provider Unavailable Dr. Kenny Carlson Referring Provider Dr. Thomas Montoya Attending Provider Dr. Thomas Montoya Other Provider Benjie Carlson MD Primary Care Provide r BENJIE CARLSON Referring Unavail BENJIE Barba Primary Care Unavail able Robyn OMALLEY, Dr. Meier Primary Care Provider Dr. Benjie Carlson MD Attending Provider [phone] Dr. Benjie Carlson MD Referring Provider [phone] Dr. Benjie Carlson MD Other Provider [phone] Dr. James Norris MD Attending Provider [phone] James Norris MD Referring Provider [phone] Rohini Andrews Attending Provider [phone] Dr. Benjie Carlson MD Primary Care Provider Dr. James Norris MD Attending Provider Dr. James Norris MD Referring Provider [phone] Benjie Carlson MD Referring Provider Benjie Carlson Primary Care Unavailable Myrna, James Attending Unavailable Myrna, James Referring Unavailable Ranney, Christopher Primary Care Unavailable Myrna, [place] Attending Unavailable Myrna, [place] Referring Unavailable Ranney, Christopher Primary Care Unavailable Myrna, [place] Attending Unavailable Myrna, James Referring Unavailable Ranney, Christopher Primary Care Unavailable Myrna, [place] Attending Unavailable Myrna, [place] Referring Unavailable Ranney, Christopher Primary Care Unavailable Myrna, James Attending Unavailable Myrna, [place] Referring Unavailable Ranney, Christopher Referring Unavailable Myrna, James Attending Unavailable Ranney, Christopher Consulting Unavailable Ranney, Christopher Primary Care Unavailable Ranney, Christopher Primary Care Unavailable Myrna, James Attending Unavailable Ranney, Christopher Primary Care Unavailable Ranney, Christopher Referring Unavailable Rohini Andrews Attending Unavail able Ranney, Christopher Primary Care Unavailable Ranney, Christopher Referring Unavailable Myrna, [place] Attending Unavailable Ranney, Christopher Primary Care Unavailable Myrna, [place] Attending Unavailable Myrna, James Referring Unavailable Ranney, Christopher Referring Unavailable Ranney, Christopher Attending Unavailable Ranney, Christopher Primary Care Unavailable Ranney, Christopher Referring Unavailable Ranney, Christopher Attending Unavailable Ranney, Christopher Primary Care Unavailable Ranney, Christopher Primary Care Unavailable Myrna, James Referring Unavailable Myrna, James Attending Unavailable Ranney, Christopher Primary Care Unavailable Myrna, James Attending Unavailable Myrna, James Referring Unavailable Allergies Allergy Classification Reported Allergen(s) Allergy Type Date of Onset Reaction(s) Facility (5 sources) Hornet venom; Translations: [hornet venom] Allergy to substance 2 [facility] Comment on above: Has Epipen (4 sources) venom-honey bee Allergy to substance 2 [facility] Comment on above: Has Epipen (1 source) ALLERGIES NOT ON FILE; Translations: [ALLERGIES NOT ON FILE] Propensity to adverse reactions (disorder) [facility] 2 Repository (1 source) venom-honey bee Drug allergy (disorder) [address] [place] [address] Repository Medications Current Medications Medication Drug Class(es) Dates Sig (Normalized) Sig (Original) amLODIPine 10 mg oral tablet (4 sources) Dihydropyridine Calcium Channel Lan Start: 04-17-2022 take 1 tablet by mouth once daily Amlodipine (Norvasc) 10 mg tablet Active 10 mg PO DAILY April 17, 2022 1:00am aspirin 81 mg delayed release oral tablet (6 sources) Platelet Aggregation Inhibitor, Nonsteroidal Anti-inflammatory Drug Start: 04-17-2022 Aspirin (Adult Low Dose Aspirin) 81 mg tablet,delayed release (DR/EC) Active 81 mg PO DAILY April 17, 2022 1:00am take 1 tablet by mouth once leobardo y ASPIRIN LOW DOSE TBEC One tablet by mouth daily ASPIRIN [facility] [id number] Catracho Miller MD take 1 tablet by mouth once leobardo y ASPIRIN LOW DOSE TBEC One tablet by mouth daily ASPIRIN [facility] [id number] Catracho Miller MD atorvastatin 40 mg oral tablet (13 sources) HMG-CoA Reductase Inhibitor Start: 07-18-2024 End: 08-22-2024 take 1 tablet by mouth once daily Atorvastatin 40 mg tablet Active 40 mg PO DAILY August 22, 2024 10:21am Start: 07-06-2024 End: 07-18-2024 take 1 tablet by mouth once daily Atorvastatin 20 mg tablet Discontinued 20 mg PO DAILY July 06, 2024 1:00am July 18, 2024 5:19pm Start: 12-31-2016 End: 07-06-2024 take 1 tablet by mouth at bedtime Atorvastatin 10 MG tablet Discontinued 10 mg PO AT BEDTIME December 31, 2016 12:00am July 06, 2024 11:01am azithromycin 250 mg oral tablet (2 sources) Macrolide Antimicrobial Start: 08-01-2024 Azithromycin (Zithromax Z-Antonio) 250 mg tablet Active 0 PO .COMPLEX 6 August 01, 2024 1:00am For 250 mg dose pack: take 500 mg today (day 1), then 250 mg for 4 days (days 2-5) PO clopidogrel 75 mg oral tablet (4 sources) P2Y12 Platelet Inhibitor Start: 07-18-2024 End: 08-22-2024 take 1 tablet by mouth once daily Clopidogrel (Plavix) 75 mg tablet Active 75 mg PO daily August 22, 2024 10:21am [place] 1-Adz-Mpt-Fish Oil (4 sources) Start: 04-17-2022 [place] 9-Jni-Jnc-Fish Oil (Fish Oil) 300-1,000 mg capsule Active 1 NMA PO DAILY April 17, 2022 1:00am Start: 04-17-2022 take 300-1000 mg by mouth once daily [place] 8-Rui-Xoz-Fish Oil (Fish Oil) 300-1,000 mg capsule Active 1 CAP PO DAILY April 17, 2022 1:00am Start: 04-17-2022 take 300-1000 mg by mouth once daily [place] 7-Lap-Fzo-Fish Oil (Fish Oil) 300-1,000 mg capsule Active 1 CAP PO DAILY April 17, 2022 12:00am [id number] 0.3 ml EPINEPHrine 1 mg/ml auto-injector (5 sources) alpha-Adrenergic Agonist, beta-Adrenergic Agonist, Catecholamine Start: 12-31-2016 inject 0.3 mg by intramuscular injection once Epinephrine 0.3 MG syringe Active 0.3 mg IM ONE TIME December 31, 2016 12:00am famotidine 20 mg oral tablet (1 source) Histamine-2 Receptor Antagonist Start: 12-31-2016 take 20 mg by mouth twice daily Famotidine Active 20 MG PO TWICE A DAY December 31, 2016 12:00am hydroCHLOROthiazide 12.5 mg oral tablet (4 sources) Thiazide Diuretic Start: 05-21-2022 take 1 tablet by mouth once daily Hydrochlorothiazide 12.5 mg tablet Active 12.5 mg PO DAILY May 21, 2022 1:00am latanoprost 0.05 mg/ml ophthalmic solution (4 sources) Prostaglandin Analog Start: 04-17-2022 Latanoprost 0.005 % drops Active 1 NMA OPHTHALMIC DAILY April 17, 2022 1:00am Multivitamin preparation (2 sources) Start: 04-17-2022 take 1 tablet by mouth once daily Multivitamin Active 1 TABLET PO DAILY April 17, 2022 1:00am Start: 04-17-2022 take 1 tablet by rhoda once daily Multivitamin Active 1 TABLET PO DAILY April 17, 2022 12:00am Multivitamin tablet (4 sources) Start: 07-06-2024 Multivitamin t ablet Active 1 {tbl} PO DAILY July 06, 2024 11:02am Start: 04-17-2022 End: 07-06-2024 Multivitamin tablet Disconti nued 1 {tbl} PO DAILY April 17, 2022 1:00am July 06, 2024 11:02am predniSONE 20 mg oral tablet (1 source) Start: 12-31-2016 take 60 mg by mouth once daily Prednisone Active 60 MG PO DAILY 15 December 31, 2016 12:00am psyllium 400 mg oral capsule (4 sources) Start: 04-17-2022 Psyllium Husk (Daily Fiber) 0.4 gram capsule Active 0.8 g PO DAILY April 17, 2022 1:00am ramipril 10 mg oral capsule (11 sources) Angiotensin Converting Enzyme Inhibitor Start: 12-31-2016 take 2 capsules by mouth once daily Ramipril 10 MG capsule Active 20 mg PO DAILY December 31, 2016 12:00am Start: 12-31-2016 take 20 mg by mouth once daily Ramipril Active 20 MG PO DAILY December 31, 2016 12:00am Start: 04-01-2011 take 1 tablet by rhoda th twice daily RAMIPRIL 10 MG CAPS One tablet by mouth twice daily. RAMIPRIL [id number] Catracho Miller MD End: 04-01-2011 take 1 tablet by mouth once daily RAMIPRIL 10 MG CAPS One tablet by mouth daily RAMIPRIL [id number] Catracho Miller MD Timolol Maleate (2 sources) beta-Adrenergic Lan Start: 07-06-2024 Timolo l Maleate 0.5 % drops Active NMA OPHTHALMIC July 06, 2024 1:00am Completed/Discontinued Medications Medication Drug Class(es) Dates Sig (Normalized) Sig (Original) PSYLLIUM CAPS (2 sources) take 2 tablets by mouth once daily FIBER CAPS Two tablets by mouth daily PSYLLIUM CAPS [id number] Catracho Miller MD Fish Oils (2 sources) Start: 04-02-2010 take 1 tablet by mouth once daily FISH OIL CAPS One tablet by mouth daily. OMEGA-3 FATTY ACIDS CAPS [id number] Catracho Miller MD MULTIPLE VITAMINS-MINERALS (1 source) take 1 tablet by mouth once daily CENTRUM TABS One tablet by mouth daily MULTIPLE VITAMINS-MINERALS [id number] Catracho Miller MD MULTIPLE VITAMINS-MINERALS (1 source) take 1 tablet by mouth once daily CENTRUM TABS One tablet by mouth daily MULTIPLE VITAMINS-MINERALS [id number] Catracho Miller MD ticagrelor 90 mg oral tablet (8 sources) Start: 07-18-2024 End: 07-18-2024 take 1 tablet by mouth twice daily Ticagrelor (Brilinta) 90 mg tablet Discontinued 90 mg PO TWICE A DAY 60 July 18, 2024 5:22pm July 18, 2024 5:35pm Problems Active Problems Problem Classification Problem Date Documented Date Episodic/Chronic Coronary atherosclerosis and other heart disease (4 sources) Arteriosclerotic vascular disease; Translations: [Atherosclerotic heart disease of [place] coronary artery without angina pectoris] Onset: 06-20-2024 05-30-2024 Chronic Disorders of lipid metabolism (10 sources) Hypercholesterolemia; Translations: [Pure hypercholesterolemia, unspecified] Onset: 04-02-2010 04-02-2010 Chronic Comment on above: ON MEDICATION Essential hypertension (14 sources) Hypertensive disorder; Translations: [Essential hypertension] Onset: 04-02-2010 12-31-2016 Chronic Other lower respiratory disease (4 sources) Abnormal breath sounds; Translations: [Other abnormalities of breathing] 08-01-2024 Episodic Unclassified (2 sources) Z95.5 - Presence of coronary angioplasty implant and graft,I25.10 - Atherosclerotic heart disease of [place] coronary artery without angina pectoris,R93.1 - Abnormal findings on diagnostic imaging of heart and coronary circulation,E78.5 - Hyperlipidemia, unspecified,I10 - Essential (primary) hypertension Past or Other Problems Problem Classification Problem Date Documented Da te Episodic/Chronic Coronary atherosclerosis and other heart disease (4 sources) Stented coronary artery; Translations: [Presence of coronary angioplasty implant and graft] Onset: 07-18-2024 07-18-2024 Episodic Comment on above: 2.75 X 22 mm [place] Fr ontier MANJIT to RCA Other connective tissue disease (2 sources) Plantar fasciitis; Translations: [Plantar fascial fibromatosis] Onset: 04-02-2010 04-02-2010 Episodic Other injuries and conditions due to external causes (2 sources) Angioneurotic edema, initial encounter; Translations: [Angioneurotic edema, initial encounter] Onset: 12-31-2016 12-31-2016 Episodic Other screening for suspected conditions (not mental disorders or infectious disease) (9 sources) Patient encounter status; Translations: [Encounter for screening for malignant neoplasm of colon] Onset: 07-18-2024 Episodic Unclassified (1 source) Physical examination; Translations: [Encounter for general adult medical examination without abnormal findings] Onset: 04-02-2010 Resolved: 04-02-2010 04-02-2010 Results Test Name Value Interpretation Reference Range Facility No Panel InformationOrdered By: Hang Tejeda on 10-14-2024 [facility] [address] [place] [address] CR - Individual Treatment Plan MR#: [id number] Acct: [id number] Name: DENYS SARGENT Rep #:[id number] : 1955 69 From: Hang Rogers BS, RVT PCP: Dr. Benjie Carlson MD DOS: 10/12/24 Exercise - Initial Assessment Physician Prescribed Exercise Modalities: Treadmill, Schwinn Airdyne AD-7 and SciFit Stepper Nutrition - Initial Assessment Weight Mgt (Other Care) Height: 5 ft 8 in Weight:: 142 lb BMI: 21.6 Psychosocial - Initial Assess Target Goals Target Goals Referral to Behavioral Health PS - Interventions: Yes: Attend Stress Management Classes Patient Health Questionnaire PHQ-9 Screening 90-Day Re-eval Assessment: 1. Little interest or pleasure in doing things: Not at all 2. Feeling down, depressed, or hopeless: Not at all 3. Trouble falling or staying asleep, or sleeping too much: Not at all 4. Feeling tired or having little energy: Not at all 5. Poor appetite or overeating: Not at all 6. Feeling bad about yourself -- or that you are a failure or have let yourself or your family down: Not at all 7. Trouble concentrating on things, such as reading the newspaper or watching television: Not at all 8. Moving or speaking so slowly that other people could have noticed. Or the opposite - being so fidgety or restless that you have been moving around a lot more than usual: Not at all 9. Thoughts that you would be better off , or of hurting yourself in some way: Not at all How difficult have these problems made it for you to do your work, take care of things at home, or get along with other people?: Not difficult at all Total Score: 0 Self-Efficacy 6-Item Scale 90-Day Re-eval Assessment: We would like to know how confident you are in doing certain activities. Please select your confidence level for: Fatigue Select Number: 8 Physical Discomfort or Pain Select Number: 7 Emotional Distress Select Number: 9 Other Symptoms or Health Problems Select Number: 7 Different Tasks and Activities Select Number: 8 Medication Select Number: 8 Total Score:: 7 Nutrition Survey Nutrition Survey Instructions Scoring Instructions Exercise - 30-day Assessment Physician Prescribed Exercise Modalities: Treadmill, Schwinn Airdyne AD-7 and SciFit Stepper Exercise - 60-day Assessment Physician Prescribed Exercise Modalities: Treadmill, Schwinn Airdyne AD-7 and SciFit Stepper Exercise - 90-day Assessment Visit Date of Eval: 10/14/24 Session #:: 28 Physician Prescribed Exercise Modalities: Treadmill, Schwinn Airdyne AD-7 and SciFit Stepper Frequency: 3x/week for 12 weeks [36 sessions] Intensity: 60-80% of age predicted maximum heart rate reserve Duration: 30 - 45 minutes Current METSs:: 8.5 Target Heart Rate:: 90-120 Current RPE:: 12-15 Maximum Excercise HR:: 120 Resting Blood Pressure: 140/60 Maximum Exercise Blood Pressure: 148/60 EKG Type: SB to ST w/ rare PVC and occas PAC's Outcomes & Goals Goals:: Verbalizes understanding of THR, RPE & goal METS by session 6, Documentsin home exercise log/reports 30 min aerobic 5 day/wk by DC, Demonstrates accurate pulse taking by DC and Other additional outcome/goals: see below Intervention & Plan Exercise Program Goals: Instruct on personal THR & RPE, Instruct on MET level & personal MET goal, Show patient to take own pulse /validate performance until accurate, Instruct on home exercise and Other additional plan/int Physical Activity Home Exercise Physical Activity - Home Exercise: Safe Exercise, Warm-up, Self-monitoring, Cool-Down, Home Exercise > 30 min Daily and Sitting Time <3 hours/daily Outcomes & Goals Outcomes/Goals: Demonstrates correct Warm-up/exercise Cool-Down (S3) if = 2.5 METs, Verbalizes symptoms of exercise intolerance by Session 3 (S3), Demonstratesafe equipment use (S3) & follows exercise prescrition (6) and Other: See below Intervention & Plan Plan/Intervention: Instruct warm-up & cool-down if exercising at > 2 METs, Instruct on symptoms of exercise intolerance & actions to take, Instruct & monitor on saf, Assess intial functional capacity & safety risk and Other See below 30-day Reassessments 30 day Reassessments:: Progressing Reassessment Notes & Comments:: Pt has done very well. He continues to increasehis exercise tolerance safely. Will continue to encourage and increase workloads as tolerated. Exercise - Final/Discharge Physician Prescribed Exercise Modalities: Treadmill, Schwinn Airdyne AD-7 and SciFit Stepper Nutrition - 30-Day Assessment Weight Mgt (Other Care) Height: 5 ft 8 in Weight:: 142 lb BMI: 21.6 Nutrition - 60-Day Assessment Weight Mgt (Other Care) Height: 5 ft 8 in Weight:: 142 lb BMI: 21.6 Core - 30-Day Assessment Hypertension [place] [employer] Hypertension Guidelines Reassessment Notes & Comments:: Pt's BP's are within AHA normal limits on some days. Will continue to monitor and send report to pt's physician if necessary. Core - Final Assessment Hypertension [place] [employer] Hypert (more content not included)... [facility] No Panel InformationOrdered By: Hang Tejeda on 08-18-2024 [facility] [address] [place] [address] CR - Individual Treatment Plan MR#: [id number] Acct: [id number] Name: DENYS SARGENT Rep #:[id number] : 1955 69 From: Hang Rogers BS, RVT PCP: Dr. Benjie Carlson MD DOS: 08/17/24 Exercise - Initial Assessment Visit Session #:: 5 Physician Prescribed Exercise Modalities: Treadmill, Schwinn Airdyne AD-7 and SciFit Stepper Nutrition - Initial Assessment Weight Mgt (Other Care) Height: 5 ft 8 in Weight:: 143 lb BMI: 21.7 Psychosocial - Initial Assess Target Goals Target Goals Referral to Behavioral Health PS - Interventions: Yes: Attend Stress Management Classes Patient Health Questionnaire PHQ-9 Screening 30-Day Re-eval Assessment: 1. Little interest or pleasure in doing things: Not at all 2. Feeling down, depressed, or hopeless: Not at all 3. Trouble falling or staying asleep, or sleeping too much: Not at all 4. Feeling tired or having little energy: Not at all 5. Poor appetite or overeating: Not at all 6. Feeling bad about yourself -- or that you are a failure or have let yourself or your family down: Not at all 7. Trouble concentrating on things, such as reading the newspaper or watching television: Not at all 8. Moving or speaking so slowly that other people could have noticed. Or the opposite - being so fidgety or restless that you have been moving around a lot more than usual: Not at all 9. Thoughts that you would be better off , or of hurting yourself in some way: Not at all How difficult have these problems made it for you to do your work, take care of things at home, or get along with other people?: Not difficult at all Total Score: 0 Self-Efficacy 6-Item Scale 30-Day Re-eval Assessment: We would like to know how confident you are in doing certain activities. Please select your confidence level for: Fatigue Select Number: 8 Physical Discomfort or Pain Select Number: 7 Emotional Distress Select Number: 9 Other Symptoms or Health Problems Select Number: 7 Different Tasks and Activities Select Number: 8 Medication Select Number: 8 Total Score:: 7 Nutrition Survey Nutrition Survey Instructions Scoring Instructions Exercise - 30-day Assessment Visit Date of Eval: 08/18/24 Session #:: 5 Physician Prescribed Exercise Modalities: Treadmill, Schwinn Airdyne AD-7 and SciFit Stepper Frequency: 3x/week for 12 weeks [36 sessions] Intensity: 60-80% of age predicted maximum heart rate reserve Duration: 30 - 45 minutes Current METSs:: 6.4 Target Heart Rate:: 90-113 Current RPE:: 10-11 Maximum Excercise HR:: 87 Resting Blood Pressure: 124/48 Maximum Exercise Blood Pressure: 130/64 EKG Type: NSR-STrare PVC, PAC Outcomes & Goals Goals:: Verbalizes understanding of THR, RPE & goal METS by session 6, Documentsin home exercise log/reports 30 min aerobic 5 day/wk by DC, Demonstrates accurate pulse taking by DC and Other additional outcome/goals: see below Intervention & Plan Exercise Program Goals: Instruct on personal THR & RPE, Instruct on MET level & personal MET goal, Show patient to take own pulse /validate performance until accurate, Instruct on home exercise and Other additional plan/int Physical Activity Home Exercise Physical Activity - Home Exercise: Safe Exercise, Warm-up, Self-monitoring, Cool-Down, Home Exercise > 30 min Daily and Sitting Time <3 hours/daily Outcomes & Goals Outcomes/Goals: Demonstrates correct Warm-up/exercise Cool-Down (S3) if = 2.5 METs, Verbalizes symptoms of exercise intolerance by Session 3 (S3), Demonstratesafe equipment use (S3) & follows exercise prescrition (6) and Other: See below Intervention & Plan Plan/Intervention: Instruct warm-up & cool-down if exercising at > 2 METs, Instruct on symptoms of exercise intolerance & actions to take, Instruct & monitor on saf, Assess intial functional capacity & safety risk and Other See below 30-day Reassessments 30 day Reassessments:: Progressing Reassessment Notes & Comments:: RPE explained to pt. Pt demonstrates understanding. Exercise - 60-day Assessment Physician Prescribed Exercise Modalities: Treadmill, Schwinn Airdyne AD-7 and SciFit Stepper Exercise - 90-day Assessment Physician Prescribed Exercise Modalities: Treadmill, Schwinn Airdyne AD-7 and SciFit Stepper Exercise - Final/Discharge Physician Prescribed Exercise Modalities: Treadmill, Schwinn Airdyne AD-7 and SciFit Stepper Nutrition - 30-Day Assessment Program Goals Nutrition Program Goals Patient has diagnosis of Hyperlipidemia (ICD E78)?: Yes Visit Date of Eval: 08/18/24 Session #:: 5 Cholesterol/Lipids (Other Core Measures) Determine presence & major risk factors that modify LDL goal: Hypertension or hypertensive medication, Low HDL cholesterol <40 mg/dL*, Family history of premature CHD in Male < 55 years: female <65 yearsFa and Age men > 45 years; women >/= 55 years Outcomes/Goals: Pt IDs own risk factors & lifestyle modifications by Session 10,Verbalizes symptoms of angina & response by session 3., Pt indepen (more content not included)... [facility] Cardiology Visit Reporton Cardiology Visit Report [facility] [address] [place], [place] [address]. [address] [place] [address] OFFICE VISIT Date of Service: 08/01/24 MR#: [id number] Acct: [id number] Name: DENYS SARGENT Rep #: [id number] : 1955 Provider: KEMAR Keating Age/Sex: 69/M Location: [facility] Status: Signed HPI HPI History of Present Illness Details: Pleasant 69-year-old man that established with us for an elevated calcium score and abnormal stress test. He then underwent a diagnostic heart cath in 07/2024, this demonstrated severe two-vessel disease with high-grade stenosis noted of the mid right coronary artery and moderate left anterior descending artery stenosis with calcification. He underwent stenting to his mid RCA. Overall from a cardiac standpoint patient is doing well. He is recovering from influenza A. He does have some fatigue he is not sure if this is related to that. He does not have any chest pain, worsening shortness of breath. Does not have any lightheadedness and/or dizziness. He does not have any palpitations. He does not have any lower extremity edema. Intake Vital Signs 07/18/24 08:24 08/01/24 08:10 Height 5 ft 3 in 5 ft 8 in Weight: 142 lb BMI 21.6 BP 145/78 H Blood Pressure Location Lt brachial Position Sitting Respiration 18 Pulse 74 Pulse Source Monitor Pulse Oximetry (%) 100 Intake Visit Reasons: S/P [facility] 07/18 Neurobiologist Required: No Is patient in pain?: No Allergies hornet venom Allergy (Verified 08/01/24 08:58) Swelling venom-honey bee Allergy (Verified 08/01/24 08:58) Swelling Medications ???Medication ???Instructions ???Recorded ???Confirmed ???Type epinephrine 0.3 mg/0.3 mL 0.3 mg (0.3 mL) IM X1 #2 syringes 12/31/16 08/01/24 Rx injection, auto-injector ramipril 10 mg capsule 20 mg PO DAILY 12/31/16 08/01/24 H istory amlodipine 10 mg tablet (Norvasc) 10 mg PO DAILY 04/17/22 08/01/24 History aspirin 81 mg tablet,delayed 81 mg PO DAILY 04/17/22 08/01/24 H istory release (Adult Low Dose Aspirin) latanoprost 0.005 % eye drops 1 drp ophthalmic (eye) DAILY 04/1708/01/24 History omega 2-pvo-fkh-fish oil 300 1 cap PO DAILY 04/17/22 08/01/24 H istory mg-1,000 mg capsule (Fish Oil) psyllium husk 0.4 gram capsule 0.8 g PO DAILY 04/17/22 08/01/24 H istory (Daily Fiber) hydrochlorothiazide 12.5 mg tablet 12.5 mg PO DAILY 05/21/22 History multivitamin 1 tab PO DAILY 07/06/24 08/01/24 H istory timolol maleate 0.5 % eye drops drp ophthalmic (eye) control eye 0 07/06/24 08/01/24 History pressure atorvastatin 40 mg tablet 40 mg PO DAILY control colesterol 07/18/24 08/01/24 Rx #60 tabs clopidogrel 75 mg tablet (Plavix) 75 mg PO QDAY #90 tabs 07/18/24 0 08/01/24 Rx azithromycin 250 mg tablet See Rx Instructions PO .COMPLEX #6 08/01/24 08/01/24 Rx (Zithromax Z-Antonio) tabs Ejection fraction %: 65 Have you fallen in the past year?: No PFSH Medical History (Updated 08/01/24 @ 09:31 by Rohini Cuevas PA, PA) Arteriosclerotic cardiovascular disease (ASCVD) Elevated coronary artery calcium score Hyperlipidemia, unspecified Benign essential HTN Surgical History (Updated 07/18/24 @ 17:01 by Helga Cuellar) Stented coronary artery (07/18/24) History of removal of skin mole History of right knee surgery History of eye surgery History of colonoscopy Family History Brother Renal failure Leukemia Brother Throat cancer Father Lung cancer Mother Heart disease History of coronary artery bypass graft x 3, Onset Age: 51 Social History household members: spouse current occupational status: retired Smoking Status: Never smoker alcohol intake: current alcohol intake frequency: 0-2 drinks per day Alcohol type: beer ROS Const Const: Positive for fatigue, weakness and headache(s) ENT ENT: Positive for headache(s); Negative for balance problems Cardio Chest Pain: No Palpitations: No Edema: None Muscle aches with walking: None Resp Respiratory: Positive for Cough; Negative for SOB with activity, SOB at rest or SOB orthopnea SOB lying down Additional Details: tested positive flu last GI GI: Negative nausea, vomiting or heartburn Musc Musc: Negative for muscle aches/ myalgia, muscle weakness, joint pain or balance problems Neuro Neuro: Positive for headache(s) and weakness Endo Endo: Positive for fatigue Cardiology Exam Const Appearance: cooperative, no acute distress and well developed Orientation: alert, awake and oriented x3 Head Head: normocephalic and atraumatic Mouth: moist mucous membranes Eyes General: appearance normal, both eyes and all related structures (more content not included)... Normal [facility] CR - History AND Physicalon 07-21-2024 CR - History & Physical [facility] [address] [place] [address] CR - History Physical MR#: [id number] Acct: [id number] Name: DENYS SARGENT Rep #: [id number] : 1955 69 From: Hang Rogers BS, RVT PCP: Dr. Benjie Carlson MD DOS: 07/21/24 CR - History Physical General Arrival date:: 07/21/24 Arrival time:: 08:01 Date of Referral:: 07/18/24 Date of CR Evaluation:: 07/21/24 Referring Physician: Dr. Norris Primary Diagnosis: PCI with stent History of Present Cardiac Event Onset Date PTCA or coronary stenting:: Yes (07/18/24 onset) Medications Ambulatory Orders ???Medication ???Instructions ???Recorded epinephrine 0.3 mg/0.3 mL 0.3 mg (0.3 mL) IM X1 #2 syringes 12/31/16 injection, auto-injector ramipril 10 mg capsule 20 mg PO DAILY 12/31/16 amlodipine 10 mg tablet (Norvasc) 10 mg PO DAILY 04/17/22 aspirin 81 mg tablet,delayed 81 mg PO DAILY 04/17/22 release (Adult Low Dose Aspirin) latanoprost 0.005 % eye drops 1 drp ophthalmic (eye) DAILY 04/17 omega 0-gmy-ulo-fish oil 300 1 cap PO DAILY 04/17/22 mg-1,000 mg capsule (Fish Oil) psyllium husk 0.4 gram capsule 0.8 g PO DAILY 04/17/22 (Daily Fiber) hydrochlorothiazide 12.5 mg tablet 12.5 mg PO DAILY 05/21/22 multivitamin 1 tab PO DAILY 07/06/24 timolol maleate 0.5 % eye drops drp ophthalmic (eye) control eye 0 07/06/24 pressure atorvastatin 40 mg tablet 40 mg PO DAILY control colesterol 07/18/24 #60 tabs clopidogrel 75 mg tablet (Plavix) 75 mg PO QDAY #90 tabs 07/18/24 Allergies Allergies hornet venom Allergy (Verified 07/06/24 10:01) Swelling Has Epipen venom-honey bee Allergy (Verified 07/06/24 10:01) Swelling Has Epipen Sleep Disorder Evaluation Hx of Sleep Apnea: No Do you snore loudly (louder than talking or can be heard through closed doors)?: No Do you often feel tired/ fatigued/ sleepy during daytime?: No Has anyone observed you stop breathing during sleep?: No History of Hypertension (for STOP score): Yes STOP Results: Negative Advanced Directives Advanced Directives Power of Product Representative: Yes Living Will: Yes Advance Directives Information Provided: Yes Advance Directives on File: No DNR Order?:: No Past Medical History Covid-19 Screening Physicial Symptoms Other Clinical Concerns Exposure Risk Pertinent Comorbidities 65 years or older:: Yes Has a serious heart condition:: Yes Past Medical Illness Past Medical History Arteriosclerotic cardiovascular disease (ASCVD) I25.10 Elevated coronary artery calcium score R93.1 Hyperlipidemia, unspecified E78.5 Benign essential HTN I10 Past Surgical History Past Surgical History (Updated 07/18/24 @ 17:01 by Helga Cuellar) Stented coronary artery (07/18/24) Z95.5 2.75 X 22 mm Jacob Hinkle MANJIT to RCA History of removal of skin mole Z98.890, Z87.2 History of right knee surgery Z98.890 History of eye surgery Z98.890 History of colonoscopy Z98.890 Family History Summary Family History Brother Renal failure Leukemia Brother Throat cancer Father Lung cancer Mother Heart disease History of coronary artery bypass graft x 3, Onset Age: 51 Social History Smoking History Smoking Status: Never smoker Alcohol Use Alcohol Usage: Yes Substance Abuse Hx Substance Use: No Occupation Occupation (List type of work in comments):: Retired Social Environment Status Marital Status: Current Living Arrangements Living Environment:: Spouse Children How many children do you have?: 2 Do any of your children live nearby?: Yes Safety Do you feel safe in your surroundings?: Yes Assistance Do you need any assistance at home?: no Review of Systems Review of Systems Hints Review of Present Symptoms: Reports Appetite - Normal, Appetite - Special Diet and Sleep - Normal; Denies Shortness of Breath at Rest, Shortness of Breath with Exertion, PVD, Operative Discomfort, Angina, Wound Healing, Dizziness/Lightheadedness, Fatigue, Heart Arrhythmia/Irregularities or Sexual Changes Pain Is Patient Pain Free?: Yes Risk Factor Assessment Chief Complaint Chief Complaint: PCI with stent Vital Signs Pulse Ox: 100 Blood Pressure: 142/70 Pulse Pulse Rate: 55 Hypertension How long have you been treated?: 20 years Blood Pressure Sitting - Right Arm: 142/70 Obesity Height: 5 ft 8 in Weight:: 144 lb Weight in Pounds: 144.0 lbs Body Mass Index (BMI): 21.9 Nutritional Referral for Obesity: No Physical Inactivity Physical Inactivity: Reg Exercise 30 min/day Risk Stratification Risk Guidelines: Lowest Risk: Risk Factor for Smoking, Moderate Risk: Risk Factor for Diabetes, Risk Factor for Obesity, Risk Factor for Sedentary Lifestyle and Risk Factor for Depres (more content not included)... Normal [facility] Cardiac Cath Interventionon 07-20-2024 Cardiac Cath Intervention [facility] [address] [place] [address] Cardiac Cath Intervention MR#: [id number] Acct: [id number] Name: DENYS SARGENT Rep #: [id number] : 1955 69 From: James Norris MD PCP: Dr. Benjie Carlson MD Status:DEP [facility] Patient Name: DENYS SARGENT Study Date: 07/18/2024 Performing: Regan Zuñiga MD Ht: 63 inches 160.02 cm : 1955 Wt: 144.2 lbs 65.32 kg Age: 69 Gender: male BSA: 1.68 PROCEDURE(S) PERFORMED IC12-(02595/C9600)MANJIT W/WO PTCA, SINGLE CORONARY ARTERY CLINICAL PROFILE AND CO-MORBIDITIES Indications: Suspected CAD Heart Failure: None Stress/Imaging Coronary Calcium Score: Yes Calcium Score: 2300 Calcium Score: 2300 CAD Presentations: No Sxs, no angina. CONCLUSIONS Successful MANJIT to mRCA RECOMMENDATIONS DESCRIPTION OF PROCEDURE The patient arrived to the procedure lab. The risks and benefits of the procedure as well as a full description of our services here and current unavailability of surgical backup were fully explained to the patient and/or their significant other prior to the catheterization. The Timeout was completed, verifying the correct patient and procedure. The patient's procedural site was prepped and draped in the usual fashion. Local anesthetic was given subcutaneously to right radial region with Lidocaine 2% Using a modified Seldinger technique,arterial access was obtained via the right radial artery, a 6Fr sheath was inserted. Left Coronary Artery selective angiography was performed in multiple views using a 5 Fr. 4.0 [place] catheter. Right Coronary Artery selective angiography was then performed in multiple views using a 5 Fr. 4.0 [place] catheter. Left Ventriculography was performed in HAYES projection using a 5 Fr. Pigtail catheter. LV to AO pullback pressures were then recorded.The images were reviewed and options discussed. A decision was then made to proceed with an Intervention, IVUS or other adjunct procedure. AR 2 Guide catheter was inserted and engaged into the RCA. {L1} BMW Guide wire was advanced to the RCA. Angiogram performed pre balloon dilatation. EMERGE 2.5 X 15 Balloon catheter was inserted. Balloon catheter was advanced across lesion in the right coronary, mid. PTCA balloon inflated at 10 atms for 24 secs. PTCA balloon inflated at 10 atms for 20 secs. PTCA balloon inflated at 12 atms for 18 secs. PTCA balloon inflated at 12 atms for 12 secs. Angiogram performed post balloon dilatation. JACOB FRONTIER 2.75 X 22 Drug Eluting stent was inserted. Drug Eluting stent was advanced across the lesion in the right coronary, mid. Angiogram performed post stent deployment. The arterial sheath was pulled and a TR Band was applied for hemostasis 10 ml of air INTERVENTION INFORMATION LESION SITE: RCA (Mid) Lesion Complexity: High/C, chronic total occlusion: No, lesion at bifurcation: No, thrombus present: No, lesion length: 21 mm, culprit lesion: Yes, Previously treated lesion: No Pre Stenosis: 85 % Pre intervention LEROY flow: 3 PROCEDURE: Drug Eluting Stent with pre dilatation. Post Stenosis: 0 % Post intervention LEROY flow: 3 Lesion Devices: [place] .014 190cm BMW [place] Straight Cordis 6 Fr AR2 100cm Guide Catheter Jayme Sci EMERGE MR 2.50x15 BALLOON Medtronic 2.75 x 22 JACOB FRONTIER MANJIT COMPLICATIONS No Complications PROCEDURE MEDICATIONS Fentanyl 50 mcg IV Versed 1 mg IV Versed 1 mg IV Oxygen: 2 L/min via nasal cannula Brilinta 180 mg PO @ 07/18/2024 10:11:01 Heparin given IA 07/18/2024 09:24:05 Heparin 3000 unit(s) IV 07/18/2024 10:13:10 Plavix 300 mg PO 07/18/2024 16:36:55 Verapamil 2.5mg, Ntg 100mcgs, 3000 units of Heparin given IA 07/18/2024 09:24:05 SUMMARY OF HEMODYNAMIC DATA Time AIR REST ECG 08:25:45 AO 156/75 (107) SA 09:50:06 AO 123/66 (91) 09:52:24 LV 135/11, 22 09:56:55 LV 133/11, 21 09:57:00 LV 130/9, 22 09:57:29 LV 122/10, 22 09:57:38 LVp 126/9, 28 09:57:42 AOp 138/63 (95) 09:57:49 AO 139/63 (91) 10:14:24 AIR REST 10:14:33 Signed By Regan Zuñiga MD On 07/20/2024 11:58:47 Regan Zuñiga MD 07/20/24 1159 Date James Velázquezignsangeetha Signature: Date (if indicated) CC: Dr. Benjie Carlson MD; Dr. James Norris MD Date Dictated: 07/18/24920 Date Transcribed: 07/20/24 1158 Carbon Setter: CO Signed Normal [facility] Cardiac Cath Diagnosticon Cardiac Cath Diagnostic [facility] [address] [place] [address] Cardiac Cath Diagnostic MR#: [id number] Acct: [id number] Name: DENYS SARGENT Rep #: [id number] : 1955 69 From: James Norris MD PCP: Dr. Benjie Carlson MD Status:REG [facility] [place] Patient Name: DENYS SARGENT Study Date: 07/18/2024 Performing: James Norris MD Ht: 63 inches 160.02 cm : 1955 Wt: 144.01 lbs 65.32 kg Age: 69 Gender: male BSA: 1.68 PROCEDURE(S) PERFORMED DC01-(50884)LHC/COR/LV IC12-(07141/C9600)MANJIT W/WO PTCA, SINGLE CORONARY ARTERY CLINICAL PROFILE AND INDICATIONS Indications: Suspected CAD Heart Failure: None Stress/Imaging Coronary Calcium Score: Yes Calcium Score: 2300Calcium Score: 2300 CAD Presentations: No Sxs, no angina. CONCLUSIONS Severe two-vessel disease with high-grade stenosis noted of the mid right coronary artery and moderate left anterior descending artery stenosis with calcification. RECOMMENDATIONS Consider PCI to the right coronary artery and aggressively manage the rest of the vessels with medical therapy. DESCRIPTION OF PROCEDURE The patient arrived to the procedure lab. The risks and benefits of the procedure as well as a full description of our services here and current unavailability of surgical backup were fully explained to the patient and/or their significant other prior to the catheterization. The Timeout was completed, verifying the correct patient and procedure. The patient's procedural site was prepped and draped in the usual fashion. Local anesthetic was given subcutaneously to right radial region with Lidocaine 2%. Using a modified Seldinger technique, arterial access was obtained via the right radial artery, a 6Fr sheath was inserted. Left Coronary Artery selective angiography was performed in multiple views using a 5 Fr. 4.0 [place] catheter. Right Coronary Artery selective angiography was then performed in multiple views using a 5 Fr. 4.0 [place] catheter. Left Ventriculography was performed in HAYES projection using a 5 Fr. Pigtail catheter. LV to AO pullback pressures were then recorded. CORONARY ANGIOGRAPHY DOMINANCE: Right Dominant LEFT HEART ASSESSMENT Left Ventricular Ejection Fraction: by LV Gram 65 % Normal LV wall motion Normal Left Ventricular systolic function LEFT MAIN: Mild calcification, Mild luminal irregularities LEFT ANTERIOR DESCENDING ARTERY: Moderate calcification, Medium size vessel with 3 diagonal branches with no significant stenosis and calcification noted in the proximal and mid regions. At the takeoff of the third diagonal branch there is an area of stenosis of approximately 60 to 70%. CIRCUMFLEX ARTERY: Mild luminal irregularities less than 30% RIGHT CORONARY ARTERY: Dominant vessel with significant calcification in the midsegment irregular lesion of approximately 80%. The vessel then continues and gives of a posterior descending into posterolateral vessels with mild disease only. COMPLICATIONS PROCEDURE MEDICATIONS Fentanyl 50 mcg IV Versed 1 mg IV Versed 1 mg IV Oxygen: 2 L/min via nasal cannula Brilinta 180 mg PO @ 07/18/2024 10:11:01 Heparin given IA 07/18/2024 09:24:05 Heparin 3000 unit(s) IV 07/18/2024 10:13:10 Verapamil 2.5mg, Ntg 100mcgs, 3000 units of Heparin given IA 07/18/2024 09:24:05 SUMMARY OF HEMODYNAMIC DATA Time AIR REST ECG 08:25:45 AO 156/75 (107) SA 09:50:06 AO 123/66 (91) 09:52:24 LV 135/11, 22 09:56:55 LV 133/11, 21 09:57:00 LV 130/9, 22 09:57:29 LV 122/10, 22 09:57:38 LVp 126/9, 28 09:57:42 AOp 138/63 (95) 09:57:49 AO 139/63 (91) 10:14:24 10:14:33 Signed By James Norris MD On 07/18/2024 10:18:16 James Norris MD 07/18/24 1019 Date James Norris MD Cosigner Signature: Date (if indicated) CC: Dr. Benjie Carlson MD; Dr. James Norris MD Date Dictated: 07/18/24920 Date Transcribed: 07/18/248 Carbon Setter: CO Signed [place] [facility] 12 Lead EKG performed by [facility] [place] on 07-06-2024 12 Lead EKG performed by [address] [address] 12 Lead EKG performed by [facility] [place] 07/06/24954 MR#: [id number] Acct: [id number] Name: DENYS SARGENT Rep #: [id number] : 1955 69 From: James Norris MD Attending Dr: Dr. James Norris MD Status: DEP A MB Ordering Dr: James Norris MD Date: 07/06/24 [place] [facility] [place] C Admitted: [facility] [place]/12 Lead EKG performed by [facility] [place] ECG Report Interpretation Sinus Bradycardia -With rate variation cv = 12.Voltage criteria for LVH (S(V1)+R(V6) exceeds 3.50 mV) -Voltage criteria w/o ST/T abnormality may be normal. BORDERLINEElectronically signed on 07/06/2024 at 15:16 by James Norriswood Software Version [id number] 07/06/24 1521 Date James Norris MD CC: Dr. Benjie Carlson MD Date Dictated: 07/06/24954 Date Transcribed: 07/06/24954 Carbon Setter: CO Signed Normal [facility] Basic Metabolic Profile (BMP )on 07-06-2024 BUN/CRE 15.9 RATIO Normal 10-20 [facility] Comment on above: Performed By: #### L 100.0500, L500.2500 #### [facility] [address] [place], [address] CA,Total 9.3 mg/dL Normal 8.5-10.1 [facility] Comment on above: Performed By: #### L 100.0500, L500.2500 #### [facility] [address] [place], [address] Chloride [Moles/Vol] 102 mmol/L Normal 98-107 [facility] Comment on above: Performed By: #### L 100.0500, L500.2500 #### [facility] [address] [place], [address] CO2 [Moles/Vol] 31.0 mmol/L Normal 21.0-32.0 [facility] Comment on above: Performed By: #### L 100.0500, L500.2500 #### [facility] [address] [place], [address] Creatinine [Mass/Vol] 0.88 mg/dL Normal 0.70-1.30 [facility] Comment on above: Result Comment: The validity of the calculated GFR GFRAA in patients over 70 years has not been determined. Clinical correlation is essential. Performed By: #### L 100.0500, L500.2500 #### [facility] [address] [place], [address] EST GFR - AA 110 mL/min Normal >60 [facility] Comment on above: Result Comment: Afri can Lao GFR Calc Performed By: #### L 100.0500, L500.2500 #### [facility] [address] [place], [address] GAP 5 Normal 5-15 [facility] Comment on above: Performed By: #### L 100.0500, L500.2500 #### [facility] [address] [place], [address] GFR/1.73 sq M.predicted among non-blacks MDRD (S/P/Bld) [Vol rate/Area] 91 mL/min/{1.73_m2} Normal >60 [facility] Comment on above: Result Comment: Non- GFR Calc Performed By: #### L 100.0500, L500.2500 #### [facility] [address] [place], [address] Glucose [Mass/Vol] 105 mg/dL Normal 74-106 [facility] Comment on above: Result Comment: Fast ing Glucose result from 100 to 125 mg/dL suggests IMPAIRED HOMEOSTASIS per A.D.A. criteria. Performed By: #### L 100.0500, L500.2500 #### [facility] [address] [place], [address] Potassium [Moles/Vol] 3.8 mmol/L Normal 3.5-5.1 [facility] Comment on above: Performed By: #### L 100.0500, L500.2500 #### [facility] [address] [place], [address] Sodium [Moles/Vol] 139 mmol/L Normal 136-145 [facility] Comment on above: Performed By: #### L 100.0500, L500.2500 #### [facility] [address] [place], [address] Urea nitrogen [Mass/Vol] 14 mg/dL Normal 7-18 [facility] Comment on above: Performed By: #### L 100.0500, L500.2500 #### [facility] [address] [place], [address] Blood urea nitrogen (BUN)/cr eatinine ratioOrdered By: James Norris on 07-06-2024 Urea nitrogen/Creatinine [Mass ratio] 15.9 mg/mg 10-20 [facility] CBC-Complete Blood Cnt No Di ffon 07-06-2024 Erythrocyte distribution width (RBC) [Ratio] 14.9 % High 11.6-14.6 [facility] Comment on above: Performed By: #### L 100.0500, L500.2500 #### [facility] [address] [place], [address] Hematocrit (Bld) [Volume fraction] 37.4 % Low 40-54 [facility] Comment on above: Performed By: #### L 100.0500, L500.2500 #### [facility] [address] [place], [address] Hemoglobin (Bld) [Mass/Vol] 13.5 g/dL Normal 13.0-16.5 [facility] Comment on above: Performed By: #### L 100.0500, L500.2500 #### [facility] [address] [place], [address] MCH (RBC) [Entitic mass] 33.0 pg High 27.0-32.0 [facility] Comment on above: Performed By: #### L 100.0500, L500.2500 #### [facility] [address] [place], [address] MCHC (RBC) [Mass/Vol] 36.1 g/dL High 32-36 [facility] Comment on above: Performed By: #### L 100.0500, L500.2500 #### [facility] [address] [place], [address] MCV (RBC) [Entitic vol] 91.4 fL Normal 80-94 [facility] Comment on above: Performed By: #### L 100.0500, L500.2500 #### [facility] [address] [place], [address] Platelet mean volume (Bld) [Entitic vol] 10.0 fL Normal 6.2-12.0 [facility] Comment on above: Performed By: #### L 100.0500, L500.2500 #### [facility] [address] [place], [address] Platelets (Bld) [#/Vol] 197 10*3/uL Normal 150-450 [facility] Comment on above: Performed By: #### L 100.0500, L500.2500 #### [facility] [address] [place], [address] RBC (Bld) [#/Vol] 4.09 10*6/uL Low 4.6-6.2 [facility] Comment on above: Performed By: #### L 100.0500, L500.2500 #### [facility] [address] [place], [address] RDW SD 49.6 fl High 35.1-43.9 [facility] Comment on above: Performed By: #### L 100.0500, L500.2500 #### [facility] [address] [place], [address] WBC (Bld) [#/Vol] 6.2 10*3/uL Normal 4.4-11.0 [facility] Comment on above: Performed By: #### L 100.0500, L500.2500 #### [facility] [address] [place], [address] Carbon dioxide measurementOr dered By: James Norris on 07-06-2024 CO2 [Moles/Vol] 31.0 mmol/L 21.0-32.0 [facility] Cardiology Visit Reporton Cardiology Visit Report [facility] [address] [place] [address] OFFICE VISIT Date of Service: 07/06/24 MR#: [id number] Acct: [id number] Name: DENYS SARGENT Rep #: [id number] : 1955 Provider: Dr. James Norris MD Age/Sex: 69/M Location: [facility] [place] Status: Signed HPI HPI History of Present Illness Details: Pleasant 69-year-old man with no previous cardiac history but a family history of coronary artery disease who was told to go partake in a coronary calcium score which she did with a level of over 2000. He is otherwise very active denies any chest pain or shortness of breath or paroxysmal nocturnal dyspnea or pedal edema. He has had no neck arm or jaw discomfort suggest angina. As part of his workup he underwent a stress test after the calcium score where he exercised to a high metabolic workload. During early recovery however there was [address] depression noted in V5 and V6 which was suggestive but not diagnostic of ischemia. There was a short run of atrial fibrillation noted post testing. His coronary artery calcification demonstrated thousand and 42 Agatston units in the LAD and at thousand 176 units in the right coronary artery. He previously was on a statin and that has been increased his lipid profile demonstrates a total cholesterol of 171 and HDL of 88 and an LDL of 71. His physical exam is otherwise unremarkable his electrocardiogram demonstrates sinus bradycardia with a rate of 54 bpm. Intake Vital Signs 05/23/22 07:17 07/06/24 09:54 Height 5 ft 9 in 5 ft 9 in Weight: 144 lb BMI 21.2 BP 150/61 H Blood Pressure Location Lt brachial Position Sitting Respiration 16 Pulse 59 L Pulse Source Monitor Intake Visit Reasons: ABN CCTA (Robyn) Neurobiologist Required: No Accompanied by: Significant Other Is patient in pain?: No Allergies hornet venom Allergy (Verified 07/06/24 10:01) Swelling venom-honey bee Allergy (Verified 07/06/24 10:01) Swelling Medications ???Medication ???Instructions ???Recorded ???Confirmed ???Type epinephrine 0.3 mg/0.3 mL 0.3 mg (0.3 mL) IM X1 #2 syringes 12/31/16 07/06/24 Rx injection, auto-injector ramipril 10 mg capsule 20 mg PO DAILY 12/31/16 07/06/24 History amlodipine 10 mg tablet (Norvasc) 10 mg PO DAILY 04/17/22 07/06/24 History aspirin 81 mg tablet,delayed 81 mg PO DAILY 04/17/22 07/06/24 History release (Adult Low Dose Aspirin) latanoprost 0.005 % eye drops 1 drp ophthalmic (eye) DAILY 04/17/22 07/06/24 History omega 5-ufr-isw-fish oil 300 1 cap PO DAILY 04/17/22 07/06/24 History mg-1,000 mg capsule (Fish Oil) psyllium husk 0.4 gram capsule 0.8 g PO DAILY 04/17/22 07/06/24 History (Daily Fiber) hydrochlorothiazide 12.5 mg tablet 12.5 mg PO DAILY 05/21/22 07/06/24 History atorvastatin 20 mg tablet 20 mg PO DAILY control colesterol 07/06/24 07/06/24 History multivitamin 1 tab PO DAILY PRN 07/06/24 07/06/24 History timolol maleate 0.5 % eye drops drp ophthalmic (eye) control eye 07/06/24 07/06/24 History pressure Have you fallen in the past year?: No PFSH Medical History Arteriosclerotic cardiovascular disease (ASCVD) Elevated coronary artery calcium score Hyperlipidemia, unspecified Benign essential HTN Surgical History History of removal of skin mole History of right knee surgery History of eye surgery History of colonoscopy Family History Brother Renal failure Leukemia Brother Throat cancer Father Lung cancer Mother Heart disease History of coronary artery bypass graft x 3, Onset Age: 51 Social History household members: spouse current occupational status: retired Smoking Status: Never smoker alcohol intake: current alcohol intake frequency: 0-2 drinks per day Alcohol type: beer ROS Const Const: Negative for fatigue, weakness, headache(s), daytime sleepiness or difficulty sleeping ENT ENT: Negative for headache(s), dizziness or Nosebleed/epistaxis Cardio Chest Pain: Yes Frequency: other (once in awhile) Character: other (discomfort) Onset: other (at any time) Location: mid sternal and left chest Duration: brief Palpitations: Yes (with stress test (Afib)) Edema: None Resp Respiratory: Negative for SOB with activity, SOB at rest, SOB orthopnea SOB lying down or Cough GI GI: Negative nausea, vomiting or heartburn Neuro Neuro: Negative for dizziness, lightheadedness, near syncope, headache(s) or weakness Endo Endo: Negative for fatigue Cardiology Exam Const Appearance: cooperative, healthy appearing, no acute distress, well developed and well g (more content not included)... Normal [facility] Chloride measurementOrdered By: James Norris on 07-06-2024 Chloride [Moles/Vol] 102 mmol/L 98-107 [facility] Erythrocyte distribution wid th ratioOrdered By: James Norris on 07-06-2024 Erythrocyte distribution width (RBC) [Ratio] 14.9 % High 11.6-14.6 [facility] Erythrocyte distribution wid th standard deviationOrdered By: James Norris on 07-06-2024 Erythrocyte distribution width (RBC) [Entitic vol] 49.6 fL High 35.1-43.9 [facility] Estimated glomerular filtrat ion rate (GFR) AmericanOrdered By: James Norris on 07-06-2024 Estimated GFR (MDRD) Amer 110 mL/min >60 [facility] Comment on above: GFR Calc Glomerular filtration rate ( GFR) estimationOrdered By: James Norris on 07-06-2024 Estimated GFR (MDRD) Non-Af Amer 91 mL/min >60 [facility] Comment on above: Non- GFR Calc Glucose measurementOrdered B y: James Norris on 07-06-2024 Glucose [Mass/Vol] 105 mg/dL 74-106 [facility] Comment on above: Fasting Glucose resu lt from 100 to 125 mg/dL suggests IMPAIRED HOMEOSTASIS per A.D.A. criteria. Hematocrit Auto (Bld) [Volum e fraction]Ordered By: James Norris on 07-06-2024 Hematocrit (Bld) [Volume fraction] 37.4 % Low 40-54 [facility] Hemoglobin measurementOrdere d By: James Myrna on 07-06-2024 Hemoglobin (Bld) [Mass/Vol] 13.5 g/dL 13.0-16.5 [facility] MCV (mean corpuscular volume ) determinationOrdered By: [place] Myrna on 07-06-2024 MCV (RBC) [Entitic vol] 91.4 fL 80-94 [facility] Mean corpuscular hemoglobin (MCH) determinationOrdered By: [place] Myrna on 07-06-2024 MCH (RBC) [Entitic mass] 33.0 pg High 27.0-32.0 [facility] Mean corpuscular hemoglobin concentration (MCHC) determinationOrdered By: James Myrna on 07-06-2024 MCHC (RBC) [Mass/Vol] 36.1 g/dL High 32-36 [facility] Mean platelet volume determi nationOrdered By: [place] Myrna on 07-06-2024 Platelet mean volume (Bld) [Entitic vol] 10.0 fL 6.2-12.0 [facility] Platelet countOrdered By: Cy ril Myrna on 07-06-2024 Platelets (Bld) [#/Vol] 197 10*3/uL 150-450 [facility] Potassium measurementOrdered By: James Myrna on 07-06-2024 Potassium [Moles/Vol] 3.8 mmol/L 3.5-5.1 [facility] RBC Auto (Bld) [#/Vol]Ordere d By: [place] Myrna on 07-06-2024 RBC (Bld) [#/Vol] 4.09 10*6/uL Low 4.6-6.2 [facility] Serum anion gap measurementO rdered By: [place] Myrna on 07-06-2024 Anion gap [Moles/Vol] 5 mmol/L 5-15 [facility] Serum or plasma calcium tiesha urement (mass/volume)Ordered By: James Myrna on 07-06-2024 Calcium [Mass/Vol] 9.3 mg/dL 8.5-10.1 [facility] Serum or plasma creatinine m easurement (mass/volume)Ordered By: James Norris on 07-06-2024 Creatinine [Mass/Vol] 0.88 mg/dL 0.70-1.30 [facility] Comment on above: The validity of the calculated GFR & GFRAA in patients over 70 years has not been determined. Clinical correlation is essential. Serum or plasma urea nitroge n measurement (mass/volume)Ordered By: James Norris on 07-06-2024 Urea nitrogen [Mass/Vol] 14 mg/dL 7-18 [facility] Sodium levelOrdered By: Mariano Norris on 07-06-2024 Sodium [Moles/Vol] 139 mmol/L 136-145 [facility] White blood cell (WBC) count Ordered By: James Norris on 07-06-2024 WBC (Bld) [#/Vol] 6.2 10*3/uL 4.4-11.0 [facility] Stress Reporton 05-18-2024 Stress Report [facility] [address] [place] [address] MR#: [id number] Acct: [id number] Name: DENYS SARGENT Rep #: [id number] : 1955 69 From: James Norris MD Primary Care: Dr. Benjie Carlson MD Status: REG CLI Referring Dr: Benjie Carlson MD Sex: M C Stress Test Report Exercise myocardial perfusion stress test. 69-year-old man with an abnormal calcium score Stress protocol: Resting EKG demonstrates normal sinus rhythm with a rate of 59 bpm resting blood pressure is 152/76 mmHg. The patient exercised according to the regular Idris protocol for a total duration of 10 minutes attaining a maximum heart rate of 176 bpm which was 117 of maximum predicted heart rate; the maximum workload was 13.4 metabolic equivalents. At rest there were no ST or T wave changes noted to suggest ischemia and at peak exercise upsloping ST changes were noted which were suggestive but not diagnostic of ischemia. During early recovery there was approximately [address] depression noted in V5 and V6. No clinical angina was noted the test was terminated due to the target heart rate being achieved/fatigue. The peak blood pressure was 174/76 mmHg. Rate-pressure product was 23,300. Myocardial perfusion protocol. 11.8 mCi of technetium 99m sestamibi was injected at rest. The patient exercised according to regular Idris protocol for total duration of 10 minutes and at peak exercise 34.3 mCi of technetium 99m sestamibi was injected stress images were obtained stress and rest images were reconstructed in comparing the short axis vertical long and horizontal long axis. Gated images were also obtained. Perfusion SPECT analysis: Review of the stress images demonstrate normal uptake of tracer noted in all areas of the myocardium. The resting images similarly demonstrate normal uptake of tracer noted in all areas of the myocardium. No areas of reversibility are noted to suggest ischemia no previous infarct was noted. Gated SPECT analysis: The gated ejection fraction is 59%. Conclusion: Normal exercise myocardial perfusion stress test at a high workload Preserved ejection fraction. Suggestive but nondiagnostic EKG changes 05/18/241623 Date James Norris MD CC: Dr. Benjie Carlson MD Date Dictated: 05/18/241619 Date Transcribed: 05/18/241619 Carbon Setter: CO Signed Normal [facility] CT CARDIAC SCORING WO IV CON TRASTon 04-11-2024 CT CARDIAC SCORING WO IV CONTRAST Interpreted By: Nba Griffiths, STUDY: CT CARDIAC SCORING WO IV CONTRAST; 04/11/2024 7:35 am INDICATION: Signs/Symptoms:BENIGN ESSENTIAL HTN. ,I10 Essential (primary) hypertension COMPARISON: None. ACCESSION NUMBER(S): [id number] ORDERING CLINICIAN: BENJIE CARLSON TECHNIQUE: Using prospective ECG gating, CT scan of the coronary arteries was performed without intravenous contrast. Coronary calcium scoring was performed according to the method of Agatston. FINDINGS: The score and distribution of calcium in the coronary arteries is as follows: LM 0 LAD 1042.31 LCx 85.6 RCA 1176.54 Total 2304.45 The visualized mid/lower ascending thoracic aorta measures 3.2 cm in diameter. The heart is normal in size. No pericardial effusion is present. No gross evidence of mediastinal or hilar lymphadenopathy or masses is identified. The visualized segments of the lungs are normally expanded. The visualized subdiaphragmatic structures appear intact. IMPRESSION: 1. Coronary artery calcium score of 2304.45*. *Coronary artery calcium scoring may be helpful in predicting the risk for future coronary heart disease events. According to the [employer] Clinical Expert Consensus Task Force, such testing provides important prognostic information in patients with more than one coronary heart disease risk factor. The coronary artery calcium score correlates with the annual risk of a non-fatal myocardial infarction or coronary heart disease . Coronary artery score Annual Risk 0-99 0.4% 100-399 1.3% >400 2.4% These three breakpoints correspond to lower, intermediate and high risk states for future coronary events. Such information should be used, along with appropriate clinical judgment, to make decisions regarding the intensity of risk factor management strategies to treat blood lipids and to modify other non-lipid coronary risk factors. Reference: Liz P et al. Circulation. 2007; 115:402-426 MACRO: None Signed by: Nba Griffiths 04/12/2024 4:09 PM Dictation workstation: [id number] [facility] Comment on above: Order Comment: ONCARYNS Junior Comprehensive Metabolic Prof ctdulce 03-10-2024 Albumin [Mass/Vol] 4.2 g/dL Normal 3.2-5.0 [facility] Comment on above: Performed By: #### L 501.9910, L500.4050, L500.4100 #### [facility] [address] [place], [address] Albumin/Globulin [Mass ratio] 1.3 {ratio} Normal 0.9-2.4 [facility] Comment on above: Performed By: #### L 501.9910, L500.4050, L500.4100 #### [facility] [address] [place], [address] ALK P 58 U/L Normal 45-117 [facility] Comment on above: Performed By: #### L 501.9910, L500.4050, L500.4100 #### [facility] [address] [place], [address] ALT [Catalytic activity/Vol] 26 U/L Normal 16-61 [facility] Comment on above: Performed By: #### L 501.9910, L500.4050, L500.4100 #### [facility] [address] [place], [address] AST [Catalytic activity/Vol] 19 U/L Normal 15-37 [facility] Comment on above: Performed By: #### L 501.9910, L500.4050, L500.4100 #### [facility] [address] [place], [address] Bilirubin [Mass/Vol] 2.10 mg/dL High 0.20-1.00 [facility] Comment on above: Result Comment: For patients on eltrombopag therapy, use of Dimension Rena Lara TBIL is not recommended. Performed By: #### L 501.9910, L500.4050, L500.4100 #### [facility] [address] [place], [address] BUN/CRE 15.1 RATIO Normal 10-20 [facility] Comment on above: Performed By: #### L 501.9910, L500.4050, L500.4100 #### [facility] [address] [place], [address] CA,Total 9.5 mg/dL Normal 8.5-10.1 [facility] Comment on above: Performed By: #### L 501.9910, L500.4050, L500.4100 #### [facility] [address] [place], [address] Chloride [Moles/Vol] 103 mmol/L Normal 98-107 [facility] Comment on above: Performed By: #### L 501.9910, L500.4050, L500.4100 #### [facility] [address] [place], [address] CO2 [Moles/Vol] 30.0 mmol/L Normal 21.0-32.0 [facility] Comment on above: Performed By: #### L 501.9910, L500.4050, L500.4100 #### [facility] [address] [place], [address] Creatinine [Mass/Vol] 0.93 mg/dL Normal 0.70-1.30 [facility] Comment on above: Result Comment: The validity of the calculated GFR GFRAA in patients over 70 years has not been determined. Clinical correlation is essential. Performed By: #### L 501.9910, L500.4050, L500.4100 #### [facility] [address] [place], [address] EST GFR - AA 104 mL/min Normal >60 [facility] Comment on above: Result Comment: Afri can Lao GFR Calc Performed By: #### L 501.9910, L500.4050, L500.4100 #### [facility] [address] [place], [address] GAP 4 Low 5-15 [facility] Comment on above: Performed By: #### L 501.9910, L500.4050, L500.4100 #### [facility] [address] [place], [address] GFR/1.73 sq M.predicted among non-blacks MDRD (S/P/Bld) [Vol rate/Area] 86 mL/min/{1.73_m2} Normal >60 [facility] Comment on above: Result Comment: Non- GFR Calc Performed By: #### L 501.9910, L500.4050, L500.4100 #### [facility] [address] [place], [address] Globulin (S) [Mass/Vol] 3.2 g/dL Normal 2.2-4.2 [facility] Comment on above: Performed By: #### L 501.9910, L500.4050, L500.4100 #### [facility] [address] [place], [address] Glucose [Mass/Vol] 112 mg/dL High 74-106 [facility] Comment on above: Result Comment: Fast ing Glucose result from 100 to 125 mg/dL suggests IMPAIRED HOMEOSTASIS per A.D.A. criteria. Performed By: #### L 501.9910, L500.4050, L500.4100 #### [facility] [address] [place], [address] Potassium [Moles/Vol] 3.9 mmol/L Normal 3.5-5.1 [facility] Comment on above: Performed By: #### L 501.9910, L500.4050, L500.4100 #### [facility] [address] [place], [address] Sodium [Moles/Vol] 137 mmol/L Normal 136-145 [facility] Comment on above: Performed By: #### L 501.9910, L500.4050, L500.4100 #### [facility] [address] [place], [address] T PROT 7.4 g/dL Normal 6.4-8.2 [facility] Comment on above: Performed By: #### L 501.9910, L500.4050, L500.4100 #### [facility] [address] [place], [address] Urea nitrogen [Mass/Vol] 14 mg/dL Normal 7-18 [facility] Comment on above: Performed By: #### L 501.9910, L500.4050, L500.4100 #### [facility] [address] [place], [address] Lipid Profileon 03-10-2024 Cholesterol [Mass/Vol] 171 mg/dL Normal 200 [facility] Comment on above: Result Comment: <200 mg/dL Desirable 200-240 mg/dL Borderline >240 mg/dL High Risk Performed By: #### L 501.9910, L500.4050, L500.4100 #### [facility] [address] [place], [address] Cholesterol in HDL [Mass/Vol] 88 mg/dL Normal [facility] Comment on above: Result Comment: The drugs N-Acetylcysteine and Metamizole may falsely depress this assay. Reference Range HDL <40 mg/dL Low HDL Cholesterol HDL >or= 60 mg/dL High HDL Cholesterol Performed By: #### L 501.9910, L500.4050, L500.4100 #### [facility] [address] [place], [address] Cholesterol in LDL [Mass/Vol] 71 mg/dL Normal 0-130 [facility] Comment on above: Performed By: #### L 501.9910, L500.4050, L500.4100 #### [facility] [address] [place], [address] Cholesterol in VLDL [Mass/Vol] 12 mg/dL Normal 5-40 [facility] Comment on above: Performed By: #### L 501.9910, L500.4050, L500.4100 #### [facility] [address] [place], [address] Triglyceride [Mass/Vol] 59 mg/dL Normal [facility] Comment on above: Result Comment: The drugs N-Acetylcysteine and Metamizole may falsely depress this assay. Serum Triglycerides Reference Interval Normal <150 mg/dL Borderline high 150 - 199 mg/dL High 200 - 499 mg/dL Very High > or = 500 mg/dL Performed By: #### L 501.9910, L500.4050, L500.4100 #### [facility] [address] [place], [address] PSA,Total - Annual Screenon 03-10-2024 PSA,TOT SCREEN 1.13 ng/mL Normal 0.00-4.00 [facility] Comment on above: Result Comment: This test was performed using the TPSA assay method for the [employer] chemistry system. Values obtained with different assay methods cannot be used interchangably. When changing PSA assays in the course of monitoring a patient, additional sequential testing should be carried out to confirm baseline values. Performed By: #### L 501.9910, L500.4050, L500.4100 #### [facility] [address] [place], [address] Basophil percentageOrdered B y: Kenny Carlson on 02-12-2023 Bilirubin [Mass/Vol] 1.40 mg/dL 0.20-1.00 [facility] Comment on above: For patients on eltr ombopag therapy, use of Dimension Rena Lara TBIL is not recommended. Chloride [Moles/Vol] 105 mmol/L 98-107 [facility] Cholesterol [Mass/Vol] 157 mg/dL <200 [facility] Comment on above: <200 mg/dL Desirable 200-240 mg/dL Borderline >240 mg/dL High Risk Glucose [Mass/Vol] 107 mg/dL 74-106 [facility] Comment on above: Fasting Glucose resu lt from 100 to 125 mg/dL suggests IMPAIRED HOMEOSTASIS per A.D.A. criteria. Potassium [Moles/Vol] 3.9 mmol/L 3.5-5.1 [facility] Protein [Mass/Vol] 7.1 g/dL 6.4-8.2 [facility] Sodium [Moles/Vol] 139 mmol/L 136-145 [facility] Triglyceride [Mass/Vol] 69 mg/dL <199 [facility] Comment on above: The drugs N-Acetylcy steine and Metamizole may falsely depress this assay.Serum Triglycerides Reference Interval Normal <150 mg/dL Borderline high 150 - 199 mg/dL High 200 - 499 mg/dL Very High > or = 500 mg/dL Laboratory - Chemistry and C hemistry - challengeOrdered By: Kenny Carlson on 02-12-2023 ALP [Catalytic activity/Vol] 62 U/L 45-117 [facility] ALT [Catalytic activity/Vol] 37 U/L 16-61 [facility] CO2 [Moles/Vol] 29.0 mmol/L 21.0-32.0 [facility] Globulin (S) [Mass/Vol] 3.2 g/dL 2.2-4.2 [facility] Urea nitrogen/Creatinine [Mass ratio] 14.9 mg/mg 10-20 [facility] No Panel InformationOrdered By: Kenny Carlson on 02-12-2023 Estimated GFR (MDRD) Amer 112 mL/min >60 [facility] Comment on above: GFR Calc Estimated GFR (MDRD) Non-Af Amer 92 mL/min >60 [facility] Comment on above: Non- GFR Calc Prostate Specific Antigen Screen 1.26 ng/mL 0.00-4.00 [facility] Comment on above: This test was perfor med using the TPSA assay method for [email or web address] chemistry system. Values obtained with differentassay methods cannot be used interchangably.When changing PSA assays in the course of monitoring apatient, additional sequential testing should be carriedout to confirm baseline values. Serum or plasma albumin tiesha urement (mass/volume)Ordered By: Kenny Carlson on 02-12-2023 Albumin [Mass/Vol] 3.9 g/dL 3.2-5.0 [facility] Serum or plasma albumin/glob ulin mass ratioOrdered By: Kenny Carlson on 02-12-2023 Albumin/Globulin [Mass ratio] 1.2 {ratio} 0.9-2.4 [facility] Serum or plasma calcium tiesha urement (mass/volume)Ordered By: Kenny Carlson on 02-12-2023 Calcium [Mass/Vol] 9.0 mg/dL 8.5-10.1 [facility] Serum or plasma cholesterol in HDL measurement (mass/volume)Ordered By: Kenny Carlson on 02-12-2023 Cholesterol in HDL [Mass/Vol] 72 mg/dL >40 [facility] Comment on above: The drugs N-Acetylcy steine and Metamizole may falsely depress this assay. Reference Range HDL <40 mg/dL Low HDL Cholesterol HDL >or= 60 mg/dL High HDL Cholesterol Serum or plasma cholesterol in VLDL measurement (mass/volume)Ordered By: Kenny Carlson on 02-12-2023 Cholesterol in VLDL [Mass/Vol] 14 mg/dL 5-40 [facility] Serum or plasma creatinine m easurement (mass/volume)Ordered By: Kenny Carlson on 02-12-2023 Creatinine [Mass/Vol] 0.87 mg/dL 0.70-1.30 [facility] Comment on above: The validity of the calculated GFR & GFRAA in patients over 70 years has not been determined. Clinical correlation is essential. Serum or plasma low density lipoprotein (LDL) cholesterol measurement (mass/volume)Ordered By: Kenny Carlson on 02-12-2023 Cholesterol in LDL [Mass/Vol] 71 mg/dL 0-130 [facility] Serum or plasma urea nitroge n measurement (mass/volume)Ordered By: Kenny Carlson on 02-12-2023 Urea nitrogen [Mass/Vol] 13 mg/dL 7-18 [facility] Thin prep Papanicolaou smear with manual screeningOrdered By: Kenny Carlson on 02-12-2023 Thin prep Papanicolaou smear with manual screening 22 U/L 15-37 [facility] Thin prep Papanicolaou smear with manual screening 5 5-15 [facility] Basophil percentageon 2021 Bilirubin [Mass/Vol] 1.60 mg/dL 0.20-1.00 [facility] Work Phone: Comment on above: For patients on eltr ombopag therapy, use of Dimension Rena Lara TBIL is not recommended. Chloride [Moles/Vol] 106 mmol/L 98-107 [facility] Work Phone: Cholesterol [Mass/Vol] 147 mg/dL <200 [facility] Work Phone: Comment on above: <200 mg/dL Desirable 200-240 mg/dL Borderline >240 mg/dL High Risk Glucose [Mass/Vol] 104 mg/dL 74-106 [facility] Work Phone: Comment on above: Fasting Glucose resu lt from 100 to 125 mg/dL suggests IMPAIRED HOMEOSTASIS per A.D.A. criteria. Potassium [Moles/Vol] 3.5 mmol/L 3.5-5.1 [facility] Work Phone: Protein [Mass/Vol] 6.7 g/dL 6.4-8.2 [facility] Work Phone: Sodium [Moles/Vol] 142 mmol/L 136-145 [facility] Work Phone: Triglyceride [Mass/Vol] 71 mg/dL <199 [facility] Work Phone: Comment on above: The drugs N-Acetylcy steine and Metamizole may falsely depress this assay.Serum Triglycerides Reference Interval Normal <150 mg/dL Borderline high 150 - 199 mg/dL High 200 - 499 mg/dL Very High > or = 500 mg/dL Laboratory - Chemistry and C hemistry - challengeon 02-12-2022 ALP [Catalytic activity/Vol] 53 U/L 45-117 [facility] Work Phone: ALT [Catalytic activity/Vol] 29 U/L 16-61 [facility] Work Phone: CO2 [Moles/Vol] 29.0 mmol/L 21.0-32.0 [facility] Work Phone: Globulin (S) [Mass/Vol] 3.0 g/dL 2.2-4.2 [facility] Work Phone: Urea nitrogen/Creatinine [Mass ratio] 16.1 mg/mg 10-20 [facility] Work Phone: No Panel Informationon 02-12 Estimated GFR (MDRD) Amer 104 mL/min >60 [facility] Work Phone: Comment on above: GFR Calc Estimated GFR (MDRD) Non-Af Amer 86 mL/min >60 [facility] Work Phone: Comment on above: Non- GFR Calc Prostate Specific Antigen Screen 0.84 ng/mL 0.00-4.00 [facility] Work Phone: Comment on above: This test was perfor med using the TPSA assay method for the[employer] chemistry system. Values obtained with differentassay methods cannot be used interchangably.When changing PSA assays in the course of monitoring apatient, additional sequential testing should be carriedout to confirm baseline values. Serum or plasma albumin tiesha urement (mass/volume)on 02-12-2022 Albumin [Mass/Vol] 3.7 g/dL 3.2-5.0 [facility] Work Phone: Serum or plasma albumin/glob ulin mass ratioon 02-12-2022 Albumin/Globulin [Mass ratio] 1.2 {ratio} 0.9-2.4 [facility] Work Phone: Serum or plasma calcium tiesha urement (mass/volume)on 02-12-2022 Calcium [Mass/Vol] 8.8 mg/dL 8.5-10.1 [facility] Work Phone: Serum or plasma cholesterol in HDL measurement (mass/volume)on 02-12-2022 Cholesterol in HDL [Mass/Vol] 67 mg/dL >40 [facility] Work Phone: Comment on above: The drugs N-Acetylcy steine and Metamizole may falsely depress this assay. Reference Range HDL <40 mg/dL Low HDL Cholesterol HDL >or= 60 mg/dL High HDL Cholesterol Serum or plasma cholesterol in VLDL measurement (mass/volume)on 02-12-2022 Cholesterol in VLDL [Mass/Vol] 14 mg/dL 5-40 [facility] Work Phone: Serum or plasma creatinine m easurement (mass/volume)on 02-12-2022 Creatinine [Mass/Vol] 0.93 mg/dL 0.70-1.30 [facility] Work Phone: Comment on above: The validity of the calculated GFR & GFRAA in patients over 70 years has not been determined. Clinical correlation is essential. Serum or plasma low density lipoprotein (LDL) cholesterol measurement (mass/volume)on 02-12-2022 Cholesterol in LDL [Mass/Vol] 66 mg/dL 0-130 [facility] Work Phone: Serum or plasma urea nitroge n measurement (mass/volume)on 02-12-2022 Urea nitrogen [Mass/Vol] 15 mg/dL 7-18 [facility] Work Phone: Thin prep Papanicolaou smear with manual screeningon 02-12-2022 Thin prep Papanicolaou smear with manual screening 18 U/L 15-37 [facility] Work Phone: Thin prep Papanicolaou smear with manual screening 7 5-15 [facility] Work Phone: Office Visit: UC: anaphylaxi s (lips/ tongue)on 12-31-2016 Documentation of current medications (procedure) Done Invalid Interpretation Code [facility] Work Phone: [phone] Protein mass conc Done [facility] Work Phone: [phone] Tobacco smoking status NHIS Never Invalid Interpretation Code [facility] Work Phone: [phone] Tobacco smoking status NHIS Never smoker [facility] Work Phone: [phone] Tobacco use [facility] Never smoker Invalid Interpretation Code [facility] Work Phone: Lab Report: CBCDon 04-01-201 1 Erythrocytes (RBC) 4.27 10*6/uL Low 4.6-6.2 [facility] Work Phone: [phone] Hematocrit (HCT) 40.1 % Normal 40-54 [facility] Work Phone: [phone] Hematocrit Volume Fraction (Bld) 40.1 % Normal 40-54 [facility] Work Phone: [phone] Hemoglobin mass conc (Bld) 14.2 g/dL Normal 14.0-18.0 [facility] Work Phone: [phone] Platelets 173 10*3/mm3 Normal 150-450 [facility] Work Phone: [phone] Platelets #/vol (Bld) 173 10*3/mm3 Normal 150-450 [facility] Work Phone: [phone] RBC #/vol (Bld) 4.27 10*6/uL Low 4.6-6.2 [facility] Work Phone: [phone] WBC #/vol (Bld) 5.7 10*3/uL Normal 4.4-11.0 [facility] Work Phone: [phone] WBC (Leukocytes) 5.7 10*3/uL Normal 4.4-11.0 [facility] Work Phone: Lab Report: LIPIDon 04-01-20 11 Cholesterol in HDL mass conc 60 mg/dL Normal [facility] Work Phone: [phone] Cholesterol in LDL mass conc 83 mg/dL Normal 0-130 [facility] Work Phone: [phone] Cholesterol mass conc 154 mg/dL Normal 200 [facility] Work Phone: [phone] Lipoprotein.pre-beta mass conc 11 mg/dL Normal 5-40 [facility] Work Phone: [phone] Triglyceride mass conc 57 mg/dL Normal [facility] Work Phone: Lab Report: LIVERon 04-01-20 11 Albumin mass conc 4.4 g/dL Normal 3.4-5.0 [facility] Work Phone: [phone] Alkaline phosphatase (ALP) 55 U/L Normal 50-136 [facility] Work Phone: [phone] ALP enzyme act/vol (Bld) 55 U/L Normal 50-136 [facility] Work Phone: [phone] ALT enzyme act/vol 33 U/L Normal 12-78 [facility] Work Phone: AST enzyme act/vol 24 U/L Normal 15-37 [facility] Work Phone: [phone] Bilirubin mass conc 1.80 mg/dL High 0.00-1.00 [facility] Work Phone: [phone] Bilirubin.direct mass conc 0.38 mg/dL High 0.00-0.30 [facility] Work Phone: [phone] GE use only - for [employer] import when terms are not otherwise specified 7.5 g/dL Normal 6.4-8.2 [facility] Work Phone: [phone] TPROT 7.5 g/dL Normal 6.4-8.2 [facility] Work Phone: Lab Report: PSAon 04-01-2011 prostate specific antigen (PSA) screening 0.5 ng/mL Normal 0.0-4.0 [facility] Work Phone: Protein mass conc 0.5 ng/mL Normal 0.0-4.0 [facility] Work Phone: Office Visit: follow upon Hemoglobin.gastrointes tinal Ql (St) Positive Invalid Interpretation Code [facility] Work Phone: Lab Report: CMPon 2010 Calcium mass conc 8.8 mg/dL Normal 8.5-10.1 [facility] Work Phone: Chloride molar conc 104 mmol/L Normal 98-107 [facility] Work Phone: Creatinine mass conc 1.0 mg/dL Normal 0.8-1.3 [facility] Work Phone: Glucose 99 mg/dL Normal 70-110 [facility] Work Phone: Glucose mass conc 99 mg/dL Normal 70-110 [facility] Work Phone: Potassium molar conc 4.2 mmol/L Normal 3.5-5.1 [facility] Work Phone: Sodium molar conc 141 mmol/L Normal 136-145 [facility] Work Phone: Urea nitrogen mass conc 16 mg/dL Normal 7-18 [facility] Work Phone: Lab Report: T4on 2010 T4 mass conc 6.7 ug/dL Normal 4.5-12.1 [facility] Work Phone: Lab Report: TSHon 2010 Thyrotropin Qn 2.65 u[iU]/mL Normal 0.358-3.74 [facility] Work Phone: Vital Signs Date Time Vital Sign Value Performing Clinician Kimberli aguirre 10-14-2024 07:08-0400 Body height 172.[address] Benjie Carlson MD Work Phone: [facility] 10-14-2024 07:08-0400 Body weight 64.[address] Benjie Carlson MD Work Phone: [facility] 09-16-2024 08:31-0400 Body weight 64.[address] Benjie Carlson MD Work Phone: [facility] 08-18-2024 08:16-0400 Body height 172.[address] Benjie Carlson MD Work Phone: [phone] [place] [address] 08-18-2024 08:16-0400 Body weight 64.[address] Benjie Carlson MD Work Phone: [phone])772-077810 [place] [address] 08-01-2024 08:10-0500 Body mass index (BMI) [Ratio] 21.6 kg/m2 Dr. Benjie Carlson MD Work Phone: [phone])573-697810 [place] [address] 08-01-2024 08:10-0500 Body weight 64.[address] Benjie Carlson MD Work Phone: 5(369)625-300310 [place] [address] 08-01-2024 08:10-0500 Diastolic blood pressure 78 mm[Hg] Dr. Benjie Carlson MD Work Phone: 1(687)477-759910 [place] [address] 08-01-2024 08:10-0500 Heart rate 74 /min Dr. Benjie Carlson MD Work Phone: 0(407)271-338410 [place] [address] 08-01-2024 08:10-0500 Respiratory rate 18 /min Dr. Benjie Carlson MD Work Phone: 7(212)[phone] [place] [address] 08-01-2024 08:10-0500 SaO2% (BldA) [Mass fraction] 100 % Dr. Benjie Carlson MD Work Phone: [phone])[phone] [place] [address] 08-01-2024 08:10-0500 Systolic blood pressure 145 mm[Hg] Dr. Benjie Carlson MD Work Phone: 0(118)242-205769 [place] [address] 07-21-2024 08:20-0500 Body mass index (BMI) [Ratio] 21.9 kg/m2 Dr. Benjie Carlson MD Work Phone: [phone] [place] [address] 07-21-2024 08:20-0500 Diastolic blood pressure 70 mm[Hg] Dr. Benjie Carlson MD Work Phone: 4(379)822-263110 [place] [address] 07-21-2024 08:20-0500 Heart rate 55 /min Dr. Benjie Carlson MD Work Phone: 8(565)216-986910 [place] [address] 07-21-2024 08:20-0500 SaO2% (BldA) [Mass fraction] 100 % Dr. Benjie Carlson MD Work Phone: 0(081)450-434210 [place] [address] 07-21-2024 08:20-0500 Systolic blood pressure 142 mm[Hg] Dr. Benjie Carlson MD Work Phone: 6(382)594-916310 [place] [address] 07-21-2024 08:11-0500 Body weight 65.[address] Benjie Carlson MD Work Phone: 6(486)746-118510 [place] [address] 07-18-2024 08:24-0500 Body weight 65.[address] Benjie Carlson MD Work Phone: 5(401)092-836110 [place] [address] 07-15-2024 08:23-0500 Body mass index (BMI) [Ratio] 25.4 kg/m2 Dr. Benjie Carlson MD Work Phone: 3(146)642-019110 [place] [address] 07-06-2024 09:54-0500 Body mass index (BMI) [Ratio] 21.2 kg/m2 Dr. Benjie Carlson MD Work Phone: 5(986)871-116710 [place] [address] 07-06-2024 09:54-0500 Body weight 65.[address] Benjie Carlson MD Work Phone: 8(096)286-194210 [place] [address] 07-06-2024 09:54-0500 Diastolic blood pressure 61 mm[Hg] Dr. Benjie Carlson MD Work Phone: 0(773)612-088810 [place] [address] 07-06-2024 09:54-0500 Heart rate 59 /min Dr. Benjie Carlson MD Work Phone: 9(226)667-743510 [place] [address] 07-06-2024 09:54-0500 Respiratory rate 16 /min Dr. Benjie Carlson MD Work Phone: [facility] 07-06-2024 09:54-0500 Systolic blood pressure 150 mm[Hg] Dr. Benjie Carlson MD Work Phone: [facility] 05-23-2022 08:35-0500 Body temperature 97.7 [degF] Dr. Kenny Carlson Work Phone: [facility] Work Phone: 05-23-2022 08:35-0500 Diastolic blood pressure 69 mm[Hg] Dr. Kenny Carlson Work Phone: [facility] Work Phone: 05-23-2022 08:35-0500 Heart rate 64 /min Dr. Kenny Carlson Work Phone: [facility] Work Phone: 05-23-2022 08:35-0500 Respiratory rate 18 /min Dr. Kenny Carlson Work Phone: [facility] Work Phone: 05-23-2022 08:35-0500 SaO2% (BldA) [Mass fraction] 100 % Dr. Kenny Carlson Work Phone: [facility] Work Phone: 05-23-2022 08:35-0500 Systolic blood pressure 107 mm[Hg] Dr. Kenny Carlson Work Phone: [facility] Work Phone: 05-23-2022 07:17-0500 Body height 175.[address] Kenny Carlson Work Phone: [facility] Work Phone: 05-23-2022 07:17-0500 Body mass index (BMI) [Ratio] 21.4 kg/m2 Dr. Kenny Carlson Work Phone: [facility] Work Phone: 05-23-2022 07:17-0500 Body weight [address] Kenny Carlson Work Phone: [facility] Work Phone: 04-17-2022 08:56-0500 Body mass index (BMI) [Ratio] 22.1 kg/m2 Dr. Kenny Carlson Work Phone: [facility] Work Phone: 04-17-2022 08:56-0500 Body weight 68.[address] Kenny Carlson Work Phone: [facility] Work Phone: 12-31-2016 17:24-0400 BMI (Body Mass Index) 21.79 kg/m2 Rudy REINOSO [facility] Work Phone: 12-31-2016 17:24-0400 Body Temperature 98.2 [degF] Rudy REINOSO [facility] Work Phone: 12-31-2016 17:24-0400 BP Diastolic 88 mm[Hg] Rudy REINOSO [facility] Work Phone: 12-31-2016 17:24-0400 BP Systolic 138 mm[Hg] Rudy REINOSO [facility] Work Phone: 12-31-2016 17:24-0400 Height 178.44 cm Rudy REINOSO [facility] Work Phone: 12-31-2016 17:24-0400 Pulse (Heart Rate) 81 /min Rudy REINOSO [facility] Work Phone: 12-31-2016 17:24-0400 Respiratory Rate 14 /min Rudy REINOSO [facility] Work Phone: 12-31-2016 17:24-0400 Weight 69.4 kg Rudy REINOSO [facility] Work Phone: Encounters Encounter Date Encounter Type Care Provider Facility Start: 11-09-2024 ambulatory Benjie Ag lity:[facility] Start: 11-04-2024 End: 11-05-[address] Benjie Carlson MD Work Phone: [facility] Work Phone: Start: 11-04-2024 End: 11-05-[address] James Norris MD -Cardiac Rehab Work Phone: Start: 10-05-2024 End: 10-05-2024 ambulatory [facility] Facility:[facility] Start: 10-05-2024 End: 10-05-[address] James Norris MD -Cardiac Rehab Work Phone: Start: 09-05-2024 End: 09-05-[address] Benjie Carlson MD Work Phone: [facility] Work Phone: Start: 09-05-2024 End: 09-05-[address] James Norris MD -Cardiac Rehab Work Phone: Start: 08-01-2024 End: 08-01-2024 Patient encounter procedure Rohini Cuevas DC -[facility] Work Phone: Start: 08-01-2024 End: 08-01-2024 ambulatory [facility] Facility:[facility] [place] [facility] Start: 07-25-2024 End: 08-05-[address] James Norris MD -Cardiac Rehab Work Phone: Start: 07-25-2024 End: 08-05-2024 ambulatory [facility] Facility:[facility] Start: 07-21-2024 End: 07-21-[address] James Norris MD -Cardiac Rehab Work Phone: Start: 07-21-2024 End: 07-21-2024 ambulatory [facility] Facility:[facility] Start: 07-18-2024 Non-patient / Non-visit Dr. Mo OMALLEY -[facility] Start: 07-18-2024 ambulatory [facility] Faci lity:[facility] Start: 07-18-2024 End: 07-18-2024 Admission to same day surgery center Dr. James Norris MD -[facility] Director/Special Procedures Work Phone: Start: 07-18-2024 End: 07-18-2024 ambulatory [facility] Facility:[facility] Start: 07-06-2024 End: 07-06-[address] James Norris MD -Laboratory Work Phone: Start: 07-06-2024 End: 07-06-[address] James Norris MD -[facility] Work Phone: Start: 07-06-2024 End: 07-06-2024 ambulatory [facility] Facility:[facility] Start: 07-06-2024 End: 07-06-2024 ambulatory [facility] Facility:[facility] Start: 05-18-2024 [facility] Start: 05-18-2024 Non-patient / Non-visit Dr. Mo OMALLEY -[facility] Start: 05-18-2024 End: 05-18-[address] Benjie Carlson MD -Cardiovascular Services Work Phone: Start: 05-18-2024 End: 05-18-2024 ambulatory [facility] Facility:[facility] Start: 04-11-2024 End: 04-11-2024 Subsequent hospital visit by physician Jose [address] Comment on above: Essential (primary) hypertension Start: 04-11-2024 End: 04-11-2024 ambulatory [facility] Start: 03-10-2024 End: 03-10-2024 ambulatory [facility] Facility:[facility] Start: 02-12-2023 End: 02-12-2023 ambulatory [facility] Work Phone: Start: 02-12-2023 End: 02-12-2023 Patient encounter procedure [facility] [place] Work Phone: Start: 05-23-2022 Non-patient / Non-visit Dr. Blanka Carlson Work Phone: [facility] Start: 05-23-2022 End: 05-23-2022 Admission to same day surgery center Dr. Kenny Carlson Work Phone: [facility]-Endoscopy Start: 05-23-2022 End: 05-23-[address] Kenny Carlson Work Phone: [facility] Work Phone: Start: 04-17-2022 Non-patient / Non-visit Dr. Blanka Carlson Work Phone: [facility] Start: 02-12-2022 End: 02-12-2022 ambulatory [facility] Work Phone: Start: 02-12-2022 End: 02-12-2022 Patient encounter procedure [facility]-Laboratory, [facility] Procedures Date Procedure Procedure Detail Performing Clinician Start: 07-06-2024 Evaluation of diagno stic study results Dr. Benjie Carlson MD Work Phone: Start: 05-18-2024 Radionuclide imaging of perfusion of myocardium under exercise stress Dr. Benjie Carlson MD Work Phone: Start: 05-23-2022 End: 05-23-[address] Kenny leonard Work Phone: Start: 04-01-2011 Lipid 1996 panel - S sky or Plasma Jose 1 Start: 04-01-2011 End: 04-01-2011 *CBC with Differential Catracho Miller MD Start: 04-01-2011 End: 04-01-2011 *Liver/Hepatic Function Panel Catracho Miller MD Start: 04-01-2011 End: 04-01-2011 Lipid panel [AGGREGATE] Catracho Arauz Start: 04-01-2011 End: 04-01-2011 PSA Catracho Miller MD Start: 04-02-2010 End: 2010 *Thyroid Profile (T3,T4,TSH) Catracho Miller MD Start: 04-02-2010 End: 2010 Comprehen metabolic panel Catracho Miller MD Start: 04-02-2010 End: 2010 Lipid panel Catracho Miller MD Start: 04-02-2010 End: 04-02-2010 Physical examination PHYSICAL EXAMINATION Rudy REINOSO Start: 04-02-2010 End: 04-01-2011 Podiatry Referral Catracho Miller MD Plan of Treatment Date Care Activity Detail Author Start: 02-12-2033 DTaP/Tdap/Td Vaccine s (3 - Td or Tdap) DTaP/Tdap/Td Vaccines (3 - Td or Tdap) [facility] Start: 05-23-2032 Screening for malign ant neoplasm of colon [facility] Start: 2029 RSV High Risk: (Elde rly (60+) or Population) (1 - 1-dose 75+ series) RSV High Risk: (Elderly (60+) or Population) (1 - 1-dose 75+ series) [facility] Start: 07-18-[address] [facility] Work Phone: Start: 07-18-2024 Cardiac rehabilitati on - phase 1 [facility] Start: 07-18-2024 Cardiac rehabilitati on - phase 2 [facility] Start: 07-18-2024 Patient discharge [facility] Start: 05-23-2022 Patient discharge [facility] Work Phone: Start: 12-31-2016 End: 12-31-2016 Appointment Appointment [facility] Work Phone: Start: 04-01-2016 Lipid panel Lipid Panel [facility] Start: 04-01-2011 End: 04-01-2011 *CBC with Differential *CBC with Differential [facility] Work Phone: Start: 04-01-2011 End: 04-01-2011 *Liver/Hepatic Function Panel *Liver/Hepatic Function Panel [facility] Work Phone: Start: 04-01-2011 End: 04-01-2011 Lipid panel [AGGREGATE] *Lipid Profile [facility] Work Phone: Start: 04-01-2011 End: 04-01-2011 PSA *PSA, Annual Screening [facility] Work Phone: Start: 04-02-2010 End: 2010 *Thyroid Profile (T3,T4,TSH) *Thyroid Profile (T3,T4,TSH) [facility] Work Phone: Start: 04-02-2010 End: 2010 Comprehen metabolic panel *CMP Complete Metabolic Panel [facility] Work Phone: Start: 04-02-2010 End: 2010 Lipid panel *Lipid Profile [facility] Work Phone: Start: 04-02-2010 End: 04-01-2011 Podiatry Referral Podiatry Referral [facility] Work Phone: Start: 04-02-2010 End: 2010 Protein mass conc *Lipid Profile [facility] Work Phone: Start: 1972 Hepatitis C screening Hepatitis C [facility] Start: 1955 Medicare Annual Well ness Visit Medicare Annual Wellness Visit (AWV) [facility] Start: 1955 Screening for malign ant neoplasm of colon [facility] Catheterization of l eft heart [facility] Colonoscopy [facility] Work Phone: End: 04-11-2024 CT for calcium scoring WO contrast and CTA W contrast IV Heart and coronary arteries [facility] Service Area Work Phone: Comment on above: Once for 1 Occurrenc es starting 04/11/2024 until 04/11/2024 Hepatic function panel [facility] Lipid 1996 panel - S sky or Plasma [facility] Patient referral [facility] Work Phone: Payers Date Payer Category Payer Self-pay [id number] 2021 Unknown [id number] 2019 Medicare [id number] 2019 Medicare [id number] 1954 Unknown [id number] 2.16.8 [id number] Unknown ANTHEM [id number] Unknown [employer] [id number] 2 [id number] Unknown [id number] 2.16.8 [id number] Unknown [id number] 2.16.8 [id number] Unknown [id number] 2.16.8 [id number] Unknown [id number] 2.16.8 [id number] Unknown [id number] 2.16.8 [id number] Unknown [id number] 2.16.8 [id number] Unknown [id number] 2.16.8 [id number] Unknown [id number] 2.16.8 [id number] Unknown [id number] 2.16.8 [id number] Unknown [id number] 2.16.8 [id number] Unknown [id number] 2.16.8 [id number] Unknown [id number] 2.16.8 [id number] Unknown [id number] 2.16.8 [id number] Unknown [id number] 2.16.8 [id number] Social History Date Type Detail Facility Start: 12-31-2016 End: 05-23-2022 Tobacco smoking status NHIS Unknown if ever smoked [facility] Start: 1955 Sex Assigned At Male [facility] Start: 1955 Sex assigned at Not on file [facility] Work Phone: Gender identity Not on file [facility] Work Phone: Start: 04-01-2024 End: 04-11-2024 Exposure to SARS-CoV-2 (event) Not sure [facility] Start: 07-21-2024 Tobacco smoking stat us MEIS Never smoked tobacco (finding) [facility] Start: 09-06-2024 Sex Male (finding) [facility] Medical Equipment Procedure Code Equipment Code Equipment Origin al Text Equipment Identifier Dates Drug-eluting coronary artery stent, [id number] [id number]-coated ()[id number] FDA Start: 07-18-2024 Goals Date Patient Goal Desired Activity /State Mental Status Date Assessment Result Facility 05-23-2022 Cognitive function Level Of Consciousness Sedated [facility] Work Phone: 05-23-2022 Cognitive function Voice/Name [facility] Work Phone: Evaluation note 08-01-2024 Note Date & Type Note Facility 08-01-2024 Evaluation note Diagnosis Onset Date Resolution Abnormal breath sounds acute August 01, 2024 8:55am Benign essential HTN acute August 01, 2024 8:55am Hyperlipidemia, unspecified acute August 01, 2024 8:55am Stented coronary artery July 18, 2024 chronic August 01, 2024 8:55am [facility] Work Phone: Chief complaint+Reason for visit Narrative 07-18-2024 Note Date & Type Note Facility 07-18-2024 Chief complaint+R romana for visit Narrative ABN STRESS July 18, 2024 8:06am Referral Order July 18, 2024 4:55pm PCI with stent July 21, 2024 7:56am PCI with stent July 25, 2024 8:03am S/P [facility] 07/18August 01, 2024 8:55am PCI with stent September 05, 2024 8:0 0am PCI with stent October 05, 2024 8:0 0am PCI with stent November 04, 2024 8:00a m Reason for Visit Admit Date Abnormal breath sounds August 01 8:55am Benign essential HTN August 01, 2024 8:55am Hyperlipidemia, unspecified July 8:55am Stented coronary artery August 01 8:55am [facility] Work Phone: Evaluation note 07-06-2024 Note Date & Type Note Facility 07-06-2024 Evaluation note Diagnosis Onset Date Resolution Benign essential HTN acute July 06, 2024 9:49am Elevated coronary artery calcium score acute July 06, 2024 9:49am Hyperlipidemia, unspecified acute July 06, 2024 9:49am Abnormal breath sounds acute August 01, 2024 8:55am Benign essential HTN acute August 01, 2024 8:55am Hyperlipidemia, unspecified acute August 01, 2024 8:55am Stented coronary artery July 18, 2024 chronic August 01, 2024 8:55am [facility] Work Phone: Evaluation note Note Date & Type Note Facility Evaluation note No assessment information availa ble [facility] Work Phone: Evaluation note Note Date & Type Note Facility Evaluation note Diagnosis Onset Date Encounter for screening for malignant neoplasm of colon acute [facility] Work Phone: Evaluation note Note Date & Type Note Facility Evaluation note Diagnosis Essential (primary) hypertension Unspecified essential hypertension documented in this encounter [facility] Work Phone: Reason for visit Narrative Imaging (Routine) - Authorized Note Date & Type Note Facility Reason for visit Narrative Specialty Diagnoses / Procedures Referred By Contac t Referred To Contact Radiology Diagnoses Essential (primary) hypertension Procedures CT cardiac scoring wo IV contrast Benjie Carlson MD [address] [place] [address] Phone: tel: fax: Referral ID Status Reason Start Date Expiration Date Visits Requested Visits Authorized [id number] Authorized Perform Procedure 03/13/2024 03/13/2025 1 1 [facility] Work Phone: Advance Directives No Advanced Directives Records Found Advance Directive Response Recorded Date/ Time Living Will Yes December 31, 2016 6:04pm Power of Product Representative Yes December 31 6:04pm Advance Directive Response Recorded Date/ Time Name of Medical Power of Product Representative May 21, 2022 11:45am Living Will Yes May 21 11:45am Power of Product Representative Yes May 21, 2022 11:45am Advance Directive Response Recorded Date/ Time Living Will Yes May 21 12:45pm Power of Product Representative Yes May 21, 2022 12:45pm Advance Directive Response Recorded Date/ Time Advance Directives on File Yes 2024 9:24am Living Will Yes July 18 9:24am Do you have a Healthcare Power of Product Representative? Yes July 18, 2024 9:24am Name of Medical Power of Product Representative Lola Sargent July 18, 2024 9:24am Advance Directives Yes July 9:24am Advance Directives on File No 2024 9:06am Living Will Yes July 21 9:20am Do you have a Healthcare Power of Product Representative? Yes July 21, 2024 9:20am Chief Complaint and Reason for Visit Chief Complaint Amb Documentation Reason for Visit Encounter for screen ing for malignant neoplasm of colon Chief Complaint NEED ORDER Chief Complaint Admit Date ABN CALCIUM SCORE May 18, 2024 5:58am ABN CALCIUM SCORE May 18, 2024 4:20pm ABN CCTA (Robyn) July 06, 2024 9 :49am ABN STRESS July 18, 2024 8:06am Referral Order July 18, 2024 4:55pm PCI with stent July 21, 2024 7:56am PCI with stent July 25, 2024 8:03am S/P [facility] 07/18August 01, 2024 8:55am PCI with stent September 05, 2024 8:0 0am Reason for Visit Admit Date Benign essential HTN July 06, 2024 9:49am Elevated coronary artery calcium score J anuary 2024 9:49am Hyperlipidemia, unspecified June 9:49am Abnormal breath sounds August 01 8:55am Benign essential HTN August 01, 2024 8:55am Hyperlipidemia, unspecified July 8:55am Stented coronary artery August 01, 8:55am Family History No Family History Records Found Relationship Condition Age at Onset Recorded Date/T daryn brother Renal failure Unknown Leukemia Unknown brother Malignant neoplasm of throat Unknown father Malignant neoplasm of lung Unknown mother Cardiac disease Unknown Relationship Condition Age at Onset Recorded Date/T daryn brother Renal failure Unknown Leukemia Unknown brother Malignant neoplasm of throat Unknown father Malignant neoplasm of lung Unknown mother Cardiac disease Unknown History of three ves george coronary artery bypass 50 Summary Purpose Additional Source Comments Goals (unrecognized section and content) Goals may be documented in a n alternate sectionGoals may be documented in an alternate sectionGoals may be documented in an alternate sectionGoals may be documented in an alternate section Care Teams (unrecognized sec tion and content) Team Status: Active Member Role Status Dates Dr. Kenny Carlson MD Family Provider Active Dr. Kenny Carlson MD Primary Care Provider Activ e Team Status: Inactive Member Role Status Dates Dr. Kenny Carlson MD Primary Care Provider, Atte aking Provider Active Diagnostic Imaging Manager Relationship Specialty Start Date End Date Benjie Carlson MD [address] [facility] [address] [place] [address] PCP - General Family Medicine 04/11/24 Team Status: Active Member Role Status Dates Dr. Benjie Carlson MD Primary Care Provider Acti ve Team Status: Inactive Member Role Status Dates Dr. Benjie Carlson MD Primary Care Provider Acti ve Start: May 18, 2024 End: May 18, 2024 Dr. Benjie Carlson MD Attending Provider Active Start: May 18, 2024 End: May 18, 2024 Dr. Benjie Carlson MD Referring Provider Active Start: May 18, 2024 End: May 18, 2024 Team Status: Active Member Role Status Dates Dr. Benjie Carlson MD Primary Care Provider Acti ve Start: May 18, 2024 Dr. Benjie Carlson MD Referring Provider Active Start: May 18, 2024 Dr. Benjie Carlson MD Other Provider Active Start: May 18, 2024 Dr. James Norris MD Attending Provider Active S tart: May 18, 2024 Team Status: Inactive Member Role Status Dates Dr. Benjie Carlson MD Primary Care Provider Acti ve Start: July 06, 2024 End: July 06, 2024 Dr. Benjie Carlson MD Referring Provider Active Start: July 06, 2024 End: July 06, 2024 Dr. James Norris MD Attending Provider Active S tart: July 06, 2024 End: July 06, 2024 Team Status: Inactive Member Role Status Dates Dr. Benjie Carlson MD Primary Care Provider Acti ve Start: July 06, 2024 End: July 06, 2024 Dr. James Norris MD Attending Provider Active S tart: July 06, 2024 End: July 06, 2024 Dr. James Norris MD Referring Provider Active S tart: July 06, 2024 End: July 06, 2024 Team Status: Inactive Member Role Status Dates Dr. Benjie Carlson MD Primary Care Provider Acti ve Start: July 18, 2024 End: July 18, 2024 Dr. James Norris MD Attending Provider Active S tart: July 18, 2024 End: July 18, 2024 Dr. James Norris MD Referring Provider Active S tart: July 18, 2024 End: July 18, 2024 Team Status: Active Member Role Status Dates Dr. Benjie Carlson MD Primary Care Provider Acti ve Start: July 18, 2024 Dr. James Norris MD Attending Provider Active S tart: July 18, 2024 Team Status: Inactive Member Role Status Dates Dr. Benjie Carlson MD Primary Care Provider Acti ve Start: July 21, 2024 End: July 21, 2024 Dr. James Norris MD Attending Provider Active S tart: July 21, 2024 End: July 21, 2024 Dr. James Norris MD Referring Provider Active S tart: July 21, 2024 End: July 21, 2024 Team Status: Inactive Member Role Status Dates Dr. Benjie Carlson MD Primary Care Provider Acti ve Start: July 25, 2024 End: August 05, 2024 Dr. James Norris MD Attending Provider Active S tart: July 25, 2024 End: August 05, 2024 Dr. James Norris MD Referring Provider Active S tart: July 25, 2024 End: August 05, 2024 Team Status: Inactive Member Role Status Dates Dr. Benjie Carlson MD Primary Care Provider Acti ve Start: August 01, 2024 End: August 01, 2024 Dr. Benjie Carlson MD Referring Provider Active Start: August 01, 2024 End: August 01, 2024 Rohini Cuevas PA, PA Attending Provider Active Start: August 01, 2024 End: August 01, 2024 Team Status: Inactive Member Role Status Dates Dr. Benjie Carlson MD Primary Care Provider Acti ve Start: September 05, 2024 End: September 05, 2024 Dr. James Norris MD Attending Provider Active S tart: September 05, 2024 End: September 05, 2024 Dr. James Norris MD Referring Provider Active S tart: September 05, 2024 End: September 05, 2024 Team Status: Inactive Member Role Status Dates Dr. Benjie Carlson MD Primary Care Provider Acti ve Start: October 05, 2024 End: October 05, 2024 Dr. James Norris MD Attending Provider Active S tart: October 05, 2024 End: October 05, 2024 Dr. James Norris MD Referring Provider Active S tart: October 05, 2024 End: October 05, 2024 Team Status: Inactive Member Role Status Dates Dr. Benjie Carlson MD Primary Care Provider Acti ve Start: November 04, 2024 End: November 05, 2024 Dr. James Norris MD Attending Provider Active S tart: November 04, 2024 End: November 05, 2024 Dr. James Norris MD Referring Provider Active S tart: November 04, 2024 End: November 05, 2024 (unrecognized sect ion and content) No Status Records FoundNo Status Records Found INFORMATION SOURCE (unrecogn ized section and content) DATE CREATED AUTHOR 04/18/2024 [facility] DATE CREATED AUTHOR AUTHOR'S SANGEETA WHITE 11/10/[address] [facility] FOR RECORDS PERTAINING TO PATIENTS WHO ARE OR HAVE BEEN ENROLLED IN A CHEMICAL DEPENDENCY/SUBSTANCEABUSE PROGRAM, SOME INFORMATION MAY BE OMITTED. This clinical summary was aggregated from multiple sources. Caution should be exercised in using it in the provision of clinical care. This summary normalizes information from multiple sources, and as a consequence, information in this document may materially change the coding, format and clinical context of patient data. In addition, data may be omitted in some cases. CLINICAL DECISIONS SHOULD BE BASED ON THE PRIMARY CLINICAL RECORDS. [employer] provides no warranty or guarantee of the accuracy or completeness of information in this document.
[2024-11-11 08:27] LABS: AST(SGOT) 35 U/L (<=37); Alanine Aminotransfer ALT/SGPT 33 U/L (<=46); Albumin, Serum 4.5 g/dL (3.4-4.8); Alkaline Phosphatase 65 U/L (40-129); Bilirubin, Direct 0.59 mg/dL (0.00-0.30); Cholesterol 143 mg/dL (<=200); Globulin 2.2 g/dL (2.2-4.2); High Density Lipoprotein 74 mg/dL; Low Density Lipoprotein Calc. 58 mg/dL; Protein, Total 6.7 g/dL (5.9-8.4); Total Bilirubin 1.47 mg/dL (0.00-1.30); Triglycerides 57 mg/dL; Very Low Density Lipoprotein 11 mg/dL (5-40); cholesterol:hdl ratio screen 1.95
== END | disposition home or self-care (01) ==
PROVIDERS: PCP Family Medicine; Referring Provider Physician Assistant Medical; Visit Provider Physician Assistant Medical
DX: E78.5 Hyperlipidemia, unspecified (principal)
CPT/HCPCS: 36415; 80061; 80076

== ENCOUNTER 2024-11-14 08:00 | Outpatient (RCR) | payer MEDICARE, OTHER, SELFPAY ==
[2024-10-14 07:08] VITALS: BMI 21.6
[2024-11-06 00:31] VITALS: BP 104/54; BP 124/48; BP 136/54; BP 140/60
--- NOTE | 2024-11-11 07:09 | CR.ITP_ITS ---
Exercise - Initial Assessment Physician Prescribed Exercise Modalities: Treadmill, Schwinn Airdyne AD-7 and SciFit Stepper Nutrition - Initial Assessment Program Goals Nutrition Program Goals Patient has diagnosis of Hyperlipidemia (ICD E78)?: Yes Weight Mgt (Other Care) Height: 5 ft 8 in Weight:: 143 lb 8 oz BMI: 21.8 Core - Initial Assessment Hypertension Resting Blood Pressure:: 112/50 [place] [employer] Hypertension Guidelines Psychosocial - Initial Assess Target Goals Target Goals Psychosocial Test phq-9 Severity See PHQ-9 Score: 0 Referral to Behavioral Health PS - Interventions: Yes: Attend Stress Management Classes Patient Health Questionnaire PHQ-9 Screening Discharge Assessment: 1. Little interest or pleasure in doing things: Not at all 2. Feeling down, depressed, or hopeless: Not at all 3. Trouble falling or staying asleep, or sleeping too much: Not at all 4. Feeling tired or having little energy: Not at all 5. Poor appetite or overeating: Not at all 6. Feeling bad about yourself -- or that you are a failure or have let yourself or your family down: Not at all 7. Trouble concentrating on things, such as reading the newspaper or watching television: Not at all 8. Moving or speaking so slowly that other people could have noticed. Or the opposite - being so fidgety or restless that you have been moving around a lot more than usual: Not at all 9. Thoughts that you would be better off , or of hurting yourself in some way: Not at all How difficult have these problems made it for you to do your work, take care of things at home, or get along with other people?: Not difficult at all Total Score: 0 Self-Efficacy 6-Item Scale Discharge Assessment: We would like to know how confident you are in doing certain activities. Please select your confidence level for: Fatigue Select Number: 8 Physical Discomfort or Pain Select Number: 7 Emotional Distress Select Number: 9 Other Symptoms or Health Problems Select Number: 7 Different Tasks and Activities Select Number: 8 Medication Select Number: 8 Total Score:: 7 Nutrition Survey Nutrition Survey Instructions Scoring Instructions Exercise - 30-day Assessment Physician Prescribed Exercise Modalities: Treadmill, Schwinn Airdyne AD-7 and SciFit Stepper Exercise - 60-day Assessment Physician Prescribed Exercise Modalities: Treadmill, Schwinn Airdyne AD-7 and SciFit Stepper Exercise - 90-day Assessment Physician Prescribed Exercise Modalities: Treadmill, Schwinn Airdyne AD-7 and SciFit Stepper Exercise - Final/Discharge Visit Date of Eval: 11/11/24 Session #:: 34 Physician Prescribed Exercise Modalities: Treadmill, Schwinn Airdyne AD-7 and SciFit Stepper Frequency: 3x/week for 12 weeks [36 sessions] Intensity: 60-80% of age predicted maximum heart rate reserve Duration: 30 - 45 minutes Current METSs:: 9.5 Target Heart Rate:: 90-128 Current RPE:: 12-14 Maximum Heart Rate:: 120 Resting Blood Pressure: 112/50 Maximum Exercise Blood Pressure: 184/70 EKG Type: SB to ST w/ occas PAC and rare PVC Outcomes & Goals Goals:: Verbalizes understanding of THR, RPE & goal METS by session 6, Documents in home exercise log/reports 30 min aerobic 5 day/wk by DC, Demonstrates accurate pulse taking by DC and Other additional outcome/goals: see below Intervention & Plan Exercise Program Goals: Instruct on personal THR & RPE, Instruct on MET level & personal MET goal, Show patient to take own pulse /validate performance until accurate, Instruct on home exercise and Other additional plan/int Physical Activity Home Exercise Physical Activity - Home Exercise: Safe Exercise, Warm-up, Self-monitoring, Cool-Down, Home Exercise > 30 min Daily and Sitting Time <3 hours/daily Outcomes & Goals Outcomes/Goals: Demonstrates correct Warm-up/exercise Cool-Down (S3) if = 2.5 METs, Verbalizes symptoms of exercise intolerance by Session 3 (S3), Demonstrate safe equipment use (S3) & follows exercise prescrition (6) and Other: See below Intervention & Plan Plan/Intervention: Instruct warm-up & cool-down if exercising at > 2 METs, Instruct on symptoms of exercise intolerance & actions to take, Instruct & monitor on saf, Assess intial functional capacity & safety risk and Other See below 30-day Reassessments 30 day Reassessments:: Met Reassessment Notes & Comments:: Pt has met his exercise goals. Pt has 2 sessions remaining. Pt will be given his exercise prescription along with community resources to continue his exercise. Nutrition - 30-Day Assessment Weight Mgt (Other Care) Height: 5 ft 8 in Weight:: 143 lb 8 oz BMI: 21.8 Nutrition - 60-Day Assessment Weight Mgt (Other Care) Height: 5 ft 8 in Weight:: 143 lb 8 oz BMI: 21.8 Core - 30-Day Assessment Hypertension [employer] [employer] Hypertension Guidelines Reassessment Notes & Comments:: Pt's BP's are within AHA normal limits on most days. Core - Final Assessment Visit Date of Eval: 11/11/24 Session #:: 34 Medication Compliance Preventative Medication(s):: Aspirin, Clopidogrel/P2Y12 inhibit and Statin/lipid H/O mental health issues: depression, anxiety, or addiction?: No Doesn?t believe in the benefits of treatment?: No Believes medications are unnecessary or harmful?: No Has a concern about medication side effects?: No Expresses concern over the cost of medications?: No Outcomes/Goals: Verbalizes medications,desired effect & common side effects @ DC, Pt self-reports following medication regimen, Keeps card in wallet w/medications listed by DC and Other additional outcome/goals: Interventions/plans: Instruct on medication effects & side effects, Review medication list w/patient every two weeks, Instruct importance of taking meds as ordered & assist problem solving and Other additional Tobacco Use Tobacco Use: Non-smoker Hypertension Hypertension Diagnosis:: Hypertension ICD-10 I10 Resting Blood Pressure:: 112/50 [place] [employer] Hypertension Guidelines Peak Exercise Blood Pressure:: 184/70 Outcomes/Goals: Able to verbalize/achieve optimal blood pressure <130/80, Incorporates diet changes & exercise for blood pressure control by DC and Other additional outcomes/goals Interventions/plan: Instruct on optimal blood pressure, hypertension & medications, Instruct on effects of sodium, alcohol, stress, exercise &hypertension and Other additional plan/interventions 30 day Reassessments:: Met Reassessment Notes & Comments:: Pt's BP's are within AHA normal limits on most days. Tobacco Cessation Referral Smoking Cessation Referral:: No Individual Education/Counseling:: No Education Schedule Given:: Yes Core - 90 Day Assessment Hypertension [employer] [employer] Hypertension Guidelines Reassessment Notes & Comments:: Pt's BP's are within AHA normal limits on most days. Core - 60-Day Assessment Hypertension Resting Blood Pressure:: 112/50 [place] [employer] Hypertension Guidelines Psychosocial - 30-Day Assess Target Goals Target Goals Referral to Behavioral Health PS - Interventions: Yes: Attend Stress Management Classes Psychosocial - 60-Day Assess Target Goals Target Goals Referral to Behavioral Health PS - Interventions: Yes: Attend Stress Management Classes Psychosocial - 90-Day Assess Target Goals Target Goals Referral to Behavioral Health PS - Interventions: Yes: Attend Stress Management Classes Psychosocial - Final Assessmen VIsit Date of Eval: 11/11/24 Session #:: 34 History of previous Mental disease:: No Target Goals Target Goals Psychosocial Test Tool Used:: PHQ-9 Questionnaire phq-9 Severity See PHQ-9 Score: 0 Referral to Behavioral Health PS - Interventions: Yes: Attend Stress Management Classes Outcomes/Goals: See list Psychosocial Outcomes/Goals:: ID's personal stressors & 2 strategies to manage stress by discharge and Other Additional outcome/goals: Intervention/Plan: See List Interventions/Plan:: Assess stressors,coping strategies & signs of derpression on admission, Instruct/assist pt to develop coping & personal stress Mgt strategies, Refer to Behavioral Health if appropriate, Refer to Physician if appropriate, Instruct patient to recognize signs & symptoms of depression, Instruct patient to recog and Other additional plan/intervention 30-day Reassessments: 30 day Reassessments:: Met Reassessment Notes & Comments:: Pt has attended stress management class and denies any psychosocial issues at this time. Nutrition - 90-Day Assessment Weight Mgt (Other Care) Height: 5 ft 8 in Weight:: 143 lb 8 oz BMI: 21.8 Nutrition - Final Assessment Program Goals Patient has diagnosis of Hyperlipidemia (ICD E78)?: Yes Visit Date of Assessment:: 11/11/24 Session #:: 34 Cholesterol/Lipids (Other Core Measures) Determine presence & major risk factors that modify LDL goal: Hypertension or hypertensive medication, Low HDL cholesterol <40 mg/dL*, Family history of premature CHD in Male < 55 years: female <65 yearsFa and Age men > 45 years; women >/= 55 years Outcomes/Goals: Pt IDs own risk factors & lifestyle modifications by Session 10, Verbalizes symptoms of angina & response by session 3., Pt independently manages and Other Additional Outcomes/Goals: Intervention/Plan: Advocate for lipid panel cholesterol medication if applicable, Instruct on personal lipid levels & lipid goals/NCEP guidelines, Instruct on cholesterol and Other additional plan/int Diabetes (Other Core Measures) Diabetes Type: Not Applicable Weight Mgt (Other Care) Height: 5 ft 8 in Weight:: 143 lb 8 oz BMI: 21.8 Diagnosis Overweight/Obesity BMI> 30% ICD-10 E66: No Diagnosis High BMI/Morbid Obesity BMI> 35% ICD-10 Z68: No Outcomes/Goals: Pt sets, maintains & shows weight loss goal & trend during rehab and Other additional outcomes/goals Intervention/Plan: Instruct on ideal BMI & set weight loss goal w/patient, Assist pt to ID & incorporate diet changes for weight loss by S9, Refer to Structured Weight Loss program as appropriate, Encourage goal of using 250- 300dcal per session for weight loss and Other additional plan/interventions 30 day Reassessments:: Met Reassessment Notes & Comments:: Don is at a healthy weight Healthy Eating Habits Will attend diet classes:: Yes Outcomes/Goals:: Consume diet rich in vegs,fruits,whole grain/high fiber,fish,lean meat, Limit sat/trans fats,cholesterol & added salts & sugars and Other additional outcome/goals: 30-day Reassessments:: Not Met Reassessment Notes & Comments:: Pt has attended nutrition class and understands the benefits of a heart healthy low sodium diet. Education Gave educational materials for:: Signs & symptoms of hypoglycemia, Signs & symptoms of hyperglycemia, Relate diabetes to coronary artery disease and Healthy eating
[2024-11-11 07:19] VITALS: BP 112/50; BMI 21.8
== END 2024-12-05 23:59 ==
LOC: CR 08:00
PROVIDERS: PCP Family Medicine; Referring Provider Internal Medicine Cardiovascular Disease; Visit Provider Internal Medicine Cardiovascular Disease
DX: Z95.5 Presence of coronary angioplasty implant and graft (principal); I25.10 Atherosclerotic heart disease of native coronary artery without angina pectoris; R93.1 Abnormal findings on diagnostic imaging of heart and coronary circulation; E78.5 Hyperlipidemia, unspecified; I10 Essential (primary) hypertension
CPT/HCPCS: 93798

== ENCOUNTER → 2025-01-03 | Outpatient (CLI) | payer MEDICARE, OTHER, SELFPAY ==
[2024-11-11 07:19] VITALS: BMI 21.8
--- NOTE | 2025-01-03 09:17 | RAD_ITS ---
PROCEDURE: FOREARM 2 VIEWS 01/03/2025 REASON FOR EXAM: INJURY LEFY FOREARM TECHNIQUE: FOREARM 2 VIEWS COMPARISON: None FINDINGS: Bones: Nondisplaced oblique fracture of the distal metaphysis of the ulna. Joints: Normal alignment at the wrist and elbow. Soft tissues: Soft tissue swelling. Other: RAD/Forearm 2 Views IMPRESSION: Nondisplaced oblique fracture of the distal ulna. Soft tissue swelling. Reading Location: [facility]
--- OUTSIDE RECORDS SUMMARY | 2025-01-03 20:09 | XMS RPT_ITS | CCD ---
Author Organization [facility] Care Team Providers Care Mosquito Sprayer Name Role Phone Rudy Howe Unavailable [phone] Kenny Carlson Primary Care Provider Sherice Hutson Attending Provider Unavailable Dr. Kenny Carlson Referring Provider Dr. Thomas Montoya Attending Provider Dr. Thomas Montoya Other Provider Benjie Carlson MD Primary Care Provide r BENJIE CARLSON Referring Unavail BENJIE Barba Primary Care Unavail jeannie Carlson MD, Dr. Meier Primary Care Provider Dr. Benjie Carlson MD Attending Provider Dr. Benjie Carlson MD Referring Provider Dr. Benjie Carlson MD Other Provider Dr. James Norris MD Attending Provider [phone] James Norris MD Referring Provider Rohini Andrews Attending Provider Dr. Benjie Carlson MD Primary Care Provider Dr. James Norris MD Attending Provider Dr. James Norris MD Referring Provider Dr. Benjie Carlson MD Referring Provider Dr. Benjie Carlson MD Primary Care Provider Dr. James Norris MD Attending Provider [phone] Myrna OMALLEY, Dr. Ramirez Referring Provider [phone] Rohini Andrews Referring Provider [phone] Robyn OMALLEY, Dr. Meier Primary Care Provider Myrna OMALLEY, Dr. Ramirez Attending Provider [phone] Myrna OMALLEY, Dr. Ramirez Referring Provider [phone] Rohini Andrews Attending Provider [phone] Ranney, Christopher Primary Care Unavailable Ranney, Christopher Referring Unavailable Ranney, Christopher Attending Unavailable Ranney, Christopher Primary Care Unavailable Ranney, Christopher Referring Unavailable Ranney, Christopher Attending Unavailable Ranney, Christopher Consulting Unavailable Ranney, Christopher Primary Care Unavailable Ranney, Christopher Referring Unavailable Myrna, James Attending Unavailable Ranney, Christopher Primary Care Unavailable Myrna, James Attending Unavailable Ranney, Christopher Primary Care Unavailable Ranney, Christopher Referring Unavailable Myrna, [place] Attending Unavailable Ranney, Christopher Primary Care Unavailable Ranney, Christopher Referring Unavailable Rohini Andrews Attending Unavail able Ranney, Christopher Primary Care Unavailable Myrna, James Attending Unavailable Myrna, [place] Referring Unavailable Ranney, Christopher Primary Care Unavailable Myrna, James Attending Unavailable Myrna, [place] Referring Unavailable Ranney, Christopher Primary Care Unavailable Myrna, [place] Attending Unavailable Myrna, James Referring Unavailable Ranney, Christopher Primary Care Unavailable Myrna, [place] Attending Unavailable Myrna, James Referring Unavailable Ranney, Christopher Primary Care Unavailable Myrna, [place] Attending Unavailable Myrna, James Referring Unavailable Ranney, Christopher Primary Care Unavailable Myrna, James Attending Unavailable Myran, James Referring Unavailable Ranney, Christopher Primary Care Unavailable Myrna, [place] Attending Unavailable Myrna, James Referring Unavailable Ranney, Christopher Primary Care Unavailable Myrna, James Attending Unavailable Myrna, [place] Referring Unavailable Ranney, Christopher Primary Care Unavailable Myrna, [place] Attending Unavailable Myrna, James Referring Unavailable Ranney, Christopher Primary Care Unavailable Rohini Andrews Referring Unavail able Rohini Andrews Attending Unavail able Allergies Allergy Classification Reported Allergen(s) Allergy Type Date of Onset Reaction(s) Facility (7 sources) Hornet venom; Translations: [hornet venom] Allergy to substance 2 Swelling [facility] Comment on above: Has Epipen (6 sources) venom-honey bee Allergy to substance 2 Swelling [facility] Comment on above: Has Epipen (1 source) ALLERGIES NOT ON FILE; Translations: [ALLERGIES NOT ON FILE] Propensity to adverse reactions (disorder) [facility] 2 Repository (1 source) venom-honey bee Drug allergy (disorder) 5 [facility] Repository Medications Current Medications Medication Drug Class(es) Dates Sig (Normalized) Sig (Original) amLODIPine 10 mg oral tablet (6 sources) Dihydropyridine Calcium Channel Lan Start: 04-17-2022 take 1 tablet by mouth once daily Amlodipine (Norvasc) 10 mg tablet Active 10 mg PO DAILY April 17, 2022 1:00am aspirin 81 mg delayed release oral tablet (8 sources) Platelet Aggregation Inhibitor, Nonsteroidal Anti-inflammatory Drug Start: 04-17-2022 Aspirin (Adult Low Dose Aspirin) 81 mg tablet,delayed release (DR/EC) Active 81 mg PO DAILY April 17, 2022 1:00am take 1 tablet by mouth once leobardo y ASPIRIN LOW DOSE TBEC One tablet by mouth daily ASPIRIN [facility] [id number] Catracho Miller MD take 1 tablet by mouth once leobardo y ASPIRIN LOW DOSE TBEC One tablet by mouth daily ASPIRIN [facility] [id number] Catracho Miller MD atorvastatin 40 mg oral tablet (20 sources) HMG-CoA Reductase Inhibitor Start: 07-18-2024 End: 08-22-2024 take 1 tablet by mouth once daily Atorvastatin 40 mg tablet Active 40 mg PO DAILY 90 August 22, 2024 10:21am control colesterol Start: 07-06-2024 End: 07-18-2024 take 1 tablet by mouth once daily Atorvastatin 20 mg tablet Discontinued 20 mg PO DAILY July 06, 2024 1:00am July 18, 2024 5:19pm control colesterol Start: 12-31-2016 End: 07-06-2024 take 1 tablet by mouth at bedtime Atorvastatin 10 MG tablet Discontinued 10 mg PO AT BEDTIME December 31, 2016 12:00am July 06, 2024 11:01am azithromycin 250 mg oral tablet (4 sources) Macrolide Antimicrobial Start: 08-01-2024 Azithromycin (Zithromax Z-Antonio) 250 mg tablet Active 0 PO .COMPLEX 6 0 August 01, 2024 1:00am For 250 mg dose pack: take 500 mg today (day 1), then 250 mg for 4 days (days 2-5) PO clopidogrel 75 mg oral tablet (8 sources) P2Y12 Platelet Inhibitor Start: 07-18-2024 End: 08-22-2024 take 1 tablet by mouth once daily Clopidogrel (Plavix) 75 mg tablet Active 75 mg PO daily 90 2 August 22, 2024 10:21am [place] 8-Mqu-Pkp-Fish Oil (6 sources) Start: 04-17-2022 [place] 3-Jjj-Amw-Fish Oil (Fish Oil) 300-1,000 mg capsule Active 1 NMA PO DAILY April 17, 2022 1:00am Start: 04-17-2022 take 300-1000 mg by mouth once daily [place] 0-Bsz-Mkc-Fish Oil (Fish Oil) 300-1,000 mg capsule Active 1 CAP PO DAILY April 17, 2022 1:00am Start: 04-17-2022 take 300-1000 mg by mouth once daily [place] 9-Nzs-Ovz-Fish Oil (Fish Oil) 300-1,000 mg capsule Active 1 CAP PO DAILY April 17, 2022 12:00am [id number] 0.3 ml EPINEPHrine 1 mg/ml auto-injector (7 sources) alpha-Adrenergic Agonist, beta-Adrenergic Agonist, Catecholamine Start: 12-31-2016 inject 0.3 mg by intramuscular injection once Epinephrine 0.3 MG syringe Active 0.3 mg IM ONE TIME 2 December 31, 2016 12:00am famotidine 20 mg oral tablet (1 source) Histamine-2 Receptor Antagonist Start: 12-31-2016 take 20 mg by mouth twice daily Famotidine Active 20 MG PO TWICE A DAY December 31, 2016 12:00am hydroCHLOROthiazide 12.5 mg oral tablet (6 sources) Thiazide Diuretic Start: 05-21-2022 take 1 tablet by mouth once daily Hydrochlorothiazide 12.5 mg tablet Active 12.5 mg PO DAILY May 21, 2022 1:00am latanoprost 0.05 mg/ml ophthalmic solution (6 sources) Prostaglandin Analog Start: 04-17-2022 Latanoprost 0.005 % drops Active 1 NMA OPHTHALMIC DAILY April 17, 2022 1:00am Multivitamin preparation (2 sources) Start: 04-17-2022 take 1 tablet by mouth once daily Multivitamin Active 1 TABLET PO DAILY April 17, 2022 1:00am Start: 04-17-2022 take 1 tablet by rhoda th once daily Multivitamin Active 1 TABLET PO DAILY April 17, 2022 12:00am Multivitamin tablet (8 sources) Start: 07-06-2024 Multivitamin t ablet Active 1 {tbl} PO DAILY July 06, 2024 11:02am Start: 04-17-2022 End: 07-06-2024 Multivitamin tablet Disconti nued 1 {tbl} PO DAILY April 17, 2022 1:00am July 06, 2024 11:02am predniSONE 20 mg oral tablet (1 source) Start: 12-31-2016 take 60 mg by mouth once daily Prednisone Active 60 MG PO DAILY December 31, 2016 12:00am psyllium 400 mg oral capsule (6 sources) Start: 04-17-2022 Psyllium Husk (Daily Fiber) 0.4 gram capsule Active 0.8 g PO DAILY April 17, 2022 1:00am ramipril 10 mg oral capsule (13 sources) Angiotensin Converting Enzyme Inhibitor Start: 12-31-2016 [...] One tablet by mouth twice daily. RAMIPRIL [id number] Catracho Miller MD End: 04-01-2011 take 1 tablet by mouth once daily RAMIPRIL 10 MG CAPS One tablet by mouth daily RAMIPRIL [id number] Catracho Miller MD Timolol Maleate (4 sources) beta-Adrenergic Lan Start: 07-06-2024 Timolo l Maleate 0.5 % drops Active NMA OPHTHALMIC July 06, 2024 1:00am control eye pressure Start: 07-06-2024 Timolol Maleat e 0.5 % drops Active NMA OPHTHALMIC July 06, 2024 1:00am Completed/Discontinued Medications Medication Drug Class(es) Dates Sig (Normalized) Sig (Original) PSYLLIUM CAPS (2 sources) take 2 tablets by mouth once daily FIBER CAPS Two tablets by mouth daily PSYLLIUM CAPS [id number] Catracho Miller MD Fish Oils (2 sources) Start: 04-02-2010 take 1 tablet by mouth once daily FISH OIL CAPS One tablet by mouth daily. OMEGA-3 FATTY ACIDS CAPS [id number] Catracho Miller MD MULTIPLE VITAMINS-MINERALS (1 source) take 1 tablet by mouth once daily CENTRUM TABS One tablet by mouth daily MULTIPLE VITAMINS-MINERALS [id number] Catracho Miller MD MULTIPLE VITAMINS-MINERALS (1 source) take 1 tablet by mouth once daily CENTRUM TABS One tablet by mouth daily MULTIPLE VITAMINS-MINERALS [id number] Catracho Miller MD ticagrelor 90 mg oral tablet (16 sources) Start: 07-18-2024 End: 07-18-2024 take 1 tablet by mouth twice daily Ticagrelor (Brilinta) 90 mg tablet Discontinued 90 mg PO TWICE A DAY 60 11 July 18, 2024 5:22pm July 18, 2024 5:35pm Problems Active Problems Problem Classification Problem Date Documented Date Episodic/Chronic Coronary atherosclerosis and other heart disease (6 sources) Arteriosclerotic vascular disease; Translations: [Atherosclerotic heart disease of robinson coronary artery without angina pectoris] Onset: 06-20-2024 05-30-2024 Chronic Disorders of lipid metabolism (15 sources) Hypercholesterolemia; Translations: [Pure hypercholesterolemia, unspecified] Onset: 04-02-2010 04-02-2010 Chronic Comment on above: ON MEDICATION Essential hypertension (17 sources) Hypertensive disorder; Translations: [Essential hypertension] Onset: 04-02-2010 12-31-2016 Chronic Other lower respiratory disease (7 sources) Abnormal breath sounds; Translations: [Other abnormalities of breathing] 08-01-2024 Episodic Unclassified (2 sources) Z95.5 - Presence of coronary angioplasty implant and graft,I25.10 - Atherosclerotic heart disease of robinson coronary artery without angina pectoris,R93.1 - Abnormal findings on diagnostic imaging of heart and coronary circulation,E78.5 - Hyperlipidemia, unspecified,I10 - Essential (primary) hypertension Past or Other Problems Problem Classification Problem Date Documented Da te Episodic/Chronic Coronary atherosclerosis and other heart disease (7 sources) Stented coronary artery; Translations: [Presence of coronary angioplasty implant and graft] Onset: 07-18-2024 07-18-2024 Episodic Comment on above: 2.75 X 22 mm Jacob Fr ontier MANJIT to RCA Other connective tissue disease (2 sources) Plantar fasciitis; Translations: [Plantar fascial fibromatosis] Onset: 04-02-2010 04-02-2010 Episodic Other injuries and conditions due to external causes (2 sources) Angioneurotic edema, initial encounter; Translations: [Angioneurotic edema, initial encounter] Onset: 12-31-2016 12-31-2016 Episodic Other screening for suspected conditions (not mental disorders or infectious disease) (13 sources) Patient encounter status; Translations: [Encounter for screening for malignant neoplasm of colon] Onset: 07-18-2024 Episodic Unclassified (1 source) Physical examination; Translations: [Encounter for general adult medical examination without abnormal findings] Onset: 04-02-2010 Resolved: 04-02-2010 04-02-2010 Results Test Name Value Interpretation Reference Range Facility No Panel InformationOrdered By: Hang Tejeda on 11-13-2024 [facility] [address] [place] [address] CR - Individual Treatment Plan MR#: [id number] Acct: [id number] Name: DENYS SARGENT Rep #:[id number] : 1955 69 From: Hang Rogers BS, RVT PCP: Dr. Benjie Carlson MD DOS: 11/11/24 Exercise - Initial Assessment Physician Prescribed Exercise Modalities: Treadmill, Schwinn Airdyne AD-7 and SciFit Stepper Nutrition - Initial Assessment Program Goals Nutrition Program Goals Patient has diagnosis of Hyperlipidemia (ICD E78)?: Yes Weight Mgt (Other Care) Height: 5 ft 8 in Weight:: 143 lb 8 oz BMI: 21.8 Core - Initial Assessment Hypertension Resting Blood Pressure:: 112/50 [place] [employer] Hypertension Guidelines Psychosocial - Initial Assess Target Goals Target Goals Psychosocial Test phq-9 Severity See PHQ-9 Score: 0 Referral to Behavioral Health PS - Interventions: Yes: Attend Stress Management Classes Patient Health Questionnaire PHQ-9 Screening Discharge Assessment: 1. Little interest or pleasure in [...] all Total Score: 0 Self-Efficacy 6-Item Scale Discharge Assessment: We would like to know how [...] AD-7 and SciFit Stepper Exercise - Final/Discharge Visit Date of Eval: 11/11/24 Session #:: 34 Physician Prescribed Exercise Modalities: Treadmill, Schwinn Airdyne AD-7 and SciFit Stepper Frequency: 3x/week for 12 weeks [36 sessions] Intensity: 60-80% of age predicted maximum heart rate reserve Duration: 30 - 45 minutes Current METSs:: 9.5 Target Heart Rate:: 90-128 Current RPE:: 12-14 Maximum Heart Rate:: 120 Resting Blood Pressure: 112/50 Maximum Exercise Blood Pressure: 184/70 EKG Type: SB to ST w/ occas PAC and rare PVC Outcomes & Goals Goals:: Verbalizes understanding of [...] See below 30-day Reassessments 30 day Reassessments:: Met Reassessment Notes & Comments:: Pt has met his exercise goals. Pt has 2 sessions remaining. Pt will be given his exercise prescription along with community resources to continue his exercise. Nutrition - 30-Day Assessment Weight Mgt (Other Care) Height: 5 ft 8 in Weight:: 143 lb 8 oz BMI: 21.8 Nutrition - 60-Day Assessment Weight Mgt (Other Care) Height: 5 ft 8 in Weight:: 143 lb 8 oz BMI: 21.8 Core - 30-Day Assessment Hypertensio (more content not included)... [facility] Bilirubin directOrdered By: Rohini Cuevas on 11-11-2024 Bilirubin.direct [Mass/Vol] 0.59 mg/dL High 0.00-0.30 [facility] Bilirubin, totalOrdered By: Rohini Cuevas on 11-11-2024 Bilirubin [Mass/Vol] 1.47 mg/dL High 0.00-1.30 [facility] Calculated very low density lipoprotein (VLDL) cholesterol measurementOrdered By: Rohini Cuevas on 11-11-2024 Calculated very low density lipoprotein (VLDL) cholesterol measurement 11 mg/dL 5-40 [facility] LDL calc ser/plasOrdered By: Rohini Cuevas on 11-11-2024 Cholesterol in LDL [Mass/Vol] 58 mg/dL [facility] Comment on above: Xtumbairow=043-515 m g/dL & Higher Ahsz=767 mg/dL or greater Laboratory - Chemistry and C hemistry - challengeOrdered By: Rohini Cuevas on 11-11-2024 AST [Catalytic activity/Vol] 35 U/L <38 [facility] Lipid Profileon 11-11-2024 CHOL:HDL 1.95 Normal [facility] Comment on above: Performed By: #### L 500.4100, L500.3400 #### [facility] Laboratory [address] [place], [place], [id number] ([phone] Cholesterol [Mass/Vol] 143 mg/dL Normal <=200 [facility] Comment on above: Result Comment: Chol esterol level, Desirable <200 mg/dL Borderline high cholesterol 200-239 mg/dL High cholesterol >=240 mg/dL Recommendations of the NCEP Adult Treatment Panel for the following risk-cutoff thresholds for the [place] population. Performed By: #### L 500.4100, L500.3400 #### [facility] [address] [place], [address] Cholesterol in HDL [Mass/Vol] 74 mg/dL Normal [facility] Comment on above: Result Comment: Vero onal Cholesterol Education Program (NCEP) guidelines: <40 mg/dL: Low HDL-cholesterol (major risk factor for CHD) >= 60 mg/dL: High HDL-cholesterol (negative risk factor for CHD) HDL-cholesterol is affected by a number of factors, e.g. smoking, exercise, hormones, sex and age. Performed By: #### L 500.4100, L500.3400 #### [facility] [address] [place], [address] Cholesterol in LDL [Mass/Vol] 58 mg/dL Normal [facility] Comment on above: Result Comment: Bord jtnccc=501-620 mg/dL Higher Mhwt=822 mg/dL or greater Performed By: #### L 500.4100, L500.3400 #### [facility] [address] [place], [address] Cholesterol in VLDL [Mass/Vol] 11 mg/dL Normal 5-40 [facility] Comment on above: Performed By: #### L 500.4100, L500.3400 #### [facility] [address] [place], [address] Triglyceride [Mass/Vol] 57 mg/dL Normal [facility] Comment on above: Result Comment: The drugs N-Acetylcysteine and Metamizole may falsely depress this assay. Normal range: <150 mg/dL Borderline High: 150-199 mg/dL High: 200-499 mg/dL Very High: >500 mg/dL Performed By: #### L 500.4100, L500.3400 #### [facility] [address] [place], [address] Liver Profileon 11-11-2024 Albumin [Mass/Vol] 4.5 g/dL Normal 3.4-4.8 [facility] Comment on above: Performed By: #### L 500.4100, L500.3400 #### [facility] [address] [place], [address] ALK PHOS 65 U/L Normal 40-129 [facility] Comment on above: Performed By: #### L 500.4100, L500.3400 #### [facility] [address] [place], [address] ALT [Catalytic activity/Vol] 33 U/L Normal <=46 [facility] Comment on above: Performed By: #### L 500.4100, L500.3400 #### [facility] [address] [place], [address] AST [Catalytic activity/Vol] 35 U/L Normal <=37 [facility] Comment on above: Performed By: #### L 500.4100, L500.3400 #### [facility] [address] [place], [address] Bilirubin [Mass/Vol] 1.47 mg/dL High 0.00-1.30 [facility] Comment on above: Performed By: #### L 500.4100, L500.3400 #### [facility] [address] [place], [address] Bilirubin.direct [Mass/Vol] 0.59 mg/dL High 0.00-0.30 [facility] Comment on above: Performed By: #### L 500.4100, L500.3400 #### [facility] [address] [place], [address] Globulin (S) [Mass/Vol] 2.2 g/dL Normal 2.2-4.2 [facility] Comment on above: Performed By: #### L 500.4100, L500.3400 #### [facility] [address] [place], [address] T PROT 6.7 g/dL Normal 5.9-8.4 [facility] Comment on above: Performed By: #### L 500.4100, L500.3400 #### [facility] [address] [place], [address] Screening total cholesterol/ high density lipoprotein (HDL) cholesterol ratioOrdered By: Rohini Cuevas on 11-11-2024 Cholesterol.total/Chol esterol in HDL [Mass ratio] 1.95 {ratio} [facility] Serum globulin measurementOr dered By: Rohini Cuevas on 11-11-2024 Globulin (S) [Mass/Vol] 2.2 g/dL 2.2-4.2 [facility] Serum or plasma alanine munoz otransferase (ALT) measurementOrdered By: Rohini Cuevas on 11-11-2024 ALT [Catalytic activity/Vol] 33 U/L <47 [facility] Serum or plasma albumin tiesha urement (mass/volume)Ordered By: Rohini Cuevas on 11-11-2024 Albumin [Mass/Vol] 4.5 g/dL 3.4-4.8 [facility] Serum or plasma alkaline sammy sphatase measurementOrdered By: Rohini Cuevas on 11-11-2024 ALP [Catalytic activity/Vol] 65 U/L 40-129 [facility] Serum or plasma cholesterol in HDL measurement (mass/volume)Ordered By: Rohini Cuevas on 11-11-2024 Cholesterol in HDL [Mass/Vol] 74 mg/dL >40 [facility] Comment on above: National Cholesterol Education Program (NCEP) guidelines:<40 mg/dL: Low HDL-cholesterol (major risk factor for CHD)>= 60 mg/dL: High HDL-cholesterol (negative risk factor for CHD)HDL-cholesterol is affected by a number of factors, e.g. smoking, exercise, hormones, sex and age. Serum or plasma cholesterol measurement (mass/volume)Ordered By: Rohini Cuevas on 11-11-2024 Cholesterol [Mass/Vol] 143 mg/dL <201 [facility] Comment on above: Cholesterol level, D esirable <200 mg/dLBorderline high cholesterol 200-239 mg/dLHigh cholesterol >=240 mg/dLRecommendations of the NCEP Adult Treatment Panel for the following risk-cutoff thresholds for the [place] population. Total proteinOrdered By: Paddy Cuevas on 11-11-2024 Protein [Mass/Vol] 6.7 g/dL 5.9-8.4 [facility] Triglycerides measurementOrd ered By: Rohini Cuevas on 11-11-2024 Triglyceride [Mass/Vol] 57 mg/dL <199 [facility] Comment on above: The drugs N-Acetylcy steine and Metamizole may falsely depress this assay. Normal range: <150 mg/dLBorderline High: 150-199 mg/dLHigh: 200-499 mg/dLVery High: >500 mg/dL No Panel InformationOrdered By: Hang Tejeda on 10-14-2024 [facility] Card[facility] [address] [place] [address] CR - Individual Treatment Plan MR#: [id number] Acct: [id number] Name: DENYS SARGENT Rep #:[id number] : [...] BMI: 21.6 Core - 30-Day Assessment Hypertension [place] [employer] Hypertension Guidelines Reassessment Notes & Comments:: Pt's BP's are within AHA normal limits on some days. Will continue to monitor and send report to pt's physician if necessary. Core - Final Assessment Hypertension [place] [employer] Hypert (more content not included)... [facility] No Panel InformationOrdered By: Hang Tejeda on 08-18-2024 [facility] [address] [place] [address] CR - Individual Treatment Plan MR#: [id number] Acct: [id number] Name: DENYS SARGENT Rep #:[id number] : [...] 3., Pt indepen (more content not included)... [facility] Cardiology Visit Reporton Cardiology Visit Report [facility] 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 Normal [facility] CR - History AND Physicalon 07-21-2024 CR - History & Physical [facility] [address] [place] [address] CR - History Physical MR#: [id number] Acct: [id number] Name: DENYS SARGENT Rep #: [id number] : 1955 69 From: Hang MARTINEZ, RVT PCP: Dr. Benjie Carlson MD DOS: [...] 1 drp ophthalmic (eye) DAILY 04/17 omega 2-hna-csn-fish oil 300 1 cap PO DAILY 04/17/22 [...] Negative Advanced Directives Advanced Directives Power of Clinical Education Academic Coordinator: Yes Living Will: Yes Advance Directives Information [...] artery (07/18/24) Z95.5 2.75 X 22 mm [place] MANJIT to RCA History of removal of [...] for Depres (more content not included)... Normal [facility] Cardiac Cath Interventionon 07-20-2024 Cardiac Cath Intervention [facility] Imaging Services [address] [place] [address] Cardiac Cath Intervention MR#: [id number] Acct: [id number] Name: DENYS SARGENT Rep #: [id number] : 1955 69 From: James Norris MD PCP: Dr. Benjie Carlson MD Status:DEP [facility] Patient Name: DENYS SARGENT Study Date: 07/18/2024 Performing: Regan Zuñiga MD Ht: 63 inches 160.02 cm : 1955 Wt: 144.2 lbs 65.32 kg Age: 69 Gender: male BSA: 1.68 PROCEDURE(S) PERFORMED IC12-(40091/C9600)MANJIT W/WO PTCA, SINGLE CORONARY ARTERY CLINICAL PROFILE [...] multiple views using a 5 Fr. 4.0 [place] catheter. Right Coronary Artery selective angiography was then performed in multiple views using a 5 Fr. 4.0 [place] catheter. Left Ventriculography was performed in [place]ES [...] 3 Lesion Devices: [place] .014 190cm [employer] [place] Straight Cordis 6 Fr AR2 100cm Guide [...] Regan Zuñiga MD 07/20/24 1159 Date James Hinojosa Signature: Date (if indicated) CC: Dr. Benjie Carlson MD; Dr. 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 Benjie Carlson MD Status:[facility] [place] Patient Name: DENYS SARGENT Study Date: 07/18/2024 Performing: James Norris MD Ht: 63 inches 160.02 cm : 1955 Wt: 144.01 lbs 65.32 kg Age: 69 Gender: male BSA: 1.68 PROCEDURE(S) PERFORMED DC01-(67217)LHC/COR/LV IC12-(21076/C9600)MANJIT W/WO PTCA, SINGLE CORONARY ARTERY CLINICAL PROFILE [...] multiple views using a 5 Fr. 4.0 [place] catheter. Right Coronary Artery selective angiography was then performed in multiple views using a 5 Fr. 4.0 [place] catheter. Left Ventriculography was performed in [place] [...] James Norris MD 07/18/24 1019 Date James Hinojosa Signature: Date (if indicated) CC: Dr. Benjie Carlson MD; Dr. James Norris MD Date Dictated: 07/18/24920 Date Transcribed: 07/18/24 1018 Horse Farm Manager: CO Signed Normal [facility] 12 Lead EKG performed by [facility] on 07-06-2024 12 Lead EKG performed by [facility] [address] [place] [address] 12 Lead EKG performed by [facility] 07/06/24 0955 MR#: [id number] Acct: [id number] Name: DENYS SARGENT Rep #: [id number] : 1955 69 From: James Norris MD Attending Dr: Dr. James Norris MD Status: DEP A MB Ordering Dr: James Norris MD Date: 07/06/24 [facility]: [facility] Sex: M C Admitted: BMS/12 Lead EKG performed by [facility] ECG Report Interpretation Sinus Bradycardia -With rate variation cv = 12.Voltage criteria for LVH (S(V1)+R(V6) exceeds 3.50 mV) -Voltage criteria w/o ST/T abnormality may be normal. BORDERLINEElectronically signed on 07/06/2024 at 15:16 by James Norris Software Version [id number] 07/06/24 1521 Date James Norris MD CC: Dr. Benjie Carlson MD Date Dictated: 07/06/24954 Date Transcribed: 07/06/24954 Horse Farm Manager: CO Signed Normal [facility] Basic Metabolic Profile (BMP )on 07-06-2024 BUN/CRE 15.9 RATIO Normal 10-20 [facility] Comment on above: Performed By: #### L 100.0500, L500.2500 #### [facility] [address] [place], [address] CA,Total 9.3 mg/dL Normal 8.5-10.1 [facility] Comment on above: Performed By: #### L 100.0500, L500.2500 #### [facility] [address] [place], [address] Chloride [Moles/Vol] 102 mmol/L Normal 98-107 [facility] Comment on above: Performed By: #### L 100.0500, L500.2500 #### [facility] [address] [place], [address] CO2 [Moles/Vol] 31.0 mmol/L Normal 21.0-32.0 [facility] Comment on above: Performed By: #### L 100.0500, L500.2500 #### [facility] [address] [place], [address] Creatinine [Mass/Vol] 0.88 mg/dL Normal 0.70-1.30 [facility] Comment on above: Result Comment: The validity of the calculated GFR GFRAA in patients over 70 years has not been determined. Clinical correlation is essential. Performed By: #### L 100.0500, L500.2500 #### [facility] [address] [place], [address] EST GFR - AA 110 mL/min Normal >60 [facility] Comment on above: Result Comment: Afri can Tunisian GFR Calc Performed By: #### L 100.0500, L500.2500 #### [facility] [address] [place], [address] GAP 5 Normal 5-15 [facility] Comment on above: Performed By: #### L 100.0500, L500.2500 #### [facility] [address] [place], [address] GFR/1.73 sq M.predicted among non-blacks MDRD (S/P/Bld) [Vol rate/Area] 91 mL/min/{1.73_m2} Normal >60 [facility] Comment on above: Result Comment: Non- GFR Calc Performed By: #### L 100.0500, L500.2500 #### [facility] [address] [place], [address] Glucose [Mass/Vol] 105 mg/dL Normal 74-106 [facility] Comment on above: Result Comment: Fast ing Glucose result from 100 to 125 mg/dL suggests IMPAIRED HOMEOSTASIS per A.D.A. criteria. Performed By: #### L 100.0500, L500.2500 #### [facility] [address] [place], [address] Potassium [Moles/Vol] 3.8 mmol/L Normal 3.5-5.1 [facility] Comment on above: Performed By: #### L 100.0500, L500.2500 #### [facility] [address] [place], [address] Sodium [Moles/Vol] 139 mmol/L Normal 136-145 [facility] Comment on above: Performed By: #### L 100.0500, L500.2500 #### [facility] [address] [place], [address] Urea nitrogen [Mass/Vol] 14 mg/dL Normal 7-18 [facility] Comment on above: Performed By: #### L 100.0500, L500.2500 #### [facility] [address] [place], [address] Blood urea nitrogen (BUN)/cr eatinine ratioOrdered By: James Norris on 07-06-2024 Urea nitrogen/Creatinine [Mass ratio] 15.9 mg/mg 10-20 [facility] CBC-Complete Blood Cnt No Di ffon 07-06-2024 Erythrocyte distribution width (RBC) [Ratio] 14.9 % High 11.6-14.6 [facility] Comment on above: Performed By: #### L 100.0500, L500.2500 #### [facility] [address] [place], [address] Hematocrit (Bld) [Volume fraction] 37.4 % Low 40-54 [facility] Comment on above: Performed By: #### L 100.0500, L500.2500 #### [facility] [address] [place], [address] Hemoglobin (Bld) [Mass/Vol] 13.5 g/dL Normal 13.0-16.5 [facility] Comment on above: Performed By: #### L 100.0500, L500.2500 #### [facility] [address] [place], [address] MCH (RBC) [Entitic mass] 33.0 pg High 27.0-32.0 [facility] Comment on above: Performed By: #### L 100.0500, L500.2500 #### [facility] [address] [place], [address] MCHC (RBC) [Mass/Vol] 36.1 g/dL High 32-36 [facility] Comment on above: Performed By: #### L 100.0500, L500.2500 #### [facility] [address] [place], [address] MCV (RBC) [Entitic vol] 91.4 fL Normal 80-94 [facility] Comment on above: Performed By: #### L 100.0500, L500.2500 #### [facility] [address] [place], [address] Platelet mean volume (Bld) [Entitic vol] 10.0 fL Normal 6.2-12.0 [facility] Comment on above: Performed By: #### L 100.0500, L500.2500 #### [facility] [address] [place], [address] Platelets (Bld) [#/Vol] 197 10*3/uL Normal 150-450 [facility] Comment on above: Performed By: #### L 100.0500, L500.2500 #### [facility] [address] [place], [address] RBC (Bld) [#/Vol] 4.09 10*6/uL Low 4.6-6.2 [facility] Comment on above: Performed By: #### L 100.0500, L500.2500 #### [facility] [address] [place], [address] RDW SD 49.6 fl High 35.1-43.9 [facility] Comment on above: Performed By: #### L 100.0500, L500.2500 #### [facility] [address] [place], [address] WBC (Bld) [#/Vol] 6.2 10*3/uL Normal 4.4-11.0 [facility] Comment on above: Performed By: #### L 100.0500, L500.2500 #### [facility] [address] [place], [address] Carbon dioxide measurementOr dered By: James Norris on 07-06-2024 CO2 [Moles/Vol] 31.0 mmol/L 21.0-32.0 [facility] Cardiology Visit Reporton Cardiology Visit Report [facility] [address] [place] [address] OFFICE VISIT Date of Service: 07/06/24 MR#: [id number] Acct: [id number] Name: DENYS SARGENT Rep #: [id number] : 1955 Provider: Dr. 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 Normal [facility] Chloride measurementOrdered By: James Norris on 07-06-2024 Chloride [Moles/Vol] 102 mmol/L 98-107 [facility] Erythrocyte distribution wid th ratioOrdered By: James Norris on 07-06-2024 Erythrocyte distribution width (RBC) [Ratio] 14.9 % High 11.6-14.6 [facility] Erythrocyte distribution wid th standard deviationOrdered By: James Norris on 07-06-2024 Erythrocyte distribution width (RBC) [Entitic vol] 49.6 fL High 35.1-43.9 [facility] Estimated glomerular filtrat ion rate (GFR) AmericanOrdered By: James Norris on 07-06-2024 Estimated GFR (MDRD) Amer 110 mL/min >60 [facility] Comment on above: GFR Calc Glomerular filtration rate ( GFR) estimationOrdered By: James Norris on 07-06-2024 Estimated GFR (MDRD) Non-Af Amer 91 mL/min >60 [facility] Comment on above: Non- GFR Calc Glucose measurementOrdered B y: James Norris on 07-06-2024 Glucose [Mass/Vol] 105 mg/dL 74-106 [facility] Comment on above: Fasting Glucose resu lt from 100 to 125 mg/dL suggests IMPAIRED HOMEOSTASIS per A.D.A. criteria. Hematocrit Auto (Bld) [Volum e fraction]Ordered By: James Norris on 07-06-2024 Hematocrit (Bld) [Volume fraction] 37.4 % Low 40-54 [facility] Hemoglobin measurementOrdere d By: James Myrna on 07-06-2024 Hemoglobin (Bld) [Mass/Vol] 13.5 g/dL 13.0-16.5 [facility] MCV (mean corpuscular volume ) determinationOrdered By: James Mryna on 07-06-2024 MCV (RBC) [Entitic vol] 91.4 fL 80-94 [facility] Mean corpuscular hemoglobin (MCH) determinationOrdered By: [place] Myrna on 07-06-2024 MCH (RBC) [Entitic mass] 33.0 pg High 27.0-32.0 [facility] Mean corpuscular hemoglobin concentration (MCHC) determinationOrdered By: [place] Myrna on 07-06-2024 MCHC (RBC) [Mass/Vol] 36.1 g/dL High 32-36 [facility] Mean platelet volume determi nationOrdered By: James Myrna on 07-06-2024 Platelet mean volume (Bld) [Entitic vol] 10.0 fL 6.2-12.0 [facility] Platelet countOrdered By: Cy ril Myrna on 07-06-2024 Platelets (Bld) [#/Vol] 197 10*3/uL 150-450 [facility] Potassium measurementOrdered By: [place] Myrna on 07-06-2024 Potassium [Moles/Vol] 3.8 mmol/L 3.5-5.1 [facility] RBC Auto (Bld) [#/Vol]Ordere d By: James Myrna on 07-06-2024 RBC (Bld) [#/Vol] 4.09 10*6/uL Low 4.6-6.2 [facility] Serum anion gap measurementO rdered By: James Myrna on 07-06-2024 Anion gap [Moles/Vol] 5 mmol/L 5-15 [facility] Serum or plasma calcium tiesha urement (mass/volume)Ordered By: [place] Myrna on 07-06-2024 Calcium [Mass/Vol] 9.3 mg/dL 8.5-10.1 [facility] Serum or plasma creatinine m easurement (mass/volume)Ordered By: James Myrna on 07-06-2024 Creatinine [Mass/Vol] 0.88 mg/dL 0.70-1.30 [facility] Comment on above: The validity of the calculated GFR & GFRAA in patients over 70 years has not been determined. Clinical correlation is essential. Serum or plasma urea nitroge n measurement (mass/volume)Ordered By: James Norris on 07-06-2024 Urea nitrogen [Mass/Vol] 14 mg/dL 7-18 [facility] Sodium levelOrdered By: Mariano Norris on 07-06-2024 Sodium [Moles/Vol] 139 mmol/L 136-145 [facility] White blood cell (WBC) count Ordered By: James Norris on 07-06-2024 WBC (Bld) [#/Vol] 6.2 10*3/uL 4.4-11.0 [facility] Stress Reporton 05-18-2024 Stress Report [facility] [address] [place] [id number] MR#: [id number] Acct: [id number] Name: DENYS SARGENT Rep #: [id number] : 1955 69 From: James Norris MD [...] MD Date Dictated: 05/18/241619 Date Transcribed: 05/18/241619 Horse Farm Manager: [place] Signed Normal [facility] CT CARDIAC SCORING WO IV CON TRASTon 04-11-2024 CT CARDIAC SCORING WO IV CONTRAST Interpreted By: Nba Griffiths, STUDY: CT CARDIAC SCORING WO IV CONTRAST; 04/11/2024 7:35 am INDICATION: Signs/Symptoms:BENIGN ESSENTIAL HTN. ,I10 Essential (primary) hypertension COMPARISON: None. ACCESSION NUMBER(S): [id number] ORDERING CLINICIAN: BENJIE CARLSON TECHNIQUE: Using prospective [...] coronary heart disease events. According to the [place] [employer] Clinical Expert Consensus [...] modify other non-lipid coronary risk factors. Reference: [place] P et al. Circulation. 2007; 115:402-426 MACRO: None Signed by: Nba Griffiths 04/12/2024 4:09 PM Dictation workstation: [id number] [facility] Comment on above: Order Comment: RICARDO Pacheco Comprehensive Metabolic Prof nddulce 03-10-2024 Albumin [Mass/Vol] 4.2 g/dL Normal 3.2-5.0 [facility] Comment on above: Performed By: #### L 501.9910, L500.4050, L500.4100 #### [facility] [address] [place], [address] Albumin/Globulin [Mass ratio] 1.3 {ratio} Normal 0.9-2.4 [facility] Comment on above: Performed By: #### L 501.9910, L500.4050, L500.4100 #### [facility] [address] [place], [address] ALK P 58 U/L Normal 45-117 [facility] Comment on above: Performed By: #### L 501.9910, L500.4050, L500.4100 #### [facility] [address] [place], [address] ALT [Catalytic activity/Vol] 26 U/L Normal 16-61 [facility] Comment on above: Performed By: #### L 501.9910, L500.4050, L500.4100 #### [facility] [address] [place], [address] AST [Catalytic activity/Vol] 19 U/L Normal 15-37 [facility] Comment on above: Performed By: #### L 501.9910, L500.4050, L500.4100 #### [facility] [address] [place], [address] Bilirubin [Mass/Vol] 2.10 mg/dL High 0.20-1.00 [facility] Comment on above: Result Comment: For patients on eltrombopag therapy, use of Dimension [place] TBIL is not recommended. Performed By: #### L 501.9910, L500.4050, L500.4100 #### [facility] [address] [place], [address] BUN/CRE 15.1 RATIO Normal 10-20 [facility] Comment on above: Performed By: #### L 501.9910, L500.4050, L500.4100 #### [facility] [address] [place], [address] CA,Total 9.5 mg/dL Normal 8.5-10.1 [facility] Comment on above: Performed By: #### L 501.9910, L500.4050, L500.4100 #### [facility] [address] [place], [address] Chloride [Moles/Vol] 103 mmol/L Normal 98-107 [facility] Comment on above: Performed By: #### L 501.9910, L500.4050, L500.4100 #### [facility] [address] [place], [address] CO2 [Moles/Vol] 30.0 mmol/L Normal 21.0-32.0 [facility] Comment on above: Performed By: #### L 501.9910, L500.4050, L500.4100 #### [facility] [address] [place], [address] Creatinine [Mass/Vol] 0.93 mg/dL Normal 0.70-1.30 [facility] Comment on above: Result Comment: The validity of the calculated GFR GFRAA in patients over 70 years has not been determined. Clinical correlation is essential. Performed By: #### L 501.9910, L500.4050, L500.4100 #### [facility] [address] [place], [address] EST GFR - AA 104 mL/min Normal >60 [facility] Comment on above: Result Comment: Afri can Tunisian GFR Calc Performed By: #### L 501.9910, L500.4050, L500.4100 #### [facility] [address] [place], [address] GAP 4 Low 5-15 [facility] Comment on above: Performed By: #### L 501.9910, L500.4050, L500.4100 #### [facility] [address] [place], [address] GFR/1.73 sq M.predicted among non-blacks MDRD (S/P/Bld) [Vol rate/Area] 86 mL/min/{1.73_m2} Normal >60 [facility] Comment on above: Result Comment: Non- GFR Calc Performed By: #### L 501.9910, L500.4050, L500.4100 #### [facility] [address] [place], [address] Globulin (S) [Mass/Vol] 3.2 g/dL Normal 2.2-4.2 [facility] Comment on above: Performed By: #### L 501.9910, L500.4050, L500.4100 #### [facility] [address] [place], [address] Glucose [Mass/Vol] 112 mg/dL High 74-106 [facility] Comment on above: Result Comment: Fast ing Glucose result from 100 to 125 mg/dL suggests IMPAIRED HOMEOSTASIS per A.D.A. criteria. Performed By: #### L 501.9910, L500.4050, L500.4100 #### [facility] [address] [place], [address] Potassium [Moles/Vol] 3.9 mmol/L Normal 3.5-5.1 [facility] Comment on above: Performed By: #### L 501.9910, L500.4050, L500.4100 #### [facility] [address] [place], [address] Sodium [Moles/Vol] 137 mmol/L Normal 136-145 [facility] Comment on above: Performed By: #### L 501.9910, L500.4050, L500.4100 #### [facility] [address] [place], [address] T PROT 7.4 g/dL Normal 6.4-8.2 [facility] Comment on above: Performed By: #### L 501.9910, L500.4050, L500.4100 #### [facility] [address] [place], [address] Urea nitrogen [Mass/Vol] 14 mg/dL Normal 7-18 [facility] Comment on above: Performed By: #### L 501.9910, L500.4050, L500.4100 #### [facility] [address] [place], [address] Lipid Profileon 03-10-2024 Cholesterol [Mass/Vol] 171 mg/dL Normal 200 [facility] Comment on above: Result Comment: <200 mg/dL Desirable 200-240 mg/dL Borderline >240 mg/dL High Risk Performed By: #### L 501.9910, L500.4050, L500.4100 ####[facility] [address] [place], [address] Cholesterol in HDL [Mass/Vol] 88 mg/dL Normal [facility] Comment on above: Result Comment: The drugs N-Acetylcysteine and Metamizole may falsely depress this assay. Reference Range HDL <40 mg/dL Low HDL Cholesterol HDL >or= 60 mg/dL High HDL Cholesterol Performed By: #### L 501.9910, L500.4050, L500.4100 ####[facility] [address] [place], [address] Cholesterol in LDL [Mass/Vol] 71 mg/dL Normal 0-130 [facility] Comment on above: Performed By: #### L 501.9910, L500.4050, L500.4100 ####[facility] [address] [place], [address] Cholesterol in VLDL [Mass/Vol] 12 mg/dL Normal 5-40 [facility] Comment on above: Performed By: #### L 501.9910, L500.4050, L500.4100 ####[facility] [address] [place], [address] Triglyceride [Mass/Vol] 59 mg/dL Normal [facility] Comment on above: Result Comment: The drugs N-Acetylcysteine and Metamizole may falsely depress this assay. Serum Triglycerides Reference Interval Normal <150 mg/dL Borderline high 150 - 199 mg/dL High 200 - 499 mg/dL Very High > or = 500 mg/dL Performed By: #### L 501.9910, L500.4050, L500.4100 ####[facility] [address] [place], [address] PSA,Total - Annual Screenon 03-10-2024 PSA,TOT SCREEN 1.13 ng/mL Normal 0.00-4.00 [facility] Comment on above: Result Comment: This test was performed using the TPSA assay method for the [employer] chemistry system. Values obtained with different assay methods cannot be used interchangably. When changing PSA assays in the course of monitoring a patient, additional sequential testing should be carried out to confirm baseline values. Performed By: #### L 501.9910, L500.4050, L500.4100 ####[facility] [address] [place], [address] Basophil percentageOrdered B y: Kenny Cralson on 02-12-2023 Bilirubin [Mass/Vol] 1.40 mg/dL 0.20-1.00 [facility] Comment on above: For patients on eltr ombopag therapy, use of Dimension [place] TBIL is not recommended. Chloride [Moles/Vol] 105 mmol/L 98-107 [facility] Cholesterol [Mass/Vol] 157 mg/dL <200 [facility] Comment on above: <200 mg/dL Desirable 200-240 mg/dL Borderline >240 mg/dL High Risk Glucose [Mass/Vol] 107 mg/dL 74-106 [facility] Comment on above: Fasting Glucose resu lt from 100 to 125 mg/dL suggests IMPAIRED HOMEOSTASIS per A.D.A. criteria. Potassium [Moles/Vol] 3.9 mmol/L 3.5-5.1 [facility] Protein [Mass/Vol] 7.1 g/dL 6.4-8.2 [facility] Sodium [Moles/Vol] 139 mmol/L 136-145 [facility] Triglyceride [Mass/Vol] 69 mg/dL <199 [facility] Comment on above: The drugs N-Acetylcy steine and Metamizole may falsely depress this assay.Serum Triglycerides Reference Interval Normal <150 mg/dL Borderline high 150 - 199 mg/dL High 200 - 499 mg/dL Very High > or = 500 mg/dL Laboratory - Chemistry and C hemistry - challengeOrdered By: Kenny Carlson on 02-12-2023 ALP [Catalytic activity/Vol] 62 U/L 45-117 [facility] ALT [Catalytic activity/Vol] 37 U/L 16-61 [facility] CO2 [Moles/Vol] 29.0 mmol/L 21.0-32.0 [facility] Globulin (S) [Mass/Vol] 3.2 g/dL 2.2-4.2 [facility] Urea nitrogen/Creatinine [Mass ratio] 14.9 mg/mg 10-20 [facility] No Panel InformationOrdered By: Kenny Carlson on 02-12-2023 Estimated GFR (MDRD) Amer 112 mL/min >60 [facility] Comment on above: GFR Calc Estimated GFR (MDRD) Non-Af Amer 92 mL/min >60 [facility] Comment on above: Non- GFR Calc Prostate Specific Antigen Screen 1.26 ng/mL 0.00-4.00 [facility] Comment on above: This test was perfor med using the TPSA assay method for [employer] chemistry system. Values obtained with differentassay methods cannot be used interchangably.When changing PSA assays in the course of monitoring apatient, additional sequential testing should be carriedout to confirm baseline values. Serum or plasma albumin tiesha urement (mass/volume)Ordered By: Kenny Carlson on 02-12-2023 Albumin [Mass/Vol] 3.9 g/dL 3.2-5.0 [facility] Serum or plasma albumin/glob ulin mass ratioOrdered By: Kenny Carlson on 02-12-2023 Albumin/Globulin [Mass ratio] 1.2 {ratio} 0.9-2.4 [facility] Serum or plasma calcium tiesha urement (mass/volume)Ordered By: Kenny Carlson on 02-12-2023 Calcium [Mass/Vol] 9.0 mg/dL 8.5-10.1 [facility] Serum or plasma cholesterol in HDL measurement (mass/volume)Ordered By: Kenny Carlson on 02-12-2023 Cholesterol in HDL [Mass/Vol] 72 mg/dL >40 [facility] Comment on above: The drugs N-Acetylcy steine and Metamizole may falsely depress this assay. Reference Range HDL <40 mg/dL Low HDL Cholesterol HDL >or= 60 mg/dL High HDL Cholesterol Serum or plasma cholesterol in VLDL measurement (mass/volume)Ordered By: Kenny Carlson on 02-12-2023 Cholesterol in VLDL [Mass/Vol] 14 mg/dL 5-40 [facility] Serum or plasma creatinine m easurement (mass/volume)Ordered By: Kenny Carlson on 02-12-2023 Creatinine [Mass/Vol] 0.87 mg/dL 0.70-1.30 [facility] Comment on above: The validity of the calculated GFR & GFRAA in patients over 70 years has not been determined. Clinical correlation is essential. Serum or plasma low density lipoprotein (LDL) cholesterol measurement (mass/volume)Ordered By: Kenny Carlson on 02-12-2023 Cholesterol in LDL [Mass/Vol] 71 mg/dL 0-130 [facility] Serum or plasma urea nitroge n measurement (mass/volume)Ordered By: Kenny Carlson on 02-12-2023 Urea nitrogen [Mass/Vol] 13 mg/dL 7-18 [facility] Thin prep Papanicolaou smear with manual screeningOrdered By: Kenny Carlson on 02-12-2023 Thin prep Papanicolaou smear with manual screening 22 U/L 15-37 [facility] Thin prep Papanicolaou smear with manual screening 5 5-15 [facility] Basophil percentageon 2021 Bilirubin [Mass/Vol] 1.60 mg/dL 0.20-1.00 [facility] Work Phone: Comment on above: For patients on eltr ombopag therapy, use of Dimension [place] TBIL is not recommended. Chloride [Moles/Vol] 106 mmol/L 98-107 [facility] Work Phone: Cholesterol [Mass/Vol] 147 mg/dL <200 [facility] Work Phone: Comment on above: <200 mg/dL Desirable 200-240 mg/dL Borderline >240 mg/dL High Risk Glucose [Mass/Vol] 104 mg/dL 74-106 [facility] Work Phone: Comment on above: Fasting Glucose resu lt from 100 to 125 mg/dL suggests IMPAIRED HOMEOSTASIS per A.D.A. criteria. Potassium [Moles/Vol] 3.5 mmol/L 3.5-5.1 [facility] Work Phone: Protein [Mass/Vol] 6.7 g/dL 6.4-8.2 [facility] Work Phone: Sodium [Moles/Vol] 142 mmol/L 136-145 [facility] Work Phone: Triglyceride [Mass/Vol] 71 mg/dL <199 [facility] Work Phone: Comment on above: The drugs N-Acetylcy steine and Metamizole may falsely depress this assay.Serum Triglycerides Reference Interval Normal <150 mg/dL Borderline high 150 - 199 mg/dL High 200 - 499 mg/dL Very High > or = 500 mg/dL Laboratory - Chemistry and C hemistry - challengeon 02-12-2022 ALP [Catalytic activity/Vol] 53 U/L 45-117 [facility] Work Phone: ALT [Catalytic activity/Vol] 29 U/L 16-61 [facility] Work Phone: CO2 [Moles/Vol] 29.0 mmol/L 21.0-32.0 [facility] Work Phone: Globulin (S) [Mass/Vol] 3.0 g/dL 2.2-4.2 [facility] Work Phone: Urea nitrogen/Creatinine [Mass ratio] 16.1 mg/mg 10-20 [facility] Work Phone: No Panel Informationon 02-12 Estimated GFR (MDRD) Amer 104 mL/min >60 [facility] Work Phone: Comment on above: GFR Calc Estimated GFR (MDRD) Non-Af Amer 86 mL/min >60 [facility] Work Phone: Comment on above: Non- GFR Calc Prostate Specific Antigen Screen 0.84 ng/mL 0.00-4.00 [facility] Work Phone: Comment on above: This test was perfor med using the TPSA assay method for theFRS chemistry system. Values obtained with differentassay methods cannot be used interchangably.When changing PSA assays in the course of monitoring apatient, additional sequential testing should be carriedout to confirm baseline values. Serum or plasma albumin tiesha urement (mass/volume)on 02-12-2022 Albumin [Mass/Vol] 3.7 g/dL 3.2-5.0 [facility] Work Phone: Serum or plasma albumin/glob ulin mass ratioon 02-12-2022 Albumin/Globulin [Mass ratio] 1.2 {ratio} 0.9-2.4 [facility] Work Phone: Serum or plasma calcium tiesha urement (mass/volume)on 02-12-2022 Calcium [Mass/Vol] 8.8 mg/dL 8.5-10.1 [facility] Work Phone: Serum or plasma cholesterol in HDL measurement (mass/volume)on 02-12-2022 Cholesterol in HDL [Mass/Vol] 67 mg/dL >40 [facility] Work Phone: Comment on above: The drugs N-Acetylcy steine and Metamizole may falsely depress this assay. Reference Range HDL <40 mg/dL Low HDL Cholesterol HDL >or= 60 mg/dL High HDL Cholesterol Serum or plasma cholesterol in VLDL measurement (mass/volume)on 02-12-2022 Cholesterol in VLDL [Mass/Vol] 14 mg/dL 5-40 [facility] Work Phone: Serum or plasma creatinine m easurement (mass/volume)on 02-12-2022 Creatinine [Mass/Vol] 0.93 mg/dL 0.70-1.30 [facility] Work Phone: Comment on above: The validity of the calculated GFR & GFRAA in patients over 70 years has not been determined. Clinical correlation is essential. Serum or plasma low density lipoprotein (LDL) cholesterol measurement (mass/volume)on 02-12-2022 Cholesterol in LDL [Mass/Vol] 66 mg/dL 0-130 [facility] Work Phone: Serum or plasma urea nitroge n measurement (mass/volume)on 02-12-2022 Urea nitrogen [Mass/Vol] 15 mg/dL 7-18 [facility] Work Phone: Thin prep Papanicolaou smear with manual screeningon 02-12-2022 Thin prep Papanicolaou smear with manual screening 18 U/L 15-37 [facility] Work Phone: Thin prep Papanicolaou smear with manual screening 7 5-15 [facility] Work Phone: Office Visit: UC: igoraxi s (lips/ tongue)on 12-31-2016 Documentation of current medications (procedure) Done Invalid Interpretation Code [facility] Work Phone: Protein mass conc Done [facility] Work Phone: Tobacco smoking status NHIS Never Invalid Interpretation Code [facility] Work Phone: Tobacco smoking status NHIS Never smoker [facility] Work Phone: [phone] Tobacco use [facility] Never smoker Invalid Interpretation Code [facility] Work Phone: Lab Report: CBCDon 1 Erythrocytes (RBC) 4.27 10*6/uL Low 4.6-6.2 [facility] Work Phone: [phone] Hematocrit (HCT) 40.1 % Normal 40-54 [facility] Work Phone: [phone] Hematocrit Volume Fraction (Bld) 40.1 % Normal 40-54 [facility] Work Phone: [phone] Hemoglobin mass conc (Bld) 14.2 g/dL Normal 14.0-18.0 [facility] Work Phone: Platelets 173 10*3/mm3 Normal 150-450 [facility] Work Phone: [phone] Platelets #/vol (Bld) 173 10*3/mm3 Normal 150-450 [facility] Work Phone: RBC #/vol (Bld) 4.27 10*6/uL Low 4.6-6.2 [facility] Work Phone: WBC #/vol (Bld) 5.7 10*3/uL Normal 4.4-11.0 [facility] Work Phone: WBC (Leukocytes) 5.7 10*3/uL Normal 4.4-11.0 [facility] Work Phone: Lab Report: LIPIDon 04-01-20 11 Cholesterol in HDL mass conc 60 mg/dL Normal [facility] Work Phone: [phone] Cholesterol in LDL mass conc 83 mg/dL Normal 0-130 [facility] Work Phone: [phone] Cholesterol mass conc 154 mg/dL Normal 200 [facility] Work Phone: [phone] Lipoprotein.pre-beta mass conc 11 mg/dL Normal 5-40 [facility] Work Phone: [phone] Triglyceride mass conc 57 mg/dL Normal [facility] Work Phone: Lab Report: LIVERon 04-01-20 11 Albumin mass conc 4.4 g/dL Normal 3.4-5.0 [facility] Work Phone: [phone] Alkaline phosphatase (ALP) 55 U/L Normal 50-136 [facility] Work Phone: [phone] ALP enzyme act/vol (Bld) 55 U/L Normal 50-136 [facility] Work Phone: [phone] ALT enzyme act/vol 33 U/L Normal 12-78 [facility] Work Phone: [phone] AST enzyme act/vol 24 U/L Normal 15-37 [facility] Work Phone: [phone] Bilirubin mass conc 1.80 mg/dL High 0.00-1.00 [facility] Work Phone: Bilirubin.direct mass conc 0.38 mg/dL High 0.00-0.30 [facility] Work Phone: [phone] GE use only - for [employer] import when terms are not otherwise specified 7.5 g/dL Normal 6.4-8.2 [facility] Work Phone: [phone] TPROT 7.5 g/dL Normal 6.4-8.2 [facility] Work Phone: Lab Report: PSAon 04-01-2011 prostate specific antigen (PSA) screening 0.5 ng/mL Normal 0.0-4.0 [facility] Work Phone: Protein mass conc 0.5 ng/mL Normal 0.0-4.0 [facility] Work Phone: Office Visit: follow upon Hemoglobin.gastrointes tinal Ql (St) Positive Invalid Interpretation Code [facility] Work Phone: Lab Report: CMPon 2010 Calcium mass conc 8.8 mg/dL Normal 8.5-10.1 [facility] Work Phone: Chloride molar conc 104 mmol/L Normal 98-107 [facility] Work Phone: Creatinine mass conc 1.0 mg/dL Normal 0.8-1.3 [facility] Work Phone: Glucose 99 mg/dL Normal 70-110 [facility] Work Phone: Glucose mass conc 99 mg/dL Normal 70-110 [facility] Work Phone: Potassium molar conc 4.2 mmol/L Normal 3.5-5.1 [facility] Work Phone: Sodium molar conc 141 mmol/L Normal 136-145 [facility] Work Phone: Urea nitrogen mass conc 16 mg/dL Normal 7-18 [facility] Work Phone: Lab Report: T4on 2010 T4 mass conc 6.7 ug/dL Normal 4.5-12.1 [facility] Work Phone: Lab Report: TSHon 2010 Thyrotropin Qn 2.65 u[iU]/mL Normal 0.358-3.74 [facility] Work Phone: Vital Signs Date Time Vital Sign Value Performing Clinician Kimberli aguirre 11-11-2024 07:19-0400 Body height 172.[address] Benjie Carlson MD Work Phone: [facility] 11-11-2024 07:19-0400 Body weight 65.[address] Bnejie Carlson MD Work Phone: [phone] [address] 10-14-2024 07:08-0400 Body height 172.[address] Benjie Carlson MD Work Phone: [phone] [place] [address] 10-14-2024 07:08-0400 Body weight 64.[address] Benjie Carlson MD Work Phone: [phone] [place] [address] 09-16-2024 08:31-0400 Body weight 64.[address] Benjie Carlson MD Work Phone: [phone] [place] [address] 08-18-2024 08:16-0400 Body height 172.[address] Benjie Carlson MD Work Phone: [phone])[phone] [place] [address] 08-18-2024 08:16-0400 Body weight 64.[address] Benjie Carlson MD Work Phone: [phone])[phone] [place] [address] 08-01-2024 08:10-0500 Body mass index (BMI) [Ratio] 21.6 kg/m2 Dr. Benjie Carlson MD Work Phone: [phone])[phone] [place] [address] 08-01-2024 08:10-0500 Body weight 64.[address] Benjie Carlson MD Work Phone: [phone] [place] [address] 08-01-2024 08:10-0500 Diastolic blood pressure 78 mm[Hg] Dr. Benjie Carlson MD Work Phone: [phone] [place] [address] 08-01-2024 08:10-0500 Heart rate 74 /min Dr. Benjie Carlson MD Work Phone: [phone] [place] [address] 08-01-2024 08:10-0500 Respiratory rate 18 /min Dr. Benjie Carlson MD Work Phone: [phone] [place] [address] 08-01-2024 08:10-0500 SaO2% (BldA) [Mass fraction] 100 % Dr. Benjie Carlson MD Work Phone: [phone])012-939139 [place] [address] 08-01-2024 08:10-0500 Systolic blood pressure 145 mm[Hg] Dr. Benjie Carlson MD Work Phone: [facility] 07-21-2024 08:20-0500 Body mass index (BMI) [Ratio] 21.9 kg/m2 Dr. Benjie Carlson MD Work Phone: [phone])449-552339 [place] [address] 07-21-2024 08:20-0500 Diastolic blood pressure 70 mm[Hg] Dr. Benjie Carlson MD Work Phone: 8([phone])494-567939 [place] [address] 07-21-2024 08:20-0500 Heart rate 55 /min Dr. Benjie Carlson MD Work Phone: [phone])850-895539 [place] [address] 07-21-2024 08:20-0500 SaO2% (BldA) [Mass fraction] 100 % Dr. Benjie Carlson MD Work Phone: 4([phone])113-331639 [place] [address] 07-21-2024 08:20-0500 Systolic blood pressure 142 mm[Hg] Dr. Benjie Carlson MD Work Phone: [phone])402-944639 [place] [address] 07-21-2024 08:11-0500 Body weight 65.[address] Benjie Carlson MD Work Phone: [phone])[phone] [place] [address] 07-18-2024 08:24-0500 Body weight 65.[address] Benjie Carlson MD Work Phone: [phone] [place] [address] 07-15-2024 08:23-0500 Body mass index (BMI) [Ratio] 25.4 kg/m2 Dr. Benjie Carlson MD Work Phone: [phone] [place] [address] 07-06-2024 09:54-0500 Body mass index (BMI) [Ratio] 21.2 kg/m2 Dr. Benjie Carlson MD Work Phone: [phone])060-293039 [place] [address] 07-06-2024 09:54-0500 Body weight 65.[address] Benjie Carlson MD Work Phone: [phone])[phone] [place] [address] 07-06-2024 09:54-0500 Diastolic blood pressure 61 mm[Hg] Dr. Benjie Carlson MD Work Phone: 5(855)952-355639 [place] [address] 07-06-2024 09:54-0500 Heart rate 59 /min Dr. Benjie Carlson MD Work Phone: [facility] 07-06-2024 09:54-0500 Respiratory rate 16 /min Dr. Benjie Carlson MD Work Phone: [facility] 07-06-2024 09:54-0500 Systolic blood pressure 150 mm[Hg] Dr. Benjie Carlson MD Work Phone: [facility] 05-23-2022 08:35-0500 Body temperature 97.7 [degF] Dr. Kenny Carlson Work Phone: [facility] Work Phone: 05-23-2022 08:35-0500 Diastolic blood pressure 69 mm[Hg] Dr. Kenny Carlson Work Phone: [facility] Work Phone: 05-23-2022 08:35-0500 Heart rate 64 /min Dr. Kenny Carlson Work Phone: [facility] Work Phone: 05-23-2022 08:35-0500 Respiratory rate 18 /min Dr. Kenny Carlson Work Phone: [facility] Work Phone: 05-23-2022 08:35-0500 SaO2% (BldA) [Mass fraction] 100 % Dr. Kenny Carlson Work Phone: [facility] Work Phone: 05-23-2022 08:35-0500 Systolic blood pressure 107 mm[Hg] Dr. Kenny Carlson Work Phone: [facility] Work Phone: 05-23-2022 07:17-0500 Body height 175.[address] Kenny Carlson Work Phone: [facility] Work Phone: 05-23-2022 07:17-0500 Body mass index (BMI) [Ratio] 21.4 kg/m2 Dr. Kenny Carlson Work Phone: [facility] Work Phone: 05-23-2022 07:17-0500 Body weight [address] Kenny Carlson Work Phone: [facility] Work Phone: 04-17-2022 08:56-0500 Body mass index (BMI) [Ratio] 22.1 kg/m2 Dr. Kenny Carlson Work Phone: [facility] Work Phone: 04-17-2022 08:56-0500 Body weight 68.[address] Kenny Carlson Work Phone: [facility] Work Phone: 12-31-2016 17:24-0400 BMI (Body Mass Index) 21.79 kg/m2 Rudy REINOSO [facility] Work Phone: 12-31-2016 17:24-0400 Body Temperature 98.2 [degF] Rudy REINOSO [facility] Work Phone: 12-31-2016 17:24-0400 BP Diastolic 88 mm[Hg] Rudy REINOSO [facility] Work Phone: 12-31-2016 17:24-0400 BP Systolic 138 mm[Hg] Rudy REINOSO [facility] Work Phone: 12-31-2016 17:24-0400 Height 178.44 cm Rudy REINOSO [facility] Work Phone: 12-31-2016 17:24-0400 Pulse (Heart Rate) 81 /min [facility] Work Phone: 12-31-2016 17:24-0400 Respiratory Rate 14 /min Rudy REINOSO [facility] Work Phone: 12-31-2016 17:24-0400 Weight 69.4 kg Rudy REINOSO [facility] Work Phone: Encounters Encounter Date Encounter Type Care Provider Facility Start: 12-16-2024 ambulatory Benjie Ag lity:[facility] Start: 11-14-2024 End: 12-05-[address] Benjie Carlson MD Work Phone: -Cardiac Rehab Start: 11-14-2024 End: 12-05-[address] James Norris MD -Cardiac Rehab Work Phone: Start: 11-14-[address] James Norris MD -Cardiac Rehab Work Phone: Start: 11-11-2024 End: 11-11-[address] Benjie Carlson MD Work Phone: [facility] Work Phone: Start: 11-11-2024 End: 11-11-2024 Patient encounter procedure Rohini REINOSO -Laboratory Work Phone: Start: 11-11-2024 End: 11-11-2024 ambulatory Benjie Carlson Facility:[facility] Start: 11-04-2024 End: 11-05-[address] Benjie Carlson MD Work Phone: [facility] Work Phone: Start: 11-04-2024 End: 11-05-[address] James Norris MD -Cardiac Rehab Work Phone: Start: 10-05-2024 End: 10-05-2024 ambulatory Benjie Carlson Facility:[facility] Start: 10-05-2024 End: 10-05-[address] James Norris MD -Cardiac Rehab Work Phone: Start: 09-05-2024 End: 09-05-[address] Benjie Carlson MD Work Phone: [facility] Work Phone: Start: 09-05-2024 End: 09-05-[address] James Norris MD -Cardiac Rehab Work Phone: Start: 08-01-2024 End: 08-01-2024 Patient encounter procedure Rohini REINOSO -[facility] Work Phone: Start: 08-01-2024 End: 08-01-2024 ambulatory [facility] Start: 07-25-2024 End: 08-05-[address] James Norris MD -Cardiac Rehab Work Phone: Start: 07-25-2024 End: 08-05-2024 ambulatory [facility] Facility:[facility] Start: 07-21-2024 End: 07-21-[address] James Norris MD -Cardiac Rehab Work Phone: Start: 07-21-2024 End: 07-21-2024 ambulatory [facility] Facility:[facility] Start: 07-18-2024 Non-patient / Non-visit Dr. Mo OMALLEY -[facility] Start: 07-18-2024 ambulatory [facility] Faci lity:[facility] Start: 07-18-2024 End: 07-18-2024 Admission to same day surgery center Dr. James Norris MD -Telephone Order Supervisor/Special Procedures Work Phone: Start: 07-18-2024 End: 07-18-2024 ambulatory [facility] Facility:[facility] Start: 07-06-2024 End: 07-06-[address] James Norris MD -Laboratory Work Phone: Start: 07-06-2024 End: 07-06-[address] James Norris MD -[facility] Work Phone: Start: 07-06-2024 End: 07-06-2024 ambulatory [facility] Start: 07-06-2024 End: 07-06-2024 ambulatory Benjie Carlson Facility:[facility] Start: 05-18-2024 ambulatory Benjie Carlson Faci lity:[facility] Start: 05-18-2024 Non-patient / Non-visit Dr. Mo OMALLEY -[facility] Start: 05-18-2024 End: 05-18-[address] Benjie Carlson MD -Cardiovascular Services Work Phone: Start: 05-18-2024 End: 05-18-2024 ambulatory Benjie Carlson Facility:[facility] Start: 04-11-2024 End: 04-11-2024 Subsequent hospital visit by physician [address] Comment on above: Essential (primary) hypertension Start: 04-11-2024 End: 04-11-2024 ambulatory [facility] Start: 03-10-2024 End: 03-10-2024 ambulatory Benjie Carlson Facility:[facility] Start: 02-12-2023 End: 02-12-2023 ambulatory [facility] Work Phone: Start: 02-12-2023 End: 02-12-2023 Patient encounter procedure [facility] Work Phone: Start: 05-23-2022 Non-patient / Non-visit Dr. Blanka Carlson Work Phone: [facility] Start: 05-23-2022 End: 05-23-2022 Admission to same day surgery center Dr. Kenny Carlson Work Phone: [facility]-Endoscopy Start: 05-23-2022 End: 05-23-[address] Kenny Carlson Work Phone: [facility] Work Phone: Start: 04-17-2022 Non-patient / Non-visit Dr. Blanka Carlson Work Phone: [facility] Start: 02-12-2022 End: 02-12-2022 ambulatory [facility] Work Phone: Start: 02-12-2022 End: 02-12-2022 Patient encounter procedure [facility]-Laboratory, [place] [facility] Date Procedure Procedure Detail Performing Clinician [...] Treatment Date Care Activity Detail Author Start: 09-07-2033 DTaP/Tdap/Td Vaccine s (3 - Td or Tdap) DTaP/Tdap/Td Vaccines (3 - Td or Tdap) [facility] Start: 05-23-2032 Screening for malign ant neoplasm of colon [facility] Start: 2029 RSV High Risk: (Elde rly (60+) or Population) (1 - 1-dose 75+ series) RSV High Risk: (Elderly (60+) or Population) (1 - 1-dose 75+ series) [facility] Start: 07-18-2024 Patient referral [facility] Work Phone: Start: 07-18-2024 Cardiac rehabilitati on - phase 1 [facility] Start: 07-18-2024 Cardiac rehabilitati on - phase 2 [facility] Start: 07-18-2024 Patient discharge [facility] Start: 05-23-2022 Patient discharge [facility] Work Phone: Start: 12-31-2016 End: 12-31-2016 Appointment Appointment [facility] Work Phone: Start: 04-01-2016 Lipid panel Lipid Panel [facility] Start: 04-01-2011 End: 04-01-2011 *CBC with Differential *CBC with Differential [facility] Work Phone: Start: 04-01-2011 End: 04-01-2011 *Liver/Hepatic Function Panel *Liver/Hepatic Function Panel [facility] Work Phone: Start: 04-01-2011 End: 04-01-2011 Lipid panel [AGGREGATE] *Lipid Profile [facility] Work Phone: Start: 04-01-2011 End: 04-01-2011 PSA *PSA, Annual Screening [facility] Work Phone: Start: 04-02-2010 End: 2010 *Thyroid Profile (T3,T4,TSH) *Thyroid Profile (T3,T4,TSH) [facility] Work Phone: Start: 04-02-2010 End: 2010 Comprehen metabolic panel *CMP Complete Metabolic Panel [facility] Work Phone: Start: 04-02-2010 End: 2010 Lipid panel *Lipid Profile [facility] Work Phone: Start: 04-02-2010 End: 04-01-2011 Podiatry Referral Podiatry Referral [facility] Work Phone: Start: 04-02-2010 End: 2010 Protein mass conc *Lipid Profile [facility] Work Phone: Start: 1972 Hepatitis C screening Hepatitis C Sc [facility] Start: 1954 Medicare Annual Well ness Visit Medicare Annual Wellness Visit (AWV) [facility] Start: 1955 Screening for malign ant neoplasm of colon [facility] Catheterization of l eft heart [facility] Colonoscopy [facility] Work Phone: End: 04-11-2024 CT for calcium scoring WO contrast and CTA W contrast IV Heart and coronary arteries [facility] Service Area Work Phone: Comment on above: Once for 1 Occurrenc es starting 04/11/2024 until 04/11/2024 Hepatic function panel [facility] Lipid 1996 panel - S sky or Plasma [facility] Patient referral [facility] Work Phone: Payers Date Payer Category Payer Self-pay [id number] 2021 Unknown [id number] 2019 Medicare [id number] 2019 Medicare [id number] 1954 Unknown [id number] 2.16.8 [id number] Unknown [id number] Unknown [id number] Unknown [id number] 2.16.8 [id number] Unknown [id number] 2.16.8 [id number] Unknown [id number] 2.16.8 [id number] Unknown [id number] 2.16.8 [id number] Unknown [id number] 2.16.8 [id number] Unknown [id number] 2.16.8 [id number] Unknown [id number] 2.16.8 [id number] Unknown [id number] 2.16.8 [id number] Unknown [id number] 2.16.8 [id number] Unknown [id number] 2.16.8 [id number] Unknown [id number] 2.16.8 [id number] Unknown [id number] Unknown [id number] [id number] Unknown [id number] [id number] Unknown [id number] [id number] Unknown [id number] [id number] [id number] Social History Date Type Detail Facility Start: 12-31-2016 End: 05-23-2022 Tobacco smoking status NHIS Unknown if ever smoked [facility] Start: 1955 Sex Assigned At Male [facility] Start: 1955 Sex assigned at Not on file [facility] Work Phone: Gender identity Not on file [facility] Work Phone: Start: 04-01-2024 End: 04-11-2024 Exposure to SARS-CoV-2 (event) Not sure [facility] Start: 07-21-2024 Tobacco smoking stat us NHIS Never smoked tobacco (finding) [facility] Start: 09-06-2024 Sex Male (finding) [facility] Medical Equipment Procedure Code Equipment Code Equipment Origin al Text Equipment Identifier Dates Drug-eluting coronary artery stent, [id number] ()[id number] FDA Start: 07-18-2024 Goals Date Patient Goal Desired Activity /State Mental Status Date Assessment Result Facility 05-23-2022 Cognitive function Level Of Consciousness Sedated [facility] Work Phone: 05-23-2022 Cognitive function Voice/Name [facility] Work Phone: Evaluation note 08-01-2024 Note Date & Type Note Facility 08-01-2024 Evaluation note Diagnosis Onset Date Resolution Abnormal breath sounds acute August 01, 2024 8:55am Benign essential HTN acute August 01, 2024 8:55am Hyperlipidemia, unspecified acute August 01, 2024 8:55am Stented coronary artery July 18, 2024 chronic August 01, 2024 8:55am [facility] Work Phone: Chief complaint+Reason for visit [...] 8:55am Stented coronary artery August 01 8:55am [facility] Work Phone: Evaluation note 07-06-2024 Note [...] 18, 2024 chronic August 01, 2024 8:55am [facility] Work Phone: Evaluation note Note Date & Type Note Facility Evaluation note No assessment information availa ble [facility] Work Phone: Evaluation note Note Date & Type Note Facility Evaluation note Diagnosis Onset Date Encounter for screening for malignant neoplasm of colon acute [facility] Work Phone: Evaluation note Note Date & Type Note Facility Evaluation note Diagnosis Essential (primary) hypertension Unspecified essential hypertension documented in this encounter [facility] Work Phone: Reason for referral (narrative) Note Date & Type Note Facility Reason for referral (narrative) No reason for referral information available [facility] Work Phone: Reason for visit Narrative Imaging (Routine) - Authorized Note Date & Type Note Facility Reason for visit Narrative Specialty Diagnoses / Procedures Referred By Contac t Referred To Contact Radiology Diagnoses Essential (primary) hypertension Procedures CT cardiac scoring wo IV contrast Benjie Carlson MD [address] [place] [address] Phone: tel: fax: Referral ID Status Reason Start Date Expiration Date Visits Requested Visits Authorized [id number] Authorized Perform Procedure 03/13/2024 03/13/2025 1 1 [facility] Work Phone: Advance Directives No Advanced Directives Records Found Advance Directive Response Recorded Date/ Time Living Will Yes December 31, 2016 6:04pm Power of Clinical Education Academic Coordinator Yes December 31 6:04pm Advance Directive Response Recorded Date/ Time Name of Medical Power of Clinical Education Academic Coordinator May 21, 2022 11:45am Living Will Yes May 21 11:45am Power of Clinical Education Academic Coordinator Yes May 21, 2022 11:45am Advance Directive Response Recorded Date/ Time Living Will Yes May 21 12:45pm Power of Clinical Education Academic Coordinator Yes May 21, 2022 12:45pm Advance Directive Response Recorded Date/ Time Advance Directives on File Yes 2024 9:24am Living Will Yes July 18 9:24am Do you have a Healthcare Power of Clinical Education Academic Coordinator? Yes July 18, 2024 9:24am Name of Medical Power of Clinical Education Academic Coordinator Lola Sargent July 18, 2024 9:24am Advance Directives Yes July 9:24am Advance Directives on File No 2024 9:06am Living Will Yes July 21 9:20am Do you have a Healthcare Power of Clinical Education Academic Coordinator? Yes July 21, 2024 9:20am Advance Directive Response Recorded Date/ Time Advance Directives on File No 2024 9:06am Living Will Yes July 21 9:20am Do you have a Healthcare Power of Clinical Education Academic Coordinator? Yes July 21, 2024 9:20am Advance Directives Yes July 9:24am Advance Directive Response Recorded Date/ Time Advance Directives Yes July 9:24am Chief Complaint and Reason for Visit Chief [...] with stent July 25, 2024 8:03am S/P [facility] 07/18August 01, 2024 8:55am PCI with stent September 05, 2024 8:0 0am Reason for Visit Admit Date Benign essential HTN July 06, 2024 9:49am Elevated coronary artery calcium score J anuary 2024 9:49am Hyperlipidemia, unspecified June 9:49am Abnormal breath sounds August 01 8:55am Benign essential HTN August 01, 2024 8:55am Hyperlipidemia, unspecified July 8:55am Stented coronary artery August 01 025 8:55am Chief Complaint Admit Date PCI with stent July 21, 2024 7:56am PCI with stent July 25, 2024 8:03am S/P [facility] 07/18August 01, 2024 8:55am PCI with stent September 05, 2024 8:0 0am PCI with stent October 05, 2024 8:0 0am PCI with stent November 04, 2024 8:00a m INT LABS November 11, 2024 6:48a m PCI with stent November 14, 2024 8:00a m Reason for Visit Admit Date Abnormal breath sounds August 01 8:55am Benign essential HTN August 01, 2024 8:55am Hyperlipidemia, unspecified July 8:55am Stented coronary artery August 01 025 8:55am Chief Complaint Admit Date PCI with stent September 05, 2024 8:0 0am PCI with stent October 05, 2024 8:0 0am PCI with stent November 04, 2024 8:00a m INT LABS November 11, 2024 6:48a m PCI with stent November 14, 2024 8:00a m Family History No Family History Records Found [...] Kenny Carlson MD Primary Care Provider, Atte nding Provider Active Mosquito Sprayer Relationship Specialty Start Date End Date Benjie Carlson MD [address] [place] [facility] [place] [address] [place] [address] PCP - General Family Medicine 04/11/24 Team Status: Active Member Role Status Dates Dr. Benjie Carlson MD Primary Care Provider Acti ve Team Status: Inactive Member Role Status Dates Dr. Benjie Carlson MD Primary Care Provider Acti ve Start: May 18, 2024 End: May 18, 2024 Dr. Bejnie Carlson MD Attending Provider Active Start: May [...] November 04, 2024 End: November 05, 2024 Team Status: Inactive Member Role Status Dates Dr. Benjie Carlson MD Primary Care Provider Acti ve Start: November 11, 2024 End: November 11, 2024 Rohini Cuevas PA, PA Attending Provider Active Start: November 11, 2024 End: November 11, 2024 Rohini Cuevas PA, PA Referring Provider Active Start: November 11, 2024 End: November 11, 2024 Team Status: Active Member Role Status Dates Dr. Benjie Carlson MD Primary Care Provider Acti ve Start: November 14, 2024 Dr. James Norris MD Attending Provider Active S tart: November 14, 2024 Dr. James Norris MD Referring Provider Active S tart: November 14, 2024 Team Status: Active Member Role/Relationship Status Dates Dr. Benjie Carlson MD Primary Care Provider Acti ve Team Status: Inactive Member Role/Relationship Status Dates Dr. Benjie Carlson MD Primary Care Provider Acti ve Start: September 05, 2024 End: September 05, 2024 Dr. James Norris MD Attending Provider Active S tart: September 05, 2024 End: September 05, 2024 Dr. James Norris MD Referring Provider Active S tart: September 05, 2024 End: September 05, 2024 Team Status: Inactive Member Role/Relationship Status Dates Dr. Benjie Carlson MD Primary Care Provider Acti ve Start: October 05, 2024 End: October 05, 2024 Dr. James Norris MD Attending Provider Active S tart: October 05, 2024 End: October 05, 2024 Dr. James Norris MD Referring Provider Active S tart: October 05, 2024 End: October 05, 2024 Team Status: Inactive Member Role/Relationship Status Dates Dr. Benjie Carlson MD Primary Care Provider Acti ve Start: November 04, 2024 End: November 05, 2024 Dr. James Norris MD Attending Provider Active S tart: November 04, 2024 End: November 05, 2024 Dr. James Norris MD Referring Provider Active S tart: November 04, 2024 End: November 05, 2024 Team Status: Inactive Member Role/Relationship Status Dates Dr. Benjie Carlson MD Primary Care Provider Acti ve Start: November 11, 2024 End: November 11, 2024 Rohini Cuevas PA, PA Attending Provider Active Start: November 11, 2024 End: November 11, 2024 Rohini Cuevas PA, PA Referring Provider Active Start: November 11, 2024 End: November 11, 2024 Team Status: Inactive Member Role/Relationship Status Dates Dr. Benjie Carlson MD Primary Care Provider Acti ve Start: November 14, 2024 End: December 05, 2024 Dr. James Norris MD Attending Provider Active S tart: November 14, 2024 End: December 05, 2024 Dr. James Norris MD Referring Provider Active S tart: November 14, 2024 End: December 05, 2024 (unrecognized sect ion and content) No Status Records FoundNo Status Records Found INFORMATION SOURCE (unrecogn ized section and content) DATE CREATED AUTHOR 04/18/2024 [facility] DATE CREATED AUTHOR AUTHOR'S ORGANIZ ATION 12/07/2024 [facility] FOR RECORDS PERTAINING TO PATIENTS WHO [...] BE BASED ON THE PRIMARY CLINICAL RECORDS. [employer] provides no warranty or guarantee of the accuracy or completeness of information in this document.
== END | disposition home or self-care (01) ==
LOC: MTRAD 09:15
PROVIDERS: PCP Family Medicine; Referring Provider Family Medicine; Visit Provider Family Medicine
DX: S59.912A Unspecified injury of left forearm, initial encounter (principal)
CPT/HCPCS: 73090